=== PATIENT | female | born 1935 | race Caucasian/White ===

== ENCOUNTER → 2018-11-02 | Outpatient (CLI) | payer MEDICARE, SELFPAY ==
[2018-09-26 11:32] VITALS: BMI 29.2
--- NOTE | 2018-11-02 12:28 | CT_ITS ---
STUDY: CT BRAIN WITHOUT CONTRAST REASON FOR EXAM: Female, 83 years old. Slurred speech RADIATION DOSAGE (If Supplied By Facility): CTDIvol = ( 44.99 ) mGy, DLP = ( 745.49 ) mGycm TECHNIQUE: Transaxial CT imaging of the brain was performed without administration of intravenous contrast material. Sagittal and coronal 2-D MPR Individualized dose optimization techniques were used for this CT. COMPARISON: None 06/26/2015. FINDINGS: Paranasal sinuses clear. Prominent leftward bowing of the nasal septum. Mastoid air cells and middle ear cavities clear. Symmetric and grossly normal features of the vestibular and acoustic apparatus of the temporal bones. Craniofacial osseous structures normal. Extra cranial soft tissues including orbital contents appear normal. Mild symmetric expansion of lateral ventricles and extra axial spaces consistent with age-related cerebral atrophy. Patchy and partially confluent chronic low-density changes of the deep white matter most consistent with chronic microvascular ischemic disease. 6.3 mm lacunar focus within the right cerebellar hemisphere consistent with old lacunar infarct. There is no acute intracranial bleed, mass or mass effect nor any specific evidence of acute territorial infarct. CT/Brain/Head without Contrast IMPRESSION: No acute intracranial process. The small chronic appearing lacunar infarct of the right cerebellar hemisphere was not present on the prior study of 2014. The degree of chronic white matter disease of the cerebral hemispheres, and the degree of atrophy are quite similar. Electronically Signed: Earnest Cuba MD at 12:55 EDT Tel , Service support ,
--- NOTE | 2018-11-02 12:46 | ECHOCS_ITS ---
Reason For Study: CVA/TIA Procedure This was a 2D Doppler, Color Flow transthoracic echocardiogram. Exam performed in department. Left Ventricle Moderate concentric left ventricular hypertrophy. The estimated ejection fraction is 45 %. Paced septal motion. There are regional wall motion abnormalities as specified. Anterior [employer] : Akinetic. Mid-anteroseptal : Severely Hypokinetic. Right Ventricle Normal size and thickness. ICD or pacer leads identified within the right ventricle. Normal systolic function. Atria The left atrium is moderately enlarged. Normal right atrium. Mitral Valve Mild diffuse mitral valve thickening. Moderate mitral annular calcification. Trivial mitral valve insufficiency. Tricuspid Valve Normal tricuspid valve. Trivial tricuspid valve insufficiency. Right ventricular systolic pressure estimated to be 27 mmHg. Pulmonic Valve Normal pulmonic valve. Trivial pulmonic valve insufficiency. Great Vessels Normal aortic root. Normal arch. Normal inferior vena cava. Inferior vena cava collapse with sniff. Pericardium/Pleural No pericardial effusion. Medication 22 gauge I.V. with prn adaptor inserted into right arm. Diluted definity 3ml given slow IV push to enhance endocardial definition. Performed a rapid injection of agitated mix of 9 cc saline and 1cc air to assess for atrial septal defect. MMode/2D Measurements & Calculations LVIDd: 4.4 cm IVSd: 1.5 cm Ao root diam: 3.5 cm LVIDs: 3.4 cm LVPWd: 1.7 cm RVDd: 2.7 cm FS: 22.3 % LAV(MOD-bp): 73.4 ml LVAd ap4: 34.5 cm2 SV(MOD-sp4): 49.1 ml LAV(MOD-bp) Indexed: 42.2 ml/m2 EDV(MOD-sp4): 118.9 ml LAV(MOD-sp2): 64.1 ml EDV(sp4-el): 124.4 ml LAV(MOD-sp4): 78.5 ml LVAs ap4: 26.7 cm2 ESV(MOD-sp4): 69.8 ml ESV(sp4-el): 74.6 ml EF(MOD-sp4): 41.3 % EF(sp4-el): 40.0 % SV(sp4-el): 49.7 ml LA A4 area: 23.5 cm2 RA A4 area: 15.6 cm2 Time Measurements MV dec time: 0.24 sec Doppler Measurements & Calculations MV E max joshua: 72.3 cm/sec Lat Peak E' Joshua: 8.4 cm/sec Med Peak E' Joshua: 5.0 cm/sec MV A max joshua: 100.0 cm/sec E/E' lat: 8.6 E/E' med: 14.4 MV E/A: 0.72 MV V2 max: 128.1 cm/sec MV P1/2t max joshua: 98.2 cm/sec Ao V2 max: 134.9 cm/sec MV max P.6 mmHg MV P1/2t: 61.2 msec Ao max P.3 mmHg MV V2 mean: 69.3 cm/sec Ao V2 mean: 79.0 cm/sec MV mean P.3 mmHg MV dec slope: 470.1 cm/sec2 Ao mean P.1 mmHg MV V2 VTI: 32.0 cm MVA(P1/2t): 3.6 cm2 Ao V2 VTI: 25.0 cm LV V1 max: 114.7 cm/sec PA V2 max: 112.7 cm/sec PI end-d joshua: 117.5 cm/sec LV V1 max P.3 mmHg LV V1 mean P.3 mmHg LV V1 mean: 67.1 cm/sec LV V1 VTI: 24.7 cm TR max joshua: 244.3 cm/sec TR max P.0 mmHg Interpretation Summary Moderate concentric left ventricular hypertrophy. The estimated ejection fraction is 45 %. There are regional wall motion abnormalities as specified. The left atrium is moderately enlarged. Trivial mitral valve insufficiency. Trivial tricuspid valve insufficiency. Right ventricular systolic pressure estimated to be 27 mmHg. Compared to echo report dated 10/14/2015, no appreciable changes noted. The study was technically difficult. Contrast injection was performed. Ordering Physician: Toya Mark Referring Physician: Toya Mark Performed By: Andres Wilson RCS
--- NOTE | 2018-11-02 12:46 | CDU_ITS ---
Reason For Study: slurred speech Rt. Velocities/BP Lt. Velocities/BP Prox CCA 97.2/11.3 cm/sec. Prox CCA 83.8/7.1 cm/sec. Mid CCA 106.3/16.8 cm/sec. Mid CCA 65.0/13.4 cm/sec. Dist CCA 84.4/13.2 cm/sec. Dist CCA 42.9/14.6 cm/sec. Prox ICA 54.3/7.6 cm/sec. Prox ICA 49.3/9.8 cm/sec. Mid ICA 58.0/16.2 cm/sec. Mid ICA 72.3/13.4 cm/sec. Dist ICA 71.6/10.3 cm/sec. Dist ICA 89.7/21.7 cm/sec. Rt. ICA/CCA = 71.6/106.3=0.7. Lt. ICA/CCA = 89.7/65.0=1.38. Prox ECA 75.3/9.5 cm/sec. Prox ECA 82.1/13.4 cm/sec. Rt. Vert. 31.4/5.9 cm/sec. Lt. Vert. 39.5/10.9 cm/sec. Right Extracranial There is homogeneous, smooth atherosclerotic plaque noted in the right common carotid artery. There is homogeneous, smooth atherosclerotic plaque noted in the right internal carotid artery. There is intimal thickening but no significant atherosclerotic plaque noted in the right external carotid artery. Antegrade flow is noted in the right vertebral artery. Left Extracranial There is homogeneous, smooth atherosclerotic plaque noted in the left common carotid artery. There is homogeneous, smooth atherosclerotic plaque noted in the left internal carotid artery. There is heterogeneous, irregular atherosclerotic plaque noted in the left external carotid artery. Antegrade flow is noted in the left vertebral artery. Interpretation Summary Mild (<50%) stenosis right extracranial internal carotid. Mild (<50%) stenosis left extracranial internal carotid. Flow within the vertebral arteries is antegrade bilaterally. Ordering Physician: Toya Mark Referring Physician: Toya Mark Performed By: Lana Ball, MANJEET, RVT
== END | disposition home or self-care (01) ==
PROVIDERS: Family Provider Internal Medicine; PCP Internal Medicine; Referring Provider Internal Medicine; Visit Provider Internal Medicine
DX: R47.81 Slurred speech (principal); R94.31 Abnormal electrocardiogram [ECG] [EKG]
CPT/HCPCS: 70450; 93306; 93880; Q9957; A4216; C8929

== ENCOUNTER → 2020-04-02 14:38 | Outpatient (CLI) | payer MEDICARE, SELFPAY ==
[2020-02-19 15:44] VITALS: BMI 30.7
--- NOTE | 2020-04-02 14:50 | RAD_ITS ---
STUDY: X-RAY CHEST REASON FOR EXAM: Female, 85 years old. PRE OPP PPM GENERATOR CHANGE TECHNIQUE: PA and lateral views of the chest. COMPARISON: Comparison is made with prior examination of 06/26/2013. FINDINGS: Hyperinflation. Stable mild increased markings at the lung bases suggestive of mild bibasilar scarring. There is no demonstrated pleural abnormality. Sternal cerclage wires and vascular clips are present from a prior sternotomy and coronary artery bypass graft procedure (CABG). A left-sided dual-chamber pacemaker is seen. Normal mediastinum and eve. Normal visualized pulmonary arteries. There is atherosclerotic tortuosity of the aortic arch and descending thoracic aorta. There are diffuse degenerative changes of the visualized thoracic spine. Normal visualized ribs, clavicles, and shoulders. There is no demonstrated abnormality of the visualized soft tissue structures of the upper abdomen. RAD/Chest PA and Lateral IMPRESSION: Hyperinflation. Stable mild increased markings at the lung bases suggestive of mild scarring. Electronically Signed: Rito Puente, at 15:08 EDT , Service support ,
[2020-04-02 15:27] LABS: Bacteria 0 SEEN /hpf (None Seen); Mucous, Urine 0 SEEN /hpf (<or=2+)
[2020-04-02 15:48] LABS: Hematocrit 38.6 % (37-47); Hemoglobin 12.3 g/dL (12.0-15.0); Mean Corp Hgb Conc 31.9 g/dL (32-36); Mean Corpuscular Hgb 29.8 pg (27.0-32.0); Mean Corpuscular Volume 93.5 fL (81-99); Mean Platelet Vol. 11.2 fl (6.2-12.0); Platelet Count 157 K/mm3 (150-450); RBC Distribution Width SD 44.6 fl (35.1-43.9); Red Blood Count 4.13 M/mm3 (4.2-5.4)
[2020-04-02 15:55] LABS: Color, Urine Yellow (Yellow); Glucose, Dipstick 100 mg/dl (Normal); Ketone-Dipstick Negative (Negative); Leukocyte Esterase-Dipstick 25 /ul (Negative); Nitrite-Dipstick Negative (Negative); Occult Blood-Urine 25 /ul (Negative); Protein-Dipstick 15 mg/dl (Negative); Urine Bilirubin Dipstick Negative (Negative); Urine Clarity Clear (Clear); Urine Urobilinogen 1 mg/dl (Normal); Urine pH 6.5 (5.0 - 8.0)
[2020-04-02 16:02] LABS: International Normalized Ratio 1.2
[2020-04-02 16:26] LABS: Hyaline Cast 0-5 SEEN /lpf (0-5)
[2020-04-02 16:28] LABS: Red Blood Cells-Urine 0-5 SEEN /hpf (0-5); Squamous Epithelial Cells - UA 0-5 SEEN /hpf (5-10); White Blood Cells 5-10 SEEN /hpf (0-5)
[2020-04-02 16:41] LABS: Anion Gap 7 (5-15); BUN 17 mg/dL (7-18); BUN/Creat Ratio 17.9 RATIO (10-20); Calcium,Total 9.4 mg/dL (8.5-10.1); Chloride 109 mmol/L (98-107); Creatinine, Serum 0.95 mg/dL (0.55-1.02); EST Glomerular Filtration Rate 59 mL/min (>60); Est Glom Filt Rate - Afr Amer 72 mL/min (>60); Glucose 134 mg/dL (74-106); Potassium 3.7 mmol/L (3.5-5.1); Sodium Level 141 mmol/L (136-145)
== END ==
LOC: RAD 14:42
PROVIDERS: PCP Internal Medicine; Referring Provider Internal Medicine Cardiovascular Disease; Visit Provider Internal Medicine Cardiovascular Disease
DX: I25.5 Ischemic cardiomyopathy (principal); I42.8 Other cardiomyopathies; I48.0 Paroxysmal atrial fibrillation; I49.5 Sick sinus syndrome; Z95.0 Presence of cardiac pacemaker; I25.10 Atherosclerotic heart disease of native coronary artery without angina pectoris; I44.7 Left bundle-branch block, unspecified
CPT/HCPCS: 36415; 71046; 80048; 81001; 85027; 85610

== ENCOUNTER 2020-04-05 15:55 | Emergency (ER) | payer OTHER, SELFPAY ==
[2020-04-05 15:55] VITALS: BMI 29.9
[2020-04-05 15:56] VITALS: BP 156/77; PULSE 60; RESP 16; TEMP 36.2; O2SAT 98; BMI 29.9
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
== END 2020-04-05 18:09 | disposition home or self-care (01) ==
LOC: ED 17:18
PROVIDERS: Emergency Provider Student in an Organized Health Care Education/Training Program; PCP Internal Medicine
DX: S29.012A Strain of muscle and tendon of back wall of thorax, initial encounter (principal); S16.1XXA Strain of muscle, fascia and tendon at neck level, initial encounter; S09.90XA Unspecified injury of head, initial encounter; I25.10 Atherosclerotic heart disease of native coronary artery without angina pectoris; Z95.5 Presence of coronary angioplasty implant and graft; Z95.1 Presence of aortocoronary bypass graft; Z95.0 Presence of cardiac pacemaker; Z79.02 Long term (current) use of antithrombotics/antiplatelets; V89.2XXA Person injured in unspecified motor-vehicle accident, traffic, initial encounter
CPT/HCPCS: 70450; 72125; 72128; 99282

== ENCOUNTER 2020-04-09 10:15 | Day surgery (SDC) | payer MEDICARE, SELFPAY ==
[2020-02-19 15:44] VITALS: BMI 30.7
[2020-04-08 11:19] VITALS: BMI 29.9
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
--- NOTE | 2020-04-09 13:28 | CL.IE_ITS ---
Patient: VANESA SMITH Study Date: 04/09/2020 Performing: Nam Olson MD : 1935 Age: 85 Gender: female PROCEDURES PERFORMED [id number] REMOVAL+REPLACEMENT PACER-DUAL LEAD INDICATIONS Atrioventricular (AV) block End-of-life replacement indicator PROCEDURE DETAILS The patient was brought to the Catheterization Lab in the postabsorptive nonsedated state. Infor med consent was obtained prior to the procedure. Local anesthetic was given subcutaneously to the le ft upper chest area with Lidocaine 2%. Incision was made to the left upper chest. PPM generator was r emoved. Device pocket was irrigated with antibiotic. PPM generator was attached to the lead(s). PPM g enerator was then interrogated by the clinical data programmer. The PPM generator was sutured in place with 2-0 Sonja k. Subcutaneous closure was completed with 3-0 Vicryl. Skin closure was completed with 4-[address] angela-strips applied to Lt chest area. Pressure dressing applied to left chest. Instrument, sponge, and needle counts were noted to be normal. The patient tolerated the procedure well. Estimated Blood Loss: < 10 mls IMPLANTED / EX-PLANTED DEVICES IMPLANTED DEVICE(S): PPM Generator - Search Engine Marketing Manager: [employer], Model # [id number] , Serial # [id number] DEVICE PARAMETERS DEVICE PARAMETERS: Mode - dddr lower rate - 60 upper rate - 120 rate response on CONCLUSIONS / RECOMMENDATIONS Device Conclusions: Successful implantation of a dual chamber pacemaker battery change and replacemen t Device Recommendations: Follow up with Primary Care Physician PROCEDURE MEDICATIONS Versed 1 mg IV Fentanyl 25 mcg IV Fentanyl 25 mcg IV Versed 1 mg IV Oxygen: 2 L/min via nasal cannula Clindamycin 900 mg IV 04/09/2020 12:33:47 Signed By Nam Olson MD On 04/09/2020 13:28:22 Nam Olson MD
== END 2020-04-09 14:45 | disposition home or self-care (01) ==
LOC: CLSP 10:15
PROVIDERS: PCP Internal Medicine; Referring Provider Internal Medicine Cardiovascular Disease; Visit Provider Internal Medicine Cardiovascular Disease
DX: Z95.810 Presence of automatic (implantable) cardiac defibrillator (principal); I25.10 Atherosclerotic heart disease of native coronary artery without angina pectoris; I25.5 Ischemic cardiomyopathy; I49.5 Sick sinus syndrome; I48.0 Paroxysmal atrial fibrillation; E78.5 Hyperlipidemia, unspecified; I44.7 Left bundle-branch block, unspecified; I10 Essential (primary) hypertension; E66.9 Obesity, unspecified; Z68.29 Body mass index [BMI] 29.0-29.9, adult; Z95.1 Presence of aortocoronary bypass graft; Z95.5 Presence of coronary angioplasty implant and graft; Z79.899 Other long term (current) drug therapy
CPT/HCPCS: 33228; 99152; 99153; J7040; J7050

== ENCOUNTER → 2020-09-17 16:03 | Outpatient (CLI) | payer MEDICARE, SELFPAY ==
[2020-09-17 15:15] VITALS: BMI 31.2
[2020-09-17 17:30] LABS: Anion Gap 8 (5-15); BUN 15 mg/dL (7-18); BUN/Creat Ratio 12.7 RATIO (10-20); Calcium,Total 9.6 mg/dL (8.5-10.1); Chloride 107 mmol/L (98-107); Creatinine, Serum 1.18 mg/dL (0.55-1.02); EST Glomerular Filtration Rate 46 mL/min (>60); Est Glom Filt Rate - Afr Amer 56 mL/min (>60); Glucose 152 mg/dL (74-106); Potassium 3.7 mmol/L (3.5-5.1); Sodium Level 140 mmol/L (136-145)
== END ==
PROVIDERS: PCP Internal Medicine; Referring Provider Internal Medicine Cardiovascular Disease; Visit Provider Internal Medicine Cardiovascular Disease
DX: I10 Essential (primary) hypertension (principal); Z95.1 Presence of aortocoronary bypass graft
CPT/HCPCS: 36415; 80048

== ENCOUNTER → 2021-04-29 14:21 | Outpatient (CLI) | payer MEDICARE, SELFPAY ==
[2021-04-29 13:32] LABS: Absolute Lymphocyte Count 0.64 X10^3/uL (0.83-4.51); Basophil# 0.02 X10^3/uL; Basophil% 0.6 % (0-1); Eosinophil# 0.04 X10^3/uL; Eosinophils% 1.3 % (0-5); Hematocrit 34.1 % (37-47); Hemoglobin 11.1 g/dL (12.0-15.0); Lymphocyte # 0.64 X10^3/ul (0.83-4.51); Lymphocyte % 20.4 % (19-41); Mean Corp Hgb Conc 32.6 g/dL (32-36); Mean Corpuscular Hgb 30.7 pg (27.0-32.0); Mean Corpuscular Volume 94.2 fL (81-99); Mean Platelet Vol. 11.4 fl (6.2-12.0); Monocyte# 0.43 X10^3/uL; Monocyte% 13.7 % (0-10); NRBC Flagged by Analyzer 0 % (0-5); Neutrophil # 1.99 X10^3/uL (2.7-7.7); Neutrophil % 63.7 % (47-70); POSITIVE COUNT YES; Platelet Count 93 K/mm3 (150-450); Red Blood Count 3.62 M/mm3 (4.2-5.4); White Blood Count 3.1 K/mm3 (4.4-11.0)
[2021-04-29 13:44] LABS: Erythrocyte Sedimentation Rate 6 mm/hr (0-30)
[2021-04-29 14:14] LABS: ALB/GLOB Ratio 0.9 RATIO (0.9-2.4); AST(SGOT) 37 U/L (15-37); Alanine Aminotransfer ALT/SGPT 20 U/L (13-56); Albumin, Serum 2.9 g/dL (3.2-5.0); Alkaline Phosphatase 132 U/L (45-117); Anion Gap 10 (5-15); BUN 23 mg/dL (7-18); BUN/Creat Ratio 17.2 RATIO (10-20); Calcium,Total 8.9 mg/dL (8.5-10.1); Chloride 107 mmol/L (98-107); Creatinine, Serum 1.34 mg/dL (0.55-1.02); EST Glomerular Filtration Rate 40 mL/min (>60); Est Glom Filt Rate - Afr Amer 48 mL/min (>60); Globulin 3.4 g/dL (2.2-4.2); Glucose 128 mg/dL (74-106); Potassium 3.3 mmol/L (3.5-5.1); Protein, Total 6.3 g/dL (6.4-8.2); Sodium Level 142 mmol/L (136-145)
--- NOTE | 2021-04-29 14:24 | CT_ITS ---
STUDY: CT ABDOMEN AND PELVIS WITH CONTRAST REASON FOR EXAM: Female, 86 years old. ABDOMINAL PAIN AND BLOATING. PRIOR APPENDECTOMY AND PARTIAL COLECTOMY FOR DIVERTICULITIS RADIATION DOSAGE (If Supplied By Facility): CTDIvol = ( 20.24 ) mGy, DLP = ( 1022.60 ) mGycm TECHNIQUE: Transaxial images were obtained from the dome of the diaphragm to the symphysis pubis without oral contrast. Oral and amp; IV Gastrografin and amp; 100mL Isovue-300 was administered. Sagittal and coronal images were reconstructed. Individualized dose optimization techniques were used for this CT. COMPARISON: 04/07/2017 FINDINGS: Mild interstitial thickening in both lower lobes. Heart is enlarged. Large hiatal hernia containing both stomach and abdominal fat Liver demonstrates fatty infiltration and multilobulated appearance consistent with cirrhosis. No hepatic mass or bile duct dilatation.. Tiny calcified gallstones and mild thickening of the wall. Spleen is enlarged and homogeneous attenuation. Mild gastroesophageal varices consistent with portal hypertension. Normal pancreas. Normal bilateral adrenal glands. Normal right kidney. Normal left kidney. . Normal small intestine. Postop change status post sigmoid resection. Appendix not visualized consistent with appendectomy. Atherosclerotic changes of the aorta without evidence for aneurysm.. Normal inferior vena cava. Normal retroperitoneum. Massive ascitic fluid noted within the abdomen and pelvis with mesenteric edema. Incompletely distended thick-walled prolapsed bladder. Moderate-sized umbilical hernia containing ascitic fluid. Lumbar spine demonstrates degenerative change CT/Abdomen/Pelvis WITH Contrast IMPRESSION: Hepatosplenomegaly and findings consistent with hepatic cirrhosis with massive abdominal pelvic ascites and changes consistent with portal hypertension. Cholelithiasis without definitive evidence for acute cholecystitis however this may be further assessed with HIDA scan if clinically warranted.. No evidence for small bowel obstruction. Status post appendectomy and resection of sigmoid colon Electronically Signed: Behzad Vee MD at 17:15 EDT , Service support ,
== END ==
LOC: CT 14:22
PROVIDERS: PCP Internal Medicine; Referring Provider Surgery; Visit Provider Surgery
DX: K62.5 Hemorrhage of anus and rectum (principal); K80.20 Calculus of gallbladder without cholecystitis without obstruction; R10.9 Unspecified abdominal pain; Z90.49 Acquired absence of other specified parts of digestive tract
CPT/HCPCS: 36415; 74177; 80053; 85025; 85652; 86140; Q9967

== ENCOUNTER 2021-05-01 06:05 | Day surgery (SDC) | payer MEDICARE, SELFPAY ==
[2021-05-01] VITALS (7 sets, daily range): BP systolic 107–175; BP diastolic 43–71; PULSE 80–98; RESP 16–18; TEMP 36–36.3; O2SAT 94–98; BMI 30.4
[2021-05-01] MEDS: Lactated Ringers 1,000 ML 100 ML IV (06:25)
[2021-05-01 06:45] LABS: Bedside Glucose 133 mg/dL (70-110)
--- NOTE | 2021-05-01 07:00 | COLBX_PTH ---
PATIENT: VANESA SMITH LOC: EN U#:[id number] AGE/SX: 86/F ROOM: RE05/01/[address]: Dr. Alfie Park MD : 1935 BED: DIS: 05/01/2021 SPEC #: [id number] RECD: 05/01/21 15:11 STATUS: JOSE ALEJANDRO RE #: [id number] ANA: 05/01/21 07:[address]: Alfie Park DEPT: SURGICAL PATHOLOGY RECD BY: Randi Diaz ENTERED: 05/02/21 07:45 SP TYPE: COLON BX OTHR DR: Dr. Toya Mark DO Tissues: Sigmoid colon biopsy Procedures: Surgery Specimen Level IV HEADER OPERATION: Colonoscopy (MAC) PRE-OP DIAGNOSIS: Rectal bleeding TISSUE SUBMITTED: Distal sigmoid anastomotic nodule MICROSCOPIC DIAGNOSIS Distal sigmoid anastomotic nodule, biopsy: Fragment of benign mucosa. AM:shanda 05/05/2021 MICROSCOPIC DESCRIPTION Slides are reviewed. GROSS DESCRIPTION Received in fixative is one container labeled with the patient's name and designated distal sigmoid anastomotic nodule. The specimen consists of one irregular fragment of light aldana soft tissue that measures 0.3 x 0.2 x 0.1 cm. The specimen is totally submitted in one cassette. / SJ:rg 05/02/21 TC:5 CPT: 01025
[2021-05-01] MEDS: Epinephrine (1 mg/ml) 1 MG/ML VIAL (07:30)
[2021-05-01] MEDS: 0.9% Normal Saline (Pres. free 10 ML Vial (07:30)
--- NOTE | 2021-05-01 07:45 | OP.CCLET_ITS ---
05/01/2021 John Flor, [address] [place] [address] Re : Colonoscopy procedure for Radha Fonseca Dear Dr. Flor This procedure was performed on April. My impressions and recommendations are as follows: Impressions : - Hemorrhoids found on perianal exam. - Patent end-to-side colo-colonic anastomosis, characterized by erythema. - One 5 mm polyp in the distal sigmoid colon, removed with a cold biopsy forceps. Resected and retrieved. Injected. Clips were placed. Bleeding vigorously noted after simple forcep biospy finally controlled with epi injection and clips x 3--forceful venous bleeding - Diverticulosis in the sigmoid colon. - The examination was otherwise normal. Recommendations : - Discharge patient to home. - Resume previous diet. - Continue present medications. - Telephone my office for pathology results in 1 week. - No repeat colonoscopy due to current age (66 years or older). My findings are described in the full procedure note, which is enclosed. If I can be of further assistance, please feel free to contact me at Doctor phone number(s): Work: . Sincerely, Alfie Park MD 05/01/2021 7:44:59 AM This report has been signed electronically.
--- NOTE | 2021-05-01 07:45 | OP.COLON_ITS ---
Patient Name: Radha Fonseca Procedure Date: 05/01/2021 6:59 AM Date of : 1935 Age: 86 Procedure: Colonoscopy Indications: Rectal bleeding Providers: Alfie Park MD Medicines: See the Anesthesia note for documentation of the administered medications Patient Profile: Last Colonoscopy: more than 10 years ago. Complications: No immediate complications. Estimated blood loss: Minimal. Procedure: Pre-Anesthesia Assessment: - Prior to the procedure, a History and Physical was performed, and patient medications and allergies were reviewed. The patient's tolerance of previous anesthesia was also reviewed. The risks and benefits of the procedure and the sedation options and risks were discussed with the patient. All questions were answered, and informed consent was obtained. Prior Anticoagulants: The patient has taken Plavix (clopidogrel), last dose was 5 days prior to procedure. ASA Grade Assessment: III - A patient with severe systemic disease. After reviewing the risks and benefits, the patient was deemed in satisfactory condition to undergo the procedure. After I obtained informed consent, the scope was passed under direct vision. Throughout the procedure, the patient's blood pressure, pulse, and oxygen saturations were monitored continuously. The Colonoscope was introduced through the anus and advanced to the cecum, identified by appendiceal orifice and ileocecal valve. The colonoscopy was performed with difficulty due to excessive bleeding. The patient tolerated the procedure well. The quality of the bowel preparation was good. The ileocecal valve and the appendiceal orifice were photographed. Scope In: 7:07:32 AM Scope Withdrawal Time 0 hours 25 minutes 0 seconds Scope Out: 7:36:10 AM Total Procedure Duration Time 0 hours 28 minutes 38 seconds Findings: Hemorrhoids were found on perianal exam. There was evidence of a prior end-to-side colo-colonic anastomosis in the distal sigmoid colon. This was patent and was characterized by erythema. A 5 mm polyp was found in the distal sigmoid colon. The polyp was sessile. The polyp was removed with a cold biopsy forceps. Resection and retrieval were complete. Area was successfully injected with 8 mL of a 1:10,000 solution of epinephrine for hemostasis of bleeding caused by the procedure. To prevent bleeding after the biopsy, three hemostatic clips were successfully placed. There was no bleeding at the end of the procedure. Multiple diverticula were found in the sigmoid colon. The exam was otherwise without abnormality. Impression: - Hemorrhoids found on perianal exam. - Patent end-to-side colo-colonic anastomosis, characterized by erythema. - One 5 mm polyp in the distal sigmoid colon, removed with a cold biopsy forceps. Resected and retrieved. Injected. Clips were placed. Bleeding vigorously noted after simple forcep biospy finally controlled with epi injection and clips x 3--forceful venous bleeding - Diverticulosis in the sigmoid colon. - The examination was otherwise normal. Recommendation: - Discharge patient to home. - Resume previous diet. - Continue present medications. - Telephone my office for pathology results in 1 week. - No repeat colonoscopy due to current age (66 years or older). Procedure Code(s): --- Professional --- 53921, Colonoscopy, flexible; with biopsy, single or multiple Diagnosis Code(s): --- Professional --- K64.9, Unspecified hemorrhoids Z98.0, Intestinal bypass and anastomosis status D12.5, Benign neoplasm of sigmoid colon K62.5, Hemorrhage of anus and rectum K57.30, Diverticulosis of large intestine without perforation or abscess without bleeding CPT copyright 2017 [employer]. All rights reserved. The codes documented in this report are preliminary and upon hot pipe gauger review may be revised to meet current compliance requirements. Alfie Park MD 05/01/2021 7:44:59 AM This report has been signed electronically. Number of Addenda: 0 Note Initiated On: 05/01/2021 6:59 AM
[2021-05-01 08:34] LABS: International Normalized Ratio 1.5
--- NOTE | 2021-05-01 09:08 | SUR.PHASEII ---
Pt states Dr. Olson is physician who has prescribed Plavix. Pt instructed to call office today for instructions on when to resume. Pt verbalizing understanding
--- NOTE | 2021-05-01 09:29 | SUR.PHASEII ---
reminded pt to call dr cox office to find out when she should restart her blood thinner
[2021-05-02 05:07] LABS: HEPATITIS B SURFACE AG Negative (Negative); Hepatitis A IgM Antibody Negative (Negative); Hepatitis B Core AB IgM Negative (Negative)
[2021-05-02 12:40] LABS: Hep C Antibodies <0.1 s/co ratio (0.0-0.9)
== END 2021-05-01 09:28 | disposition home or self-care (01) ==
LOC: EN 06:36 → AC 06:38
PROVIDERS: PCP Internal Medicine; Referring Provider Internal Medicine; Visit Provider Surgery
PROC: 0DJD8ZZ Inspection of Lower Intestinal Tract, Via Natural or Artificial Opening Endoscopic (ICD-10-PCS; CPT 45378; principal; 2021-05-01 06:55)
DX: K64.9 Unspecified hemorrhoids (principal); D12.5 Benign neoplasm of sigmoid colon; K62.5 Hemorrhage of anus and rectum; K57.30 Diverticulosis of large intestine without perforation or abscess without bleeding; I25.10 Atherosclerotic heart disease of native coronary artery without angina pectoris; I42.8 Other cardiomyopathies; I48.0 Paroxysmal atrial fibrillation; I49.5 Sick sinus syndrome; I85.00 Esophageal varices without bleeding; I44.7 Left bundle-branch block, unspecified; I25.2 Old myocardial infarction; I10 Essential (primary) hypertension; E78.5 Hyperlipidemia, unspecified; M19.90 Unspecified osteoarthritis, unspecified site; E11.9 Type 2 diabetes mellitus without complications; K21.9 Gastro-esophageal reflux disease without esophagitis; K74.60 Unspecified cirrhosis of liver; G25.81 Restless legs syndrome; E66.9 Obesity, unspecified; Z95.1 Presence of aortocoronary bypass graft; Z95.0 Presence of cardiac pacemaker; Z98.0 Intestinal bypass and anastomosis status; Z79.82 Long term (current) use of aspirin; Z79.02 Long term (current) use of antithrombotics/antiplatelets; Z79.84 Long term (current) use of oral hypoglycemic drugs; Z79.899 Other long term (current) drug therapy; Z20.822 Contact with and (suspected) exposure to COVID-19; Z86.73 Personal history of transient ischemic attack (TIA), and cerebral infarction without residual deficits
CPT/HCPCS: 45380; 80074; 82962; 85610; 87426; 88305; J7120; J2405; J3490

== ENCOUNTER → 2021-05-02 09:30 | Outpatient (CLI) | payer MEDICARE, SELFPAY ==
[2021-05-02 10:31] LABS: Ferritin 254 ng/mL (8-252)
[2021-05-03 21:08] LABS: Anti-Mitochondrial AB <20.0 Units (0.0-20.0)
[2021-05-05 14:08] LABS: Albumin 2.9 g/dL (2.9-4.4); Alpha-1-Globulins 0.4 g/dL (0.0-0.4); Alpha-2-Globulins 0.7 g/dL (0.4-1.0); Immunoglobulin A 333 mg/dL (64-422); Immunoglobulin G 730 mg/dL (586-1602); Immunoglobulin M 124 mg/dL (26-217); PROEL- TOTAL PROTEIN 5.8 g/dL (6.0-8.5)
[2021-05-06 12:55] LABS: Anti-Smooth Muscle ABS 4 Units (0-19)
[2021-05-06 12:56] LABS: AFP, Tumor Marker 1.4 ng/mL (0.0-8.3)
== END ==
PROVIDERS: PCP Internal Medicine; Referring Provider Internal Medicine Gastroenterology; Visit Provider Internal Medicine Gastroenterology
DX: K74.60 Unspecified cirrhosis of liver (principal); R18.8 Other ascites; I48.0 Paroxysmal atrial fibrillation
CPT/HCPCS: 36415; 82105; 82140; 82728; 82784; 83516; 84165; 86334

== ENCOUNTER → 2021-05-07 11:46 | Outpatient (CLI) | payer MEDICARE, SELFPAY ==
--- NOTE | 2021-05-07 | FLU_PTH ---
PATIENT: VANESA SMITH LOC: [facility]#:[id number] AGE/SX: 89/F ROOM: RE05/07/[address]: Dr. Alfie Park MD : [id number] BED: DIS: SPEC #: [id number] RECD: 05/07/21 12:57 STATUS: JOSE ALEJANDRO DARIAN #: [id number] ANA: 05/07/21 00:[address]: Alfie Park DEPT: CYTOLOGY RECD BY: Randi Diaz ENTERED: 05/08/21 07:53 SP TYPE: Fluid OTHR DR: Dr. Toya Mark, Tissues: PARACENTESIS FLUID Procedures: Special Stain Group II Surgery Specimen Level IV Cytospin Fluid HEADER OPERATION: Ultrasound-guided left paracentesis PRE-OP DIAGNOSIS: Ascites TISSUE SUBMITTED: Paracentesis fluid for cytology DIAGNOSIS CYTOLOGY Paracentesis fluid for cytology (cytospin and cell block): Negative for malignant cells. AM:shanda 05/09/2021 CYTOLOGY STUDY Slides are reviewed. CYTOLOGY GROSS Received is 175 ml of cloudy yellow fluid labeled with the patient's name and and designated per the requisition as paracentesis. Submitted for cytology preparation including cell block. / shanda 05/08/2021 TC:5 CPT: 25942, 56368
--- NOTE | 2021-05-07 11:50 | US_ITS ---
PROCEDURE: Ultrasound guided paracentesis. DATE OF EXAMINATION: 05/07/2021. INDICATION: Female, 86 years old. Ascites. PHYSICIAN: Rito Puente M.D. TECHNIQUE: The risks, benefits, and alternatives to the procedure were explained to the patient. The specific risks of bleeding, infection, and damage to bowel were detailed and accepted. Witnessed informed consent was obtained. The abdomen was ultrasonographically surveyed. An appropriate pocket of fluid was identified at the left lower quadrant. The skin were cleaned and prepped in the usual sterile fashion. Using ultrasound guidance, the peritoneal cavity was accessed with a 5-Faroese paracentesis needle/catheter system. The trocar was removed. A total of 3950 ml of jackie-colored fluid were removed from the peritoneal cavity. 200 mL fluid sample was sent to the laboratory for testing. The catheter was removed and a sterile dressing was applied. The procedure was well tolerated. US/Paracentesis with US IMPRESSION: Ultrasound guided paracentesis. Electronically Signed: Rito Puente MD at 14:02 EDT , Service support ,
[2021-05-07 12:13] VITALS: BP 171/73; BP 177/72; BP 183/79; PULSE 72; PULSE 73; PULSE 74; RESP 16; RESP 18; TEMP 36.9; O2SAT 96
[2021-05-07] MEDS: Lidocaine 2% (20 ml mdv) 20 ML Vial (12:15)
[2021-05-07 13:28] LABS: Cytology, Body Fluid / CSF SEE PATHOLOGY REPORT
[2021-05-07 14:01] LABS: Body Fluid Mononuclear WBC # 0.185 10^3/uL; Body Fluid Mononuclear WBC % 95.4 %; Body Fluid Polynuclear WBC # 0.009 10^3/uL; Body Fluid Polynuclear WBC % 4.6 %; Body Fluid Total Cells Counted 0.218 10^3/ul; White Blood Count/Body Fluid 0.194 10^3/uL
[2021-05-07 14:27] LABS: Glucose, Body Fluid 136 mg/dL (40-70); LDH,Body Fluid 48 Units/l (Not Establ.)
[2021-05-07 15:10] LABS: Auto B Fluid Analyzer BKGD Ct COUNTS W/IN LIMITS (W/IN LIMITS)
[2021-05-07 15:11] LABS: Appearance/Body Fluid SL CLDY; Color/Body Fluid YELLOW; Source- Body Fluid OTHER
[2021-05-07 15:18] LABS: Body Fluid QC Type(s) BF1Q; Lymphocytes 48 %; Monocytes 8 %; Neutrophil (Segs) 4 %; Other Cell Type/BF 40 %
[2021-05-07 15:19] LABS: Red Cell Count/Body Fluid 12 /mm3
--- NOTE | 2021-05-08 15:42 | NURSING ---
After follow up phone call was disconnected TORIBIO Wray unable to reach pt via cell phone 3x or house phone (left message to call back). TORIBIO Wray contacted son who was going immediately to her house to check on her. Son was advised to take pt to ED if she was having any weakness or syncope for GI bleed.
[2021-05-09 09:28] LABS: Pathologist Comment/Body Fluid Reviewed
[2021-05-09 15:37] LABS: Amylase Body Fluid 14 U/L (.)
== END | disposition home or self-care (01) ==
PROVIDERS: PCP Internal Medicine; Referring Provider Surgery; Visit Provider Surgery
DX: K74.60 Unspecified cirrhosis of liver (principal); R18.8 Other ascites
CPT/HCPCS: 49083; 82150; 82945; 83615; 84157; 88108; 88305; 88313; 89050

== ENCOUNTER → 2021-05-16 09:25 | Outpatient (CLI) | payer MEDICARE, SELFPAY ==
--- NOTE | 2021-05-16 13:41 | NURSING ---
At the beginning of PAT phone interview, pt SOB and coughing; states she is walking from room to room in her home. States Grandson is with her. Pt instructed that she will need a COVID test prior to EGD. Pt agreeable to continue phone interview. PAT info collected. When attempting to schedule COVID test, pt states the sooner the better. Pt informed that 1625 test time is available today. States she is unable to get in contact with son who would bring her. [facility] transportation offered as an option. Pt disagreeable to that. Pt states she is not sure she wants to have EGD done. Pt instructed to contact Dr Flor's office to cancel or reschedule. Pt states she doesn't know whether to proceed and get COVID test, or cancel. Pt encouraged to talk with her son and phone PAT to inform PAT of her decision.
== END ==
PROVIDERS: PCP Internal Medicine; Referring Provider Internal Medicine Gastroenterology; Visit Provider Internal Medicine Gastroenterology
DX: Z20.822 Contact with and (suspected) exposure to COVID-19 (principal)
CPT/HCPCS: 87426; C9803

== ENCOUNTER 2021-05-21 16:43 | Inpatient (IN) | payer MEDICARE, SELFPAY ==
[2021-05-21] VITALS (14 sets, daily range): BP systolic 148–176; BP diastolic 63–84; PULSE 77–102; RESP 20–29; TEMP 36.4–37.1; O2SAT 92–99; BMI 29.5; BMI 28.4
--- NOTE | 2021-05-21 17:31 | EKG12_ITS ---
Test Reason : SOB Blood Pressure : / mmHG Vent. Rate : 071 BPM Atrial Rate : 027 BPM P-R Int : 244 ms QRS Dur : 172 ms QT Int : 494 ms P-R-T Axes : -53 -55 101 degrees QTc Int : 536 ms AV dual-paced rhythm with prolonged AV conduction Abnormal ECG Confirmed by SERGO STEINBERG, TARA ([id number]), editor house organ JONNIE LÓPEZ ([id number]) on 05/22/2021 2:29:17 P M Referred By: WINSOME Confirmed By:FELIPA TROTTER MD
--- NOTE | 2021-05-21 17:31 | RAD_ITS ---
STUDY: X-RAY CHEST REASON FOR EXAM: Female, 86 years old. Sob TECHNIQUE: Single frontal view of the chest. COMPARISON: 04/02/2020. FINDINGS: Left cardiac device and median sternotomy wires. Near total opacification of the right hemithorax likely represents a large effusion. Superimposed pneumonia should be excluded clinically. Evaluation of the cardiac mediastinal silhouette. Normal visualized thoracic spine. Normal visualized ribs, clavicles, and shoulders. There is no demonstrated abnormality of the visualized soft tissue structures of the upper abdomen. RAD/Chest 1 View (Portable) IMPRESSION: Near total opacification of the right hemithorax likely represents a large effusion. Superimposed pneumonia should be excluded clinically. Electronically Signed: Warner Caruso MD at 18:49 EST Tel , Service support ,
--- NOTE | 2021-05-21 17:32 | EX.ED.DYSGE1 ---
HPI History of Present Illness Chief Complaint: Shortness of Breath Informant: patient and family Onset/Context/Timing Onset: Weeks Context: Gradual Onset Current Severity: Moderate Maximum Severity: Moderate Narrative Narrative: Patient presents with increasing shortness of breath for the past 2 weeks. She report has had 2 negative Covid tests in the last 2 and half weeks. She reports wheezing and increased lower extremity swelling. She has a nebulizer at home that she uses as scheduled. She denies fever. Cough is occasionally productive of clear to light yellow-colored sputum. [facility] Medical History Ambulates with cane Anxiety Arthritis Ascites Atherosclerotic heart disease of [place] coronary artery without angina pectoris Back pain Cancer Cardiology follow-up encounter Cirrhosis of liver Diabetes Dietary restriction Esophageal varices Essential hypertension Gastric reflux GERD (gastroesophageal reflux disease) History of atrial fibrillation History of diverticulitis History of echocardiogram History of edema History of GI bleed History of heart attack History of stress test History of thyroid nodule Hx of sigmoidoscopy Hyperlipidemia Hypertension Injury of head and neck Left bundle branch block Leg cramps Non-ischemic cardiomyopathy Non-smoker NSTEMI (non-ST elevated myocardial infarction) (11/27/11) Obesity Paroxysmal atrial fibrillation Rectal bleeding Restless legs Shortness of breath on exertion Tachy-maegan syndrome TIA (transient ischemic attack) TIA (transient ischemic attack) Type 2 diabetes mellitus without complication Vertigo Wears dentures Wears glasses Home Medications Lactobacillus rhamnosus GG 10 billion cell-inulin 200 mg capsule 1 cap PO DAILY cap 09/26/18 [History Last Taken Unknown] cholecalciferol (vitamin D3) 50 mcg (2,000 unit) tablet 2,000 unit PO DAILY 09/26/18 [History Last Taken Unknown] furosemide 40 mg tablet 40 mg PO DAILY 09/26/18 [History Last Taken Unknown] metformin 500 mg tablet,extended release 24 hr 500 mg PO DAILY tab 09/26/18 [History Last Taken 05/11/21] nitroglycerin 0.4 mg sublingual tablet 0.4 mg SUBLINGUAL Q5-15M PRN 09/26/18 [History Last Taken Unknown] magnesium oxide 400 mg (241.3 mg magnesium) tablet 400 mg PO DAILY 09/17/20 [History Last Taken Unknown] pantoprazole 40 mg tablet,delayed release 40 mg PO DAILY PRN PRN tab 09/17/20 [History Last Taken 05/01/21] losartan 100 mg tablet 100 mg PO DAILY #90 tab 09/18/20 [Rx Last Taken 05/01/21] potassium chloride 20 mEq tablet,extended release(part/cryst) 20 meq PO BID #4 tab 04/29/21 [Rx Last Taken Unknown] aspirin 81 mg tablet,delayed release 81 mg PO DAILY #30 tab 05/05/21 [Rx Last Taken Unknown] Allergy/AdvReac Type Severity Reaction Status Date / Time amoxicillin Allergy Severe Unknown Verified 05/21/21 16:50 levofloxacin [From Levaquin] Allergy Severe Unknown Verified 05/21/21 16:50 atorvastatin [From Lipitor] AdvReac Severe myalgias Verified 05/21/21 16:50 rosuvastatin [From Crestor] AdvReac Severe myalgias Verified 05/21/21 16:50 carvedilol [From Coreg] AdvReac upset Verified 05/21/21 16:50 stomach Family History Mother CAD (coronary artery disease) Father CAD (coronary artery disease) Sister Myocardial infarction Surgical History H/O coronary artery bypass surgery (03/11/12) History of coronary artery stent placement (11/28/11) History of left heart catheterization (~03/08/12) 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) History of sigmoidoscopy (~03/15/08) Hx of colonoscopy (04/2021) Hx of left cataract extraction Hx of right cataract extraction Social History Smoking Status: Never smoker second hand exposure: No alcohol intake: never substance use type: does not use caffeine: Yes Type: coffee Number of servings: 1 ROS ROS ED Constitutional Constitutional ED: Denies chills or fever(s) Eyes Eyes: Denies change in vision ENT ENT ED: Denies sore throat Cardiovascular Cardiovascular: Denies chest pain Respiratory/Chest Respiratory/Chest: Reports cough, dyspnea and sputum Gastrointestinal Gastrointestinal: Denies abdominal pain, diarrhea, nausea or vomiting Genitourinary Genitourinary ED: Denies dysuria Musculoskeletal Musculoskeletal: Reports myalgias; Denies back pain Integumentary Denies rash Neurologic Neurologic: Denies headache(s) or weakness Allergic/Immunologic Allergic/Immunologic ED: Denies urticaria EXAM Physical Exam Const Vital Signs: 05/21/21 16:47 05/21/21 16:53 05/21/21 17:00 Temperature 98.8 F 98.8 F Temperature Source Temporal Temporal Pulse Rate 77 77 Respiratory Rate 24 H 24 H Respiratory Effort Short of Breath Labored Blood Pressure 176/74 H 176/74 H Blood Pressure Mean 108 108 Pulse Ox 99 99 Oxygen Delivery Method Nasal Cannula Nasal Cannula Nasal Cannula Oxygen Flow Rate (L/min) 2 2 2 05/21/21 17:50 05/21/21 17:53 05/21/21 18:05 Temperature Temperature Source Pulse Rate 78 81 Respiratory Rate 29 H 22 H Respiratory Effort Blood Pressure Blood Pressure Mean Pulse Ox 96 97 Oxygen Delivery Method Nasal Cannula Nasal Cannula Oxygen Flow Rate (L/min) 2 2 05/21/21 19:10 Temperature Temperature Source Pulse Rate 85 Respiratory Rate 24 H Respiratory Effort Blood Pressure 148/63 H Blood Pressure Mean 91 Pulse Ox 93 Oxygen Delivery Method Nasal Cannula Oxygen Flow Rate (L/min) 2 Positive well nourished and well developed General Appearance ED: well developed HEENT Reports normocephalic and head/scalp atraumatic Eyes PERRL and EOMs intact bilaterally Neck supple Chest Wall inspection of chest normal and palpation of chest normal Resp normal respiratory effort Auscultation: wheezes expiratory wheezes and throughout Cardio regular rate and regular rhythm GI normal to inspection, nondistended, normoactive bowel sounds and non-tender Palpation: soft Extremity Extremity Narrative: 3+ bilateral lower extremity edema. General Extremety ED: Yes edema General Extremity: edema Neuro oriented x3 Sensorium / Orientation: alert Psych mental status grossly normal Skin no rashes or lesions noted MDM MDM MDM Narrative Medical decision making narrative: Patient given DuoNeb treatment along with albuterol. She is given IV Solu-Medrol. Lab work and chest x-ray ordered. Covid PCR test ordered. Lab Data Attestation: I reviewed the patient's lab results. Labs: Laboratory Results - last 24 hr 05/21/21 05/21/21 05/21/21 17:51 18:20 18:20 WBC 5.6 RBC 4.14 L Hgb 12.6 Hct 39.2 MCV 94.7 MCH 30.4 MCHC 32.1 RDW Std Deviation 52.3 H RDW Coeff of Laurita 14.9 H Plt Count 93 L MPV 10.9 Immature Gran % (Auto) 0.400 Neut % (Auto) 63.0 Lymph % (Auto) 17.4 L [place] % (Auto) 15.7 H Eos % (Auto) 3.0 Baso % (Auto) 0.5 Absolute Neuts (auto) 3.5 Absolute Lymphs (auto) 0.97 Nucleated RBC % 0 Sodium 139 Potassium 3.7 Chloride 104 Carbon Dioxide 28.0 Anion Gap 7 BUN 18 Creatinine 1.33 H Estim Creat Clear Calc 24.46 Est GFR (MDRD) Af Amer 49 L Est GFR (MDRD) Non-Af 40 L BUN/Creatinine Ratio 13.5 Glucose 137 H Calcium 9.4 Troponin I High Sens 31 COVID-19 (BERT) Negative Radiography Chest X-Ray - ED: 1 View, Read by ED Physician and Right Effusion Diagnostic Testing: Clinical Impression(s) from Imaging Studies Chest X-Ray 05/21/21 17:31 IMPRESSION: Near total opacification of the right hemithorax likely represents a large effusion. Superimposed pneumonia should be excluded clinically. Electronically Signed: Warner Caruso MD at 18:49 EST Tel , Service support , EKG Initial EKG: Attestation: I personally reviewed and interpreted this EKG as follows: Comments: AV paced at 71. Baseline artifact, but no obvious ischemia. Treatment and Re-Evaluation Comments:: Test results reviewed. Lab work unremarkable including negative Covid PCR test. Troponin is 31. Chest x-ray reveals near white out on the right secondary to large pleural effusion. On repeat exam patient continues to have wheezing. Test results were discussed with her and family at bedside. Patient will be admitted and given IV Lasix tonight. She will likely undergo thoracentesis tomorrow. Discharge Plan Triage Chief Complaint: Shortness of Breath ED Provider: Zahira Adame Dx/Rx/DC Orders Clinical Impression: COPD (chronic obstructive pulmonary disease), CHF (congestive heart failure), Pleural effusion Prescriptions: No Action cholecalciferol (vitamin D3) 2,000 unit tablet 2,000 unit PO DAILY RF: 0 nitroglycerin [Nitrostat] 0.4 mg tablet, sublingual 0.4 mg SUBLINGUAL Q5-15M PRN (Reason: Cardiac/Chest Pain) RF: 0 metformin 500 mg tablet extended release 24 hr 500 mg PO DAILY RF: 0 [facility] 10 billion cell -200 mg capsule 1 cap PO DAILY RF: 0 pantoprazole 40 mg tablet,delayed release (DR/EC) 40 mg PO DAILY PRN PRN (Reason: GERD) RF: 0 magnesium oxide 400 mg (241.3 mg magnesium) tablet 400 mg PO DAILY RF: 0 losartan 100 mg tablet 100 mg PO DAILY Qty: 90 RF: 3 aspirin [Adult Aspirin Regimen] 81 mg tablet,delayed release (DR/EC) 81 mg PO DAILY Qty: 30 RF: 12 Hold Instructions: paracentesis, and EGD potassium chloride 20 mEq tablet,ER particles/crystals 20 meq PO BID Qty: 4 RF: 0 furosemide 40 mg tablet 40 mg PO DAILY RF: 0 Primary Care Provider: Toya Mark Referrals: Toya Mark DO [Primary Care Provider] - Disposition Disposition: Acute Care Hospital [facility]
[2021-05-21] MEDS: Ipratropium/Albuterol Sulfate 3 ML AMPUL.NEB INHALATION ×2 (17:46→23:04)
[2021-05-21] MEDS: Albuterol 2.5 MG/3 ML VIAL.NEB. INHALATION ×3 (17:52)
[2021-05-21] MEDS: MethylPREDNISolone 125 MG/2 ML Vial IV (18:25)
[2021-05-21 18:35] LABS: Absolute Lymphocyte Count 0.97 X10^3/uL (0.83-4.51); Absolute Neutrophil Count 3.5 X10^3/uL (2.0-7.7); Basophil# 0.03 X10^3/uL; Basophil% 0.5 % (0-1); Eosinophil# 0.17 X10^3/uL; Hematocrit 39.2 % (37-47); Hemoglobin 12.6 g/dL (12.0-15.0); Lymphocyte # 0.97 X10^3/ul (0.83-4.51); Lymphocyte % 17.4 % (19-41); Mean Corp Hgb Conc 32.1 g/dL (32-36); Mean Corpuscular Hgb 30.4 pg (27.0-32.0); Mean Corpuscular Volume 94.7 fL (81-99); Mean Platelet Vol. 10.9 fl (6.2-12.0); Monocyte# 0.88 X10^3/uL; Monocyte% 15.7 % (0-10); NRBC Flagged by Analyzer 0 % (0-5); Neutrophil # 3.52 X10^3/uL (2.7-7.7); POSITIVE COUNT YES; Platelet Count 93 K/mm3 (150-450); RBC Distribution Width CV 14.9 % (11.6-14.6); RBC Distribution Width SD 52.3 fl (35.1-43.9); Red Blood Count 4.14 M/mm3 (4.2-5.4); White Blood Count 5.6 K/mm3 (4.4-11.0)
[2021-05-21 18:53] LABS: Anion Gap 7 (5-15); BUN 18 mg/dL (7-18); BUN/Creat Ratio 13.5 RATIO (10-20); Calcium,Total 9.4 mg/dL (8.5-10.1); Chloride 104 mmol/L (98-107); Creatinine, Serum 1.33 mg/dL (0.55-1.02); EST Glomerular Filtration Rate 40 mL/min (>60); Est Glom Filt Rate - Afr Amer 49 mL/min (>60); Estimated Creatinine Clearance 24.46 ml/min; Glucose 137 mg/dL (74-106); Potassium 3.7 mmol/L (3.5-5.1); Sodium Level 139 mmol/L (136-145); Troponin-I HS 31 pg/mL (3.0-54.0)
[2021-05-21 18:58] LABS: Probe Check PASS; Specimen Processing Control PASS
--- NOTE | 2021-05-21 19:59 | PCM.HP.STD ---
HPI - General General Date of Admission: 05/21/21 Date of Service: 05/21/21 Chief Complaint: Dyspnea, cough. HPI Narrative The patient is an 86 y/o F w/ PMHx: Tachy-Jozef syndrome, CAD s/p CABG and PCI, Anxiety and Depression, HTN, HLD, GERD w/ Hx varices/GI bleed Hx, Liver cirrhosis, Nonischemic cardiomyopathy, PAF, Diabetes mellitus type II, Asthma/COPD who presents to the [facility] ED on 05/21/21 with progressively worsening dyspnea over the last 2 weeks with increasing BL LE edema, weight gain and wheezing without fever and chills with occasional productive cough of clear to light yellow sputum prompting ED evaluation. In the ED patient fatigued appearing with increased work of breathing and accessory muscle usage. Work-up T 98.8, heart rate 77, BP initially 176/74 with most recent repeat 140/63, 96% on room air, CBC with WBC 5.6, Hgb 12.6, platelet 93 without marked shifts, BMP with BUN/Cr 18/1.33, glucose 137, trop 31, COVID PCR negative, CXR with near total opacification of the right hemithorax likely represents a large effusion although superimposed pneumonia cannot be excluded. [facility] Medical History Ambulates with cane Anxiety Arthritis Ascites Atherosclerotic heart disease of [place] coronary artery without angina pectoris Back pain Cancer Cardiology follow-up encounter Cirrhosis of liver Diabetes Dietary restriction Esophageal varices Essential hypertension Gastric reflux GERD (gastroesophageal reflux disease) History of atrial fibrillation History of diverticulitis History of echocardiogram History of edema History of GI bleed History of heart attack History of stress test History of thyroid nodule Hx of sigmoidoscopy Hyperlipidemia Hypertension Injury of head and neck Left bundle branch block Leg cramps Non-ischemic cardiomyopathy Non-smoker NSTEMI (non-ST elevated myocardial infarction) (11/27/11) Obesity Paroxysmal atrial fibrillation Rectal bleeding Restless legs Shortness of breath on exertion Tachy-jozef syndrome TIA (transient ischemic attack) TIA (transient ischemic attack) Type 2 diabetes mellitus without complication Vertigo Wears dentures Wears glasses Home Medications cholecalciferol (vitamin D3) 50 mcg (2,000 unit) tablet 2,000 unit PO DAILY 09/26/18 [History Last Taken 05/21/21] furosemide 40 mg tablet 40 mg PO DAILY 09/26/18 [History Last Taken 05/21/21] metformin 500 mg tablet,extended release 24 hr 500 mg PO DAILY tab 09/26/18 [History Last Taken 05/11/21] nitroglycerin 0.4 mg sublingual tablet 0.4 mg SUBLINGUAL Q5-15M PRN 09/26/18 [History Last Taken Unknown] magnesium oxide 400 mg (241.3 mg magnesium) tablet 400 mg PO DAILY 09/17/20 [History Last Taken 05/21/21] pantoprazole 40 mg tablet,delayed release 40 mg PO DAILY PRN PRN tab 09/17/20 [History Last Taken 05/19/21] aspirin [Adult Aspirin Regimen] 81 mg PO DAILY 05/21/21 [History Last Taken Unknown] losartan 100 mg PO DAILY 05/21/21 [History Last Taken 05/21/21] potassium chloride 10 meq PO DAILY 05/21/21 [History Last Taken 05/19/21] Allergy/AdvReac Type Severity Reaction Status Date / Time amoxicillin Allergy Severe Unknown Verified 05/21/21 16:50 levofloxacin [From Levaquin] Allergy Severe Unknown Verified 05/21/21 16:50 atorvastatin [From Lipitor] AdvReac Severe myalgias Verified 05/21/21 16:50 rosuvastatin [From Crestor] AdvReac Severe myalgias Verified 05/21/21 16:50 carvedilol [From Coreg] AdvReac upset Verified 05/21/21 16:50 stomach Family History Mother CAD (coronary artery disease) Father CAD (coronary artery disease) Sister Myocardial infarction Surgical History H/O coronary artery bypass surgery (03/11/12) History of coronary artery stent placement (11/28/11) History of left heart catheterization (~03/08/12) 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) History of sigmoidoscopy (~03/15/08) Hx of colonoscopy (04/2021) Hx of left cataract extraction Hx of right cataract extraction Social History Smoking Status: Never smoker second hand exposure: No alcohol intake: never substance use type: does not use caffeine: Yes Type: coffee Number of servings: 1 ROS ROS Narrative Admission Review of Systems: CONSTITUTIONAL: No weight loss, fever, chills, + weakness or fatigue. HEENT: Eyes: No visual loss, blurred vision, double vision or yellow sclerae. Ears, Nose, Throat: No hearing loss, sneezing, congestion, runny nose or sore throat. SKIN: No rash or itching, lesions, wounds. CARDIOVASCULAR: + Edema, orthopnea, No chest pain, chest pressure or chest discomfort, palpitations, syncopal events. RESPIRATORY: + shortness of breath, cough with occasional sputum, wheezing, No hemoptysis. GASTROINTESTINAL: + anorexia, No nausea, vomiting or diarrhea, abdominal pain, melena, BRBPR. GENITOURINARY: No dysuria, frequency, urgency or retention. NEUROLOGICAL: No headache, dizziness, syncope, paralysis, ataxia, numbness or tingling in the extremities, focal weakness, change in bowel or bladder control, seizure. MUSCULOSKELETAL: + muscle, back pain, joint pain or stiffness. HEMATOLOGIC:+ anemia, bleeding or bruising. LYMPHATICS: No enlarged nodes. No history of splenectomy. PSYCHIATRIC: No history of depression or anxiety. ENDOCRINOLOGIC: No reports of sweating, cold or heat intolerance. No polyuria or polydipsia. ALLERGIES: + history of asthma, hives, eczema or rhinitis. Vital Signs Vital Signs Vital Signs: 05/21/21 16:47 05/21/21 16:53 05/21/21 17:00 Temperature 98.8 F 98.8 F Temperature Source Temporal Temporal Pulse Rate 77 77 Respiratory Rate 24 H 24 H Respiratory Effort Short of Breath Labored Blood Pressure 176/74 H 176/74 H Blood Pressure Mean 108 108 Pulse Ox 99 99 Oxygen Delivery Method Nasal Cannula Nasal Cannula Nasal Cannula Oxygen Flow Rate (L/min) 2 2 2 05/21/21 17:50 05/21/21 17:53 05/21/21 18:05 Temperature Temperature Source Pulse Rate 78 81 Respiratory Rate 29 H 22 H Respiratory Effort Blood Pressure Blood Pressure Mean Pulse Ox 96 97 Oxygen Delivery Method Nasal Cannula Nasal Cannula Oxygen Flow Rate (L/min) 2 2 05/21/21 19:10 Temperature Temperature Source Pulse Rate 85 Respiratory Rate 24 H Respiratory Effort Blood Pressure 148/63 H Blood Pressure Mean 91 Pulse Ox 93 Oxygen Delivery Method Nasal Cannula Oxygen Flow Rate (L/min) 2 Weight Weight: 164 lb Body Mass Index (BMI) 29.5 Physical Exam Narrative Physical Examination: General: Awake, alert, oriented x 3 and cooperative, seated upright in the ED bed, fatigued and ill-appearing, increased work of breathing accessory muscle usage evident. Skin: Normal color, normal turgor, no icterus, no cyanosis except occasional staged ecchymoses. HEENT: AT/NC, EOMI, PERRLA, dry MM, no carotid bruits, + JVD noted. Lungs: Diminished, mildly coarse, rales bases, right significantly reduced compared to left, increased work of breathing accessory muscle usage evident, evidence of respiratory compromise, diffuse primarily left-sided and expiratory wheezing. Heart: Regular rate and rhythm; no gallop, rub audible. Abdomen: Soft, NTTP, ND, normal BS, no HSM. Extremities: No cyanosis, no clubbing, bilateral lower extremity pedal to proximal moise not markedly pitting edema. Neurological: Patient awake, alert, oriented as noted, cognitive function intact; pupils equally reactive to light and accommodation, cranial nerves II-XII grossly normal, moving all 4 extremities, no focal deficits, strength severely global decrease secondary to acute presentation. Psychiatric: Affect appears fatigued, increased work of breathing, accessory muscle usage consistent with respiratory compromise, no acute evidence of depressive or anxiety feelings. Results Lab / Micro Data Result Diagrams: 05/21/21 18:20 05/21/21 18:20 Labs: Laboratory Results - last 24 hr 05/21/21 17:51: COVID-19 (BERT) Negative 05/21/21 18:20: WBC 5.6, RBC 4.14 L, Hgb 12.6, Hct 39.2, MCV 94.7, MCH 30.4, MCHC 32.1, RDW Std Deviation 52.3 H, RDW Coeff of Laurita 14.9 H, Plt Count 93 L, MPV 10.9, Immature Gran % (Auto) 0.400, Neut % (Auto) 63.0, Lymph % (Auto) 17.4 L, Grant % (Auto) 15.7 H, Eos % (Auto) 3.0, Baso % (Auto) 0.5, Absolute Neuts (auto) 3.5, Absolute Lymphs (auto) 0.97, Nucleated RBC % 0 05/21/21 18:20: Sodium 139, Potassium 3.7, Chloride 104, Carbon Dioxide 28.0, Anion Gap 7, BUN 18, Creatinine 1.33 H, Estim Creat Clear Calc 24.46, Est GFR (MDRD) Af Amer 49 L, Est GFR (MDRD) Non-Af 40 L, BUN/Creatinine Ratio 13.5, Glucose 137 H, Calcium 9.4, Troponin I High Sens 31 Radiology Impression Chest X-Ray 05/21/21 17:31 IMPRESSION: Near total opacification of the right hemithorax likely represents a large effusion. Superimposed pneumonia should be excluded clinically. Electronically Signed: Warner Caruso MD at 18:49 EST Tel , Service support , Assessment & Plan Assessment/Plan (1) Acute respiratory failure with hypoxia: (2) CHF (congestive heart failure): QUALIFIERS: Heart failure type: unspecified Heart failure chronicity: acute Qualified Code(s): I50.9 - Heart failure, unspecified (3) COPD (chronic obstructive pulmonary disease): QUALIFIERS: COPD type: COPD with acute exacerbation Qualified Code(s): J44.1 - Chronic obstructive pulmonary disease with (acute) exacerbation PLAN: The patient is an 86 y/o F w/ PMHx: Tachy-Jozef syndrome, CAD s/p CABG and PCI, Anxiety and Depression, HTN, HLD, GERD w/ Hx varices/GI bleed Hx, Liver cirrhosis, Nonischemic cardiomyopathy, PAF, Diabetes mellitus type II, Asthma/COPD who presents to the [facility] ED on 05/21/21 with progressively worsening dyspnea over the last 2 weeks with increasing BL LE edema, weight gain and wheezing without fever and chills with occasional productive cough of clear to light yellow sputum prompting ED evaluation. 1. Acute Hypoxic Respiratory Failure, Multifactorial, secondary to Suspected Acute Decompensated CHF, Unclear type w/ Nonischemic Cardiomyopathy complicated by R sided Large Effusion and #2: Patient administered IV lasix in the ED, will admit to PCU, maintain on cardiac telemetry, obtain cardiac enzyme series, obtain serial EKGs, will request BNP as not obtained in the ED, continue IV lasix diuresis, monitor I/Os, maintain on intake restriction, continue medical therapy, obtain TSH and magnesium level. Most recent ECHO noted 11/02/2018 with moderate concentric LVH, EF 45%, regional wall motion abnormalities, moderately enlarged LA, trivial MVI, trivial TVI, RVSP 27 mm Hgb but given timeline will request repeat. Will request AM thoracentesis. Procalcitonin requested. 2. Acute on chronic COPD/Asthma exacerbation with Hypoxia: Will maintain on oxygen with wean as tolerated to room air, continue ATC duonebs, PRN albuterol, IV methylprednisolone, HOB, IS parameters, sputum culture, respiratory panel, procalcitonin, antigens requested to be cautious. 3. PAF: Not on rate or rhythm agent per review of records, s/p pacemaker, not anticoagulated likely secondary to underlying history of GI bleeds with varices with liver cirrhosis. 4. Hx Tachy-Jozef syndrome: s/p pacemaker placement. 5. CAD: s/p CABG and PCI, continue asa, losartan, not on BB or statin as noted. 6. Diabetes mellitus type II: Hold oral home regimen, ADA diet, accu checks w/ ISS. 7. Hypertension: Continue home regimen including IV Lasix as noted above,losartan, not on BB therapy, PRN hydralazine. 8. Hyperlipidemia: Not on regimen, likely secondary to liver disease history. 9. Chronic thrombocytopenia: Admission Plts 93, paseline appears similar with 90-130 primarily, repeat CBC in AM. 10. Anxiety and Depression: Not on regimen, encourage outpatient follow-up. 11. GERD w/ Hx GI bleed, varices: Continue home PPI. 12. DVT Prophylaxis: SCDs, hold chemoprophylaxis for AM thoracentesis. 13. CODE status: Discussed CODE status at length including difference between FULL code, DNR-CCA and DNR-CC status. Following discussions about the differences in these status, requested DNR-CCA, no intubation status. Advanced Care Planning Face to Face Time: 16 minutes. Charges/Coding Visit Charges Inpatient E&M: 84154 Init Hosp L3 Procedures Hospitalists Procedures: 55301 Advncd Care Plan 30 Min
[2021-05-21] MEDS: Furosemide 40 MG/4 ML Vial IV (20:17)
--- NOTE | 2021-05-21 21:02 | ECHOD_ITS ---
Reason For Study: CHF Procedure This was a 2D Doppler, Color Flow transthoracic echocardiogram. The study was technically difficult. Patient is sitting upright and is very SOB during exam,. Exam performed portable in patient room. Left Ventricle Normal LV size. Left ventricular systolic function is normal. The estimated ejection fraction is 60 %. Apical wall motion abnormality may reflect pacemaker activation. Right Ventricle Normal RV size. ICD or pacer leads identified within the right ventricle. Normal systolic function. Mitral Valve There is mild to moderate mitral annular calcification. Mild (1+) mitral valve insufficiency. Tricuspid Valve Normal tricuspid valve. Mild (1+) tricuspid valve insufficiency. Pulmonary artery systolic pressure is 45 mmHg. Aortic Valve Trisinus/trileaflet aortic valve. Mild focal aortic valve calcification. Pericardium/Pleural No pericardial effusion. MMode/2D Measurements & Calculations LVIDd: 4.4 cm IVSd: 1.2 cm Ao root diam: 3.5 cm LVIDs: 2.9 cm LVPWd: 0.91 cm RVDd: 3.9 cm FS: 33.5 % LAV(MOD-bp): 26.2 ml LA dimension(2D): 3.6 cm LA A4 area: 10.5 cm2 LAV(MOD-bp) Indexed: 15.2 ml/m2 LAV(MOD-sp2): 26.0 ml LAV(MOD-sp4): 24.2 ml RA A4 area: 10.8 cm2 Doppler Measurements & Calculations MV E max joshua: 110.3 cm/sec Lat Peak E' Joshua: 7.7 cm/sec Med Peak E' Joshua: 9.1 cm/sec MV A max joshua: 133.8 cm/sec E/E' lat: 14.2 E/E' med: 12.1 MV E/A: 0.82 Ao V2 max: 155.9 cm/sec LV V1 max: 123.1 cm/sec PA V2 max: 154.0 cm/sec Ao max P.7 mmHg LV V1 max P.1 mmHg PI end-d joshua: 143.8 cm/sec TR max joshua: 319.5 cm/sec TR max P.8 mmHg ECHO/Echo Complete Interpretation Summary Normal LV size. Left ventricular systolic function is normal. The estimated ejection fraction is 60 %. There is mild to moderate mitral annular calcification. Mild focal aortic valve calcification. Apical wall motion abnormality may reflect pacemaker activation. Ordering Physician: Becky Roy Referring Physician: YONY ESCAMILLA Performed By: Julissa De Jesus, KAYLEECS, RVT
--- NOTE | 2021-05-21 21:09 | PCS.PANDOC ---
PANDEMIC DOCUMENTATION INITIATED: Date: 02/17/2021 Time: 190
[2021-05-21 21:37] LABS: Procalcitonin 0.09 ng/mL (0.00-0.09)
[2021-05-21 22:11] LABS: Bedside Glucose 168 mg/dL (70-110)
[2021-05-21] MEDS: 0.9% Saline Lock 10 ML Syringe IV (22:11)
[2021-05-21] MEDS: Insulin Lispro 100 UNIT/ML INSULN.PEN SC (22:11)
[2021-05-21 22:24] LABS: Troponin-I HS 36 pg/mL (3.0-54.0)
[2021-05-21] MEDS: guaiFENesin 10 ML UDC (200MG/10ML) 20 ML PO (23:05)
[2021-05-22] VITALS (18 sets, daily range): BP systolic 116–161; BP diastolic 64–85; PULSE 68–107; RESP 18–24; TEMP 36.6–37; O2SAT 94–98
[2021-05-22 00:37] LABS: Troponin-I HS 41 pg/mL (3.0-54.0)
[2021-05-22] MEDS: 0.9% Saline Lock 10 ML Syringe IV ×2 (05:23→13:46)
[2021-05-22] MEDS: Insulin Lispro 100 UNIT/ML INSULN.PEN SC ×4 (06:38→21:05)
[2021-05-22 06:50] LABS: Bedside Glucose 195 mg/dL (70-110)
[2021-05-22] MEDS: Ipratropium/Albuterol Sulfate 3 ML AMPUL.NEB INHALATION ×3 (07:01→20:36)
[2021-05-22 07:06] LABS: Absolute Lymphocyte Count 0.44 X10^3/uL (0.83-4.51); Absolute Neutrophil Count 3.8 X10^3/uL (2.0-7.7); Hematocrit 34.3 % (37-47); Hemoglobin 11.1 g/dL (12.0-15.0); Lymphocyte # 0.44 X10^3/ul (0.83-4.51); Lymphocyte % 9.8 % (19-41); Mean Corp Hgb Conc 32.4 g/dL (32-36); Mean Corpuscular Hgb 30.4 pg (27.0-32.0); Mean Platelet Vol. 11.4 fl (6.2-12.0); Monocyte# 0.19 X10^3/uL; Monocyte% 4.3 % (0-10); NRBC Flagged by Analyzer 0 % (0-5); Neutrophil # 3.81 X10^3/uL (2.7-7.7); Neutrophil % 85.2 % (47-70); POSITIVE COUNT YES; POSITIVE DIFFERENTIAL YES; Platelet Count 75 K/mm3 (150-450); RBC Distribution Width CV 14.8 % (11.6-14.6); RBC Distribution Width SD 51.8 fl (35.1-43.9); Red Blood Count 3.65 M/mm3 (4.2-5.4); White Blood Count 4.5 K/mm3 (4.4-11.0)
[2021-05-22 07:10] LABS: Differential Indicated SCAN CRITERIA MET
[2021-05-22] MEDS: Acetaminophen 325 MG Tablet 650 MG PO ×2 (07:36→21:04)
[2021-05-22 08:09] LABS: ALB/GLOB Ratio 0.8 RATIO (0.9-2.4); AST(SGOT) 38 U/L (15-37); Alanine Aminotransfer ALT/SGPT 25 U/L (13-56); Albumin, Serum 2.8 g/dL (3.2-5.0); Alkaline Phosphatase 123 U/L (45-117); Anion Gap 11 (5-15); BUN 23 mg/dL (7-18); BUN/Creat Ratio 16.8 RATIO (10-20); Calcium,Total 9.1 mg/dL (8.5-10.1); Chloride 105 mmol/L (98-107); Creatinine, Serum 1.37 mg/dL (0.55-1.02); EST Glomerular Filtration Rate 39 mL/min (>60); Est Glom Filt Rate - Afr Amer 47 mL/min (>60); Estimated Creatinine Clearance 23.74 ml/min; Globulin 3.5 g/dL (2.2-4.2); Glucose 182 mg/dL (74-106); Potassium 3.8 mmol/L (3.5-5.1); Protein, Total 6.3 g/dL (6.4-8.2); Sodium Level 141 mmol/L (136-145); Thyroid Stim Hormone (TSH) 2.08 uIU/mL (0.358-3.74)
[2021-05-22 08:16] LABS: Platelet Estimate MOD DEC (ADEQ)
[2021-05-22 08:24] LABS: BNP,B-Type NATRIURETIC PEPTIDE 162.4 pg/mL (0-100)
[2021-05-22 08:35] LABS: International Normalized Ratio 1.5; Prothrombin Time (Protime)PT. 17.1 SECONDS (11.7-14.9)
[2021-05-22 08:36] LABS: Partial Thromboplast Time 39.1 Seconds (24.1-36.2)
--- NOTE | 2021-05-22 09:20 | RAD_ITS ---
STUDY: X-RAY CHEST REASON FOR EXAM: Female, 86 years old. Post thoracentesis TECHNIQUE: AP inspiration and expiration views. COMPARISON: Comparison is made with prior examination dated 05/21/2021. FINDINGS: The patient is status post right thoracentesis. There is no evidence of pneumothorax. Residual right pleural-parenchymal changes persist. RAD/Chest Insp/Exp 2 View IMPRESSION: Status post right thoracentesis. There is no evidence of pneumothorax. Persistent pleural-parenchymal changes at the right lung base. Electronically Signed: Rito Puente MD at 15:17 EST , Service support ,
[2021-05-22] MEDS: Potassium Chloride Oral Tablet 10 MEQ PO (10:23)
[2021-05-22] MEDS: Losartan Potassium 100 MG Tablet PO (10:23)
[2021-05-22] MEDS: Furosemide 40 MG/4 ML Vial IV ×2 (10:23→16:58)
[2021-05-22] MEDS: Magnesium Chloride 64 MG Delay Rel.Tablet 128 MG PO (10:23)
[2021-05-22] MEDS: Cholecalciferol (VIT D3) 25 MCG TABLET (1,000 UNITS) 50 MCG PO (10:23)
[2021-05-22 11:05] LABS: Bedside Glucose 152 mg/dL (70-110)
[2021-05-22 11:07] LABS: ALB/GLOB Ratio 0.8 RATIO (0.9-2.4); Globulin 3.1 g/dL (2.2-4.2); LDH 237 U/L (84-246); Magnesium 1.4 mg/dL (1.6-2.6); Protein, Total 5.7 g/dL (6.4-8.2)
--- NOTE | 2021-05-22 11:45 | CASEMGMT ---
RN RAMIREZ TOURIST HOME KEEPER CM to room to meet with patient for initial transition planning/care coordination assessment. RN RAMIREZ introduced self and role at [facility]. Pt voices understanding and consents to assessment at this time. Pt sitting up in chair in room in no distress at this time. Pt is A/O at this time and answers all questions appropriately. Care providers, pharmacy, and demographics verified/updated at this time. PCP: Dr Mark Specialists: Dr Damon Park, Dr Villegas Preferred Pharmacy: [facility] Retail Insurance: MMO [facility] Prescription Benefit: Yes Living Will/HPOA: Has both LW and HPOA, who is her son, Pk. LNOK: Son, Pk. Grandson, Rene Living Arrangements: Lives w/GS, Rene (28-yr-old), in 2-story home w/basement. FFSU. 3 steps to enter. Pt state she is able to navigate them real good w/SBA only. Rene does not work and is w/pt most of the time. If he does need to leave the home, his mother (Pt's ex dtr-in-law) will stay w/pt. Rene will check in on her/knock on the door periodically while in the shower for safety and he does the home mgmt tasks. Pt manages her own meds and son, Abhishek, helps w/appts. Transportation: Family DME: has the following DME: shower chair, BSC (has, but does not use), cane, lift chair, nebulizer, BP machine, glucometer--states the batteries just and she has not replaced them yet. Pt states she will ask her family to get them for her before she returns home. Pt uses a whistle to alert her GS for help if she needs anything. No home O2. Provided w/list of local DME companies and pt states has no preference on DME company should he need O2 at home. Agreeable to [employer]. Pt states no need for further DME at this time. HHC/SNF: Hx of going to [facility]. No hx of HHC. Pt states she prefers to return home @ discharge, if able, but states would consider a SNF if she is too weak to return home and if recommended by therapy. If pt able to return home, she would like [facility] for SN and therapy. She states she does not need an aide. Pt was provided with list of HHC providers including quality and resource use data and consistent with the patient's preferred geographic region, medical needs, and insurance network. The pt's preferred provider is [facility]. Pt voices no further concerns/needs at this time. Advised pt to ask for CM if any further questions/concerns/needs arise. Voices understanding. PLAN: TBD. Pt prefers to return home w/HHC (SN, PT/OT) and [facility]. Follow for any Home O2 needs if is terrance to return home. Pt also states may want a walker or rollator, but she is not sure yet. PT/OT evals pending. Dillon ANDREW RN CM
--- NOTE | 2021-05-22 14:53 | CHAPLAIN ---
Type of Pastoral Visit _x__ Initial Visit ___ Follow-up Visit ___ On-call Visit ___ General Patient Visit ___ Spiritual Assessment ___ Family Conference ___ Bereavement ___ Rapid Response ___ Code Blue ___ Other (describe below) Pastoral Care Referral From _x__ Patient ___ Family ___ Nurse ___ Physician ___ Manager Cath Lab ___ Offset Duplicating Machine Operator ___ Other (describe below) Sacrament/Intervention _x__ Active listening ___ Anointing ___ Episcopal ___ Bereavement ___ Communion ___ Christina exploration ___ ___ Life review _x__ Prayer ___ Reconciliation ___ Sacrament of Sick ___ Supportive presence ___ Wedding ___ Other (describe below) Pastoral Comments
--- NOTE | 2021-05-22 14:55 | FLU_PTH ---
PATIENT: VANESA SMITH LOC: [facility]#:[id number] AGE/SX: 86/F ROOM: [facility] RE05/21/[address]: Dr. Shilo Musa DO : 1935 BED: 1 DIS: 05/23/2021 SPEC #: [id number] RECD: 05/22/21 15:04 STATUS: JOSE ALEJANDRO REQ #: [id number] ANA: 05/22/21 14:[address]: Becky Roy DEPT: CYTOLOGY RECD BY: Randi Diaz ENTERED: 05/23/21 10:44 SP TYPE: Fluid OTHR DR: MD Dr. Toya Serrano DO Dr. Mark Tereletsky, DO Tissues: Pleural fluid, NOS Procedures: Special Stain Group II Surgery Specimen Level IV Cytospin Fluid Comments: @ Ordering doctor for SSII edited from to DR.AWHITE Calloway by SAGAR at 05/23/21 1519 @ Ordering doctor for SUIV edited from to DR.AWHITE Calloway by SAGAR at 05/23/21 1519 @ Ordering doctor for CYSPIN edited from to DR.AWHITE Calloway by SAGAR at 05/23/21 [id number] @ Submitting doctor edited from to DR.AWHITE Calloway by SAGAR at 05/23/21 1519 HEADER OPERATION: Right thoracentesis PRE-OP DIAGNOSIS: Pleural effusion TISSUE SUBMITTED: Thoracentesis fluid for cytology DIAGNOSIS CYTOLOGY Thoracentesis fluid for cytology (cytospin and cell block): Negative for malignant cells. See comment. CASSIUS:shanda 05/26/2021 COMMENT Clinical correlation and appropriate follow up are necessary. CYTOLOGY STUDY Slides are reviewed. CYTOLOGY GROSS Received is 90 ml of yellow cloudy fluid labeled with the patient's name and and designated per the requisition as thoracentesis. Submitted for cytology preparation including cell block. / shanda 05/23/2021 TC:5 CPT: 90690, 63605
[2021-05-22] MEDS: Lidocaine 2% (20 ml mdv) 20 ML Vial INFILT (15:00)
[2021-05-22 15:06] LABS: Cytology, Body Fluid / CSF SEE PATHOLOGY REPORT
[2021-05-22 15:29] LABS: Body Fluid Mononuclear WBC # 0.489 10^3/uL; Body Fluid Mononuclear WBC % 97.6 %; Body Fluid Polynuclear WBC # 0.012 10^3/uL; Body Fluid Polynuclear WBC % 2.4 %; Body Fluid Total Cells Counted 0.758 10^3/ul; White Blood Count/Body Fluid 0.501 10^3/uL
[2021-05-22 16:31] LABS: Bedside Glucose 172 mg/dL (70-110)
[2021-05-22 18:23] LABS: Lymphocytes 32 %; Macrophages 40 %; Mesothelial Cells 10 %; Monocytes 1 %; Neutrophil (Segs) 17 %
[2021-05-22 18:26] LABS: Appearance/Body Fluid CLOUDY; Auto B Fluid Analyzer BKGD Ct COUNTS W/IN LIMITS (W/IN LIMITS); Color/Body Fluid YELLOW; Source- Body Fluid THORACENTESIS
[2021-05-22 18:27] LABS: Red Cell Count/Body Fluid 436 /mm3
[2021-05-22 18:28] LABS: Body Fluid QC Type(s) BF1Q
--- NOTE | 2021-05-22 19:20 | PN.HOSP_ITS ---
Subjective Subjective Patient was seen and examined today, I briefly talked with the patient and her son who was in the room at the time my examination. Patient was recently diagnosed with cirrhosis and ascites, she underwent paracentesis earlier in the month. Patient was taken down for a right thoracentesis today and I requested that an abdominal ultrasound be obtained to rule out recurrence of ascites- radiology states that the patient had minimal ascites and she then underwent a right thoracentesis which yielded a little over a liter of fluid. 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 Objective Data Objective Data Vital Signs: Vital Signs Temp Pulse Resp BP Pulse Ox 98.2 F 85 20 H 130/68 H 95 05/22/21 16:30 05/22/21 16:30 05/22/21 16:30 05/22/21 16:30 05/22/21 16:30 Oxygen Flow Rate (L/min) [4] 3 Oxygen Flow Rate (L/min) [3] 3 Oxygen Flow Rate (L/min) [2] 3 Oxygen Flow Rate (L/min) [1 ( 3 Initial Baseline)] Oxygen Flow Rate (L/min) 3 Oxygen Delivery Method [4] Nasal Cannula Oxygen Delivery Method [3] Nasal Cannula Oxygen Delivery Method [2] Room Air Oxygen Delivery Method [1 ( Nasal Cannula Initial Baseline)] Oxygen Delivery Method Nasal Cannula Weight: 70.6 kg Body Mass Index (BMI) 28.4 Intake & Output: Intake and Output for Last 24 Hours 05/20/21 05/21/21 05/22/21 23:59 23:59 23:59 Intake Total 120 / 120 860 / 860 Output Total 1250 / 1250 Balance 120 / 120 -390 / -390 Lab / Micro Data Result Diagrams: 05/22/21 06:00 05/22/21 06:00 Labs: Laboratory Results - last 24 hr 05/21/21 00:10: Troponin I High Sens 41 05/21/21 18:20: B-Natriuretic Peptide 162.4 H 05/21/21 18:20: Magnesium 1.4 L, Lactate Dehydrogenase 237, Total Protein 5.7 L, Globulin 3.1, Albumin/Globulin Ratio 0.8 L 05/21/21 18:20: Procalcitonin 0.09 05/21/21 21:42: Troponin I High Sens 36 05/21/21 22:05: POC Glucose 168 H 05/22/21 06:00: WBC 4.5, RBC 3.65 L, Hgb 11.1 L, Hct 34.3 L, MCV 94.0, MCH 30.4, MCHC 32.4, RDW Std Deviation 51.8 H, RDW Coeff of Laurita 14.8 H, Plt Count 75 L, MPV 11.4, Immature Gran % (Auto) 0.700, Neut % (Auto) 85.2 H, Lymph % (Auto) 9.8 L, Charles % (Auto) 4.3, Eos % (Auto) 0.0, Baso % (Auto) 0.0, Absolute Neuts (auto) 3.8, Absolute Lymphs (auto) 0.44 L, Nucleated RBC % 0, Differential Comment COMMENT, Platelet Estimate MOD 05/22/21 06:00: PT 17.1 H, INR 1.5, APTT 39.1 H 05/22/21 06:00: Sodium 141, Potassium 3.8, Chloride 105, Carbon Dioxide 25.0, Anion Gap 11, BUN 23 H, Creatinine 1.37 H, Estim Creat Clear Calc 23.74, Est GFR (MDRD) Af Amer 47 L, Est GFR (MDRD) Non-Af 39 L, BUN/Creatinine Ratio 16.8, Glucose 182 H, Calcium 9.1, Total Bilirubin 2.20 H, AST 38 H, ALT 25, Alkaline Phosphatase 123 H, Total Protein 6.3 L, Albumin 2.8 L, Globulin 3.5, Album in/Globulin Ratio 0.8 L, TSH 2.08 05/22/21 06:37: POC Glucose 195 H 05/22/21 10:52: POC Glucose 152 H 05/22/21 14:50: Fluid Source THORACENTESIS, Fluid Color YELLOW, Fluid Appearance CLOUDY, Fluid WBC 0.501, Fluid RBC 436, Fluid Tot Cell Count 0.758 H, Fld Polynuclear WBCs # 0.012, Fld Polynuclear WBCs % 2.4, Fluid Mononuclear WBCs 0.489, Fld Mononuclear WBCs % 97.6, Fluid Neutrophils 17, Fluid Lymphocytes 32, Fluid Monocytes 1, Fluid Macrophages 40, Fld Mesothelial Cells 10, Fl Pathologist Comment May follow, Fluid Comment 2 SEE COMMENT 05/22/21 16:20: POC Glucose 172 H Micro: Microbiology 05/21/21 23:05 Mucosa - Nasopharyngeal Respiratory Panel (PCR) - Final Rhinovirus 05/21/21 22:27 Urine, Random Streptococcus pneumoniae Antigen (M - Final 05/21/21 22:27 Urine, Random Legionella Antigen - Final Radiography Diagnostic Testing: Radiology Impression Echocardiogram 05/21/21 21:02 Interpretation Summary Normal LV size. Left ventricular systolic function is normal. The estimated ejection fraction is 60 %. There is mild to moderate mitral annular calcification. Mild focal aortic valve calcification. Apical wall motion abnormality may reflect pacemaker activation. Ordering Physician: Becky Roy Referring Physician: YONY ESCAMILLA Performed By: Julissa De Jesus, RDCS, RVT Thoracentesis Ultrasound 05/22/21 21:02 IMPRESSION: Ultrasound-guided right thoracentesis. Electronically Signed: Rito uPente MD at 15:16 EST , Service support , Physical Exam Const alert, oriented x3 and no apparent distress Constitutional Narrative: Patient appears her stated age General Appearance: cooperative, well kempt and well developed Orientation / Consciousness: awake, oriented to person, oriented to place and oriented to time HEENT normocephalic, head/scalp atraumatic and moist oral mucous membranes Head and Scalp: normocephalic Eyes PERRL, EOMs intact bilaterally and conjunctivae normal Neck nuchal rigidity, supple, no JVD, thyroid normal and no carotid bruits General: trachea midline Resp normal respiratory effort, no retractions and no use of accessory muscles Resp Narrative: There were decreased lung sounds noted over the patient's right lung field Auscultation: Negative for rales, rhonchi or wheezes Cardio regular rate, regular rhythm, S1 normal heart sound, S2 normal heart sound, no murmurs, no rub and no gallops GI normal to inspection, nondistended, normoactive bowel sounds, soft to palpation, non-tender and non-distended Extremity no clubbing, cyanosis or edema Skin no rashes or lesions noted General Skin Exam: no breakdown Neuro oriented x3, CN's II-XII intact bilaterally, no focal motor deficits and no sensory deficits noted Sensorium / Orientation: awake and alert Speech: speech normal Psych thought process normal and affect normal Assessment & Plan Assessment/Plan (1) Acute respiratory failure with hypoxia: PLAN: 1. Acute hypoxic respiratory failure-patient is currently on 3 L via nasal cannula at the time of my examination today, her pulse ox will be monitored. #2 large right pleural effusion-I suspect this may be secondary to her previous severe ascites, examination of the pleural fluid is pending at this time after her thoracentesis. 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 I will stop her potassium, patient is on an ARB, her potassium will need to be monitored. #4 essential hypertension #5 chronic obstructive pulmonary disease #6 nonischemic cardiomyopathy-patient's echocardiogram today showed a normal EF #7 mild pulmonary hypertension #8 atherosclerotic heart disease Charges/Coding Visit Charges Inpatient E&M: 77378 Subs Hosp L2
--- NOTE | 2021-05-22 21:02 | US_ITS ---
PROCEDURE: ULTRASOUND GUIDED THORACENTESIS. DATE: 05/22/2021. INDICATION: Female, 86 years old. Right pleural effusion. PHYSICIAN: Rito Puente M.D. PROCEDURE: The risks, benefits, and alternatives to the procedure were explained to the patient. The specific risks of bleeding, infection, and pneumothorax requiring chest tube insertion were discussed and accepted. Written informed consent was obtained. Ultrasonographic evaluation of the right lower pleural space was carried out. An adequate pocket was identified. The patient was placed in the sitting, upright position. The overlying skin was prepped and draped in sterile fashion. 1% lidocaine was administered subcutaneously for local anesthesia. Under ultrasound guidance, a 5French thoracentesis needle/catheter system was advanced into the right posterior lower pleural fluid collection. Approximately 1050 mL of jackie-colored fluid was drained. The catheter was removed, and a sterile dressing was applied. A specimen was collected and sent to the laboratory for analysis, as requested by the referring clinician. The patient tolerated the procedure well. A chest x-ray was ordered. US/Thoracentesis W US IMPRESSION: Ultrasound-guided right thoracentesis. Electronically Signed: Rito Puente MD at 15:16 EST , Service support ,
[2021-05-22] MEDS: Spironolactone 25 MG Tablet PO (21:04)
[2021-05-22 21:31] LABS: Glucose, Body Fluid 209 mg/dL (40-70); LDH,Body Fluid 77 Units/l (Not Establ.); Protein, Body Fluid 1.5 g/dL (Not Establ.)
[2021-05-22 22:30] LABS: Bedside Glucose 167 mg/dL (70-110)
[2021-05-23] VITALS (11 sets, daily range): BP systolic 117–136; BP diastolic 60–63; PULSE 80–106; RESP 14–18; TEMP 36.4–36.6; O2SAT 83–97
[2021-05-23] MEDS: Insulin Lispro 100 UNIT/ML INSULN.PEN SC ×2 (06:21→12:14)
[2021-05-23 07:01] LABS: Bedside Glucose 172 mg/dL (70-110)
[2021-05-23] MEDS: Ipratropium/Albuterol Sulfate 3 ML AMPUL.NEB INHALATION ×2 (07:03→13:12)
[2021-05-23 07:56] LABS: ALB/GLOB Ratio 0.8 RATIO (0.9-2.4); AST(SGOT) 52 U/L (15-37); Alanine Aminotransfer ALT/SGPT 26 U/L (13-56); Albumin, Serum 2.7 g/dL (3.2-5.0); Alkaline Phosphatase 120 U/L (45-117); Anion Gap 5 (5-15); BUN 34 mg/dL (7-18); BUN/Creat Ratio 22.4 RATIO (10-20); Chloride 107 mmol/L (98-107); Creatinine, Serum 1.52 mg/dL (0.55-1.02); EST Glomerular Filtration Rate 35 mL/min (>60); Est Glom Filt Rate - Afr Amer 42 mL/min (>60); Globulin 3.3 g/dL (2.2-4.2); Glucose 170 mg/dL (74-106); Potassium 4.2 mmol/L (3.5-5.1); Sodium Level 141 mmol/L (136-145)
[2021-05-23] MEDS: Spironolactone 25 MG Tablet PO (10:41)
[2021-05-23] MEDS: Losartan Potassium 100 MG Tablet PO (10:46)
[2021-05-23] MEDS: Magnesium Chloride 64 MG Delay Rel.Tablet 128 MG PO (10:46)
[2021-05-23] MEDS: Cholecalciferol (VIT D3) 25 MCG TABLET (1,000 UNITS) 50 MCG PO (10:47)
[2021-05-23] MEDS: 0.9% Saline Lock 10 ML Syringe IV (10:47)
[2021-05-23 12:05] LABS: Bedside Glucose 183 mg/dL (70-110)
--- NOTE | 2021-05-23 12:40 | PCM.DC ---
Discharge Instructions Diet Discharge Diet: No restrictions Activity Discharge Activity: Return to Normal Activity Weight Bearing Status: Full weight bearing Follow Up Care Test Results: Test results from this visit will be discussed in further detail at your follow-up appointment, if applicable. Discharge Plan Admission Admit Date/Time: 05/21/21 20:44 Primary Reason for Your Visit: right pleural effusion, hypoxia Attending Provider: Shilo Musa Primary Care Provider: Toya Mark Instructions Additional Instructions / Restrictions: Wear oxygen at 2 L/min via nasal cannula on exertion You will need your family practitioner to repeat your chest x-ray next week, you will need a BMP lab test performed next week Discharge Orders/Prescriptions Prescriptions: New spironolactone 25 mg Tablet 25 mg PO BID Qty: 60 RF: 0 Continued cholecalciferol (vitamin D3) 2,000 unit tablet 2,000 unit PO DAILY RF: 0 nitroglycerin [Nitrostat] 0.4 mg tablet, sublingual 0.4 mg SUBLINGUAL Q5-15M PRN (Reason: Cardiac/Chest Pain) RF: 0 metformin 500 mg tablet extended release 24 hr 500 mg PO DAILY RF: 0 pantoprazole 40 mg tablet,delayed release (DR/EC) 40 mg PO DAILY PRN PRN (Reason: GERD) RF: 0 magnesium oxide 400 mg (241.3 mg magnesium) tablet 400 mg PO DAILY RF: 0 furosemide 40 mg tablet 40 mg PO DAILY RF: 0 aspirin [Adult Aspirin Regimen] 81 mg tablet,delayed release (DR/EC) 81 mg PO DAILY RF: 0 Changed losartan 100 mg tablet 50 mg PO DAILY Qty: 0 RF: 0 Discontinued potassium chloride 10 mEq tablet extended release 10 meq PO DAILY RF: 0 Referrals / Follow Up: Toya Mark DO [Primary Care Provider] - See Referral Note (See her within 1 week for follow-up) FriendJohn DO [STAFF PHYSICIAN] - See Referral Note (As scheduled) Disposition Disposition (needs filled in before D/C Order can be placed): Home, Self Care
[2021-05-23] MEDS: Furosemide 40 MG Tablet PO (12:51)
--- NOTE | 2021-05-23 13:34 | CASEMGMT ---
Pt states no concerns with going home at time of discharge but would like HHC set up and had stated preference for [facility] previously. Order placed for SN, PT/OT, aide and message left with Mary Carmen at [facility] in regards to same. Pt states no preference for DME company for oxygen and do to [employer] oxygen equipment shortage, Green sheet left on chart for [employer]. Pt is requesting WW be delivered to room for discharge and this was sent to [facility] as they do have in stock. CM to follow for any further discharge planning/needs. Delvin ROONEY CM
--- NOTE | 2021-05-23 13:59 | CASEMGMT ---
Pt states no concerns with going home at time of discharge but would like [facility] set up and had stated preference for [facility] previously. Order placed for SN, PT/OT, aide and message left with Mary Carmen at [facility] in regards to same. Pt states no preference for [employer] company for oxygen and referral faxed to [facility] for home oxygen, 2L w/ exertion and pt is requesting WW be delivered to room for discharge and this was sent to [facility] also as they do have in stock. Per Mary Carmen at [facility], they are able to accept pt and can do SOC 05/27/21. CM to follow for any further discharge planning/needs. SStanjum ROONEY CM
--- NOTE | 2021-05-23 14:01 | DS.PCM_ITS ---
Providers Date of Admission: 05/21/21 Date of Discharge: 05/23/21 Primary Care Physician: Dr. Toya Mark DO Reason For Visit: COPD/ASTHMA EXAC., CHF EXAC, R SIDED EFUSION Diagnosis Discharge Diagnosis (1) Acute respiratory failure with hypoxia: Status: Acute Code(s): J96.01 - Acute respiratory failure with hypoxia Plan: 1. 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 #4 essential hypertension #5 chronic obstructive pulmonary disease #6 nonischemic cardiomyopathy #7 mild pulmonary hypertension #8 atherosclerotic heart disease #9 chronic kidney disease stage IIIb Medications at Discharge Home Medications cholecalciferol (vitamin D3) 50 mcg (2,000 unit) tablet 2,000 unit PO DAILY 09/26/18 furosemide 40 mg tablet 40 mg PO DAILY 09/26/18 metformin 500 mg tablet,extended release 24 hr 500 mg PO DAILY tab 09/26/18 nitroglycerin 0.4 mg sublingual tablet 0.4 mg SUBLINGUAL Q5-15M PRN 09/26/18 magnesium oxide 400 mg (241.3 mg magnesium) tablet 400 mg PO DAILY 09/17/20 pantoprazole 40 mg tablet,delayed release 40 mg PO DAILY PRN PRN tab 09/17/20 aspirin [Adult Aspirin Regimen] 81 mg PO DAILY 05/21/21 losartan 50 mg PO DAILY #0 tab 05/23/21 spironolactone 25 mg PO BID #60 tab 05/23/21 Hospital Course Operations None Procedures Thoracentesis Summary of Care Provided Minutes Spent on Discharge: 31 Hospital Course: This 86-year-old white female came to the emergency room at [facility] with a chief complaint of shortness of breath x2 weeks. Patient was recently diagnosed with cirrhosis of the liver and had undergone a paracentesis earlier in May 2021. Work-up in the ER included chest x-ray which showed near total opacification of the right hemithorax representing a large effusion, patient had a Covid PCR test that was negative, patient's white blood cell count was normal, creatinine was slightly elevated at 1.33. Patient was admitted to PCU, she was placed on IV Lasix, she underwent a thoracentesis with removal of approximately 1000 cc of fluid. Before the fluid was removed, there was a scan done of her abdomen to rule out recurrent ascites- there was a little fluid noted on the scan and so a paracentesis was not neces derrek. On 05/23/2021, patient was seen and examined: On examination she appeared in good health and spirits, she does not appear to be in any distress. Vital signs as documented. Skin warm and dry and without overt rashes. Neck without JVD, thyroid appears normal, trachea is midline, neck is supple. Lungs clear, normal air movement was noted. Heart exam notable for regular rhythm, normal sounds and absence of murmurs, rubs or gallops. Abdomen unremarkable and without evidence of organomegaly, masses, or abdominal aortic enlargement, bowel sounds are present in all 4 quadrants, no abdominal tenderness was noted. Extremities nonedematous, no cyanosis was noted, no clubbing was noted. Neuro: Cranial nerves II through XII are grossly intact, no focal motor deficits were noted, sensation to light touch and pinprick is intact, motor exam 5/5 throughout. Psych: Patient is alert and oriented x3, she does not appear anxious or depressed, she does not appear agitated. Patient appears stable for discharge on 05/23/2021, her pulse ox at rest on room air was 90%, she required 2 L of oxygen on ambulation to maintain her pulse ox at 92%. She was expected to use her oxygen in the home and outside the home during activities. Weight / BMI Weight Weight: 70.9 kg Body Mass Index (BMI) 28.4 ABG / Lab / Microbiology Data Result Diagrams: 05/22/21 06:00 05/23/21 07:00 Laboratory: Laboratory Results - last 24 hr 05/21/21 14:50: Fluid Glucose 209 H, Fluid Total Protein 1.5, Fluid LDH 77 05/22/21 14:50: Fluid Source THORACENTESIS, Fluid Color YELLOW, Fluid Appearance CLOUDY, Fluid WBC 0.501, Fluid RBC 436, Fluid Tot Cell Count 0.758 H, Fld Polynuclear WBCs # 0.012, Fld Polynuclear WBCs % 2.4, Fluid Mononuclear WBCs 0.489, Fld Mononuclear WBCs % 97.6, Fluid Neutrophils 17, Fluid Lymphocytes 32, Fluid Monocytes 1, Fluid Macrophages 40, Fld Mesothelial Cells 10, Fl Pathologist Comment May follow, Fluid Comment 2 SEE COMMENT 05/22/21 16:20: POC Glucose 172 H 05/22/21 21:00: POC Glucose 167 H 05/23/21 06:18: POC Glucose 172 H 05/23/21 07:00: Sodium 141, Potassium 4.2, Chloride 107, Carbon Dioxide 29.0, Anion Gap 5, BUN 34 H, Creatinine 1.52 H, Estim Creat Clear Calc 21.40, Est GFR (MDRD) Af Amer 42 L, Est GFR (MDRD) Non-Af 35 L, BUN/Creatinine Ratio 22.4 H, Glucose 170 H, Calcium 9.0, Total Bilirubin 1.10 H, AST 52 H, ALT 26, Alkaline Phosphatase 120 H, Total Protein 6.0 L, Albumin 2.7 L, Globulin 3.3, Albumin/Globulin Ratio 0.8 L 05/23/21 11:56: POC Glucose 183 H Microbiology: Microbiology 05/22/21 14:50 Fluid - Thoracentesis Fluid Gram Stain - Final 05/22/21 14:50 Fluid - Thoracentesis Fluid Body Fluid Culture - Preliminary No growth-Final to follow 05/21/21 23:05 Mucosa - Nasopharyngeal Respiratory Panel (PCR) - Final Rhinovirus 05/21/21 22:27 Urine, Random Streptococcus pneumoniae Antigen (M - Final 05/21/21 22:27 Urine, Random Legionella Antigen - Final Radiography Diagnostic Testing: Radiology Impression Chest X-Ray 05/22/21 09:20 IMPRESSION: Status post right thoracentesis. There is no evidence of pneumothorax. Persistent pleural-parenchymal changes at the right lung base. Electronically Signed: Rito Puente MD at 15:17 EST , Service support , Thoracentesis Ultrasound 05/22/21 21:02 IMPRESSION: Ultrasound-guided right thoracentesis. Electronically Signed: Rito Puente MD at 15:16 EST , Service support , D/C Instructions Discharge Diet: No restrictions Weight Bearing Status: Full weight bearing Meaningful Use Info Meaningful Use Diagnoses (Choose all that apply): None applicable Discharge Plan Admission Admit Date/Time: 05/21/21 20:44 Primary Reason for Your Visit: right pleural effusion, hypoxia Attending Provider: Shilo Musa Primary Care Provider: Toya Mark Instructions Additional Instructions / Restrictions: Patient Problems: Altered Health Status related to Hospitalization Patient Goals: *Optimal Level of Health *Keep Appointments *Medication Compliance *Remain SafeWear oxygen at 2 L/min via nasal cannula on exertion You will need your family practitioner to repeat your chest x-ray next week, you will need a BMP lab test performed next week Discharge Orders/Prescriptions Prescriptions: New spironolactone 25 mg Tablet 25 mg PO BID Qty: 60 RF: 0 Continued cholecalciferol (vitamin D3) 2,000 unit tablet 2,000 unit PO DAILY RF: 0 nitroglycerin [Nitrostat] 0.4 mg tablet, sublingual 0.4 mg SUBLINGUAL Q5-15M PRN (Reason: Cardiac/Chest Pain) RF: 0 metformin 500 mg tablet extended release 24 hr 500 mg PO DAILY RF: 0 pantoprazole 40 mg tablet,delayed release (DR/EC) 40 mg PO DAILY PRN PRN (Reason: GERD) RF: 0 magnesium oxide 400 mg (241.3 mg magnesium) tablet 400 mg PO DAILY RF: 0 furosemide 40 mg tablet 40 mg PO DAILY RF: 0 aspirin [Adult Aspirin Regimen] 81 mg tablet,delayed release (DR/EC) 81 mg PO DAILY RF: 0 Changed losartan 100 mg tablet 50 mg PO DAILY Qty: 0 RF: 0 Discontinued potassium chloride 10 mEq tablet extended release 10 meq PO DAILY RF: 0 Referrals / Follow Up: Toya Mark DO [Primary Care Provider] - See Referral Note (See her within 1 week for follow-up) Friend,DO John [STAFF PHYSICIAN] - See Referral Note (As scheduled) Disposition Disposition (needs filled in before D/C Order can be placed): Home, Self Care Charges/Coding Visit Charges Inpatient E&M: 23823 Disch Hosp
[2021-05-23 14:21] LABS: Pathologist Comment/Body Fluid Reviewed
--- NOTE | 2021-05-23 15:49 | PHA.DC.MC ---
Pharmacy Service has performed discharge medication reconciliation and counseling for this patient. 1. SPIRONOLACTONE 25MG PO BID The patient's discharge medication list was reviewed for discrepancies and discrepancies were resolved. Home Medications cholecalciferol (vitamin D3) 50 mcg (2,000 unit) tablet 2,000 unit PO DAILY 09/26/18 furosemide 40 mg tablet 40 mg PO DAILY 09/26/18 metformin 500 mg tablet,extended release 24 hr 500 mg PO DAILY tab 09/26/18 nitroglycerin 0.4 mg sublingual tablet 0.4 mg SUBLINGUAL Q5-15M PRN 09/26/18 magnesium oxide 400 mg (241.3 mg magnesium) tablet 400 mg PO DAILY 09/17/20 pantoprazole 40 mg tablet,delayed release 40 mg PO DAILY PRN PRN tab 09/17/20 aspirin [Adult Aspirin Regimen] 81 mg PO DAILY 05/21/21 losartan 50 mg PO DAILY #0 tab 05/23/21 spironolactone 25 mg PO BID #60 tab 05/23/21 The patient was counseled on the following discharge medications and changes in medications for homegoing were reviewed. The Reason for Use, instructions for use, and potential side effects were reviewed for all new medications. The patient's questions regarding all of their medications were answered. The patient was able to verbally demonstrate an understanding of their discharge medications.
[2021-05-27 16:01] LABS: pH, Body Fluid 11254 7.6 (Not Estab.)
== END 2021-05-23 16:26 | disposition home or self-care (01) | DRG 190 ==
LOC: ED 20:11 → PCU 20:53
PROVIDERS: Admitting Provider Family Medicine; Emergency Provider Emergency Medicine; PCP Internal Medicine; Visit Provider Internal Medicine
DX: J44.1 Chronic obstructive pulmonary disease with (acute) exacerbation (principal); J96.01 Acute respiratory failure with hypoxia; J90 Pleural effusion, not elsewhere classified; I42.8 Other cardiomyopathies; R18.8 Other ascites; I27.20 Pulmonary hypertension, unspecified; I25.10 Atherosclerotic heart disease of native coronary artery without angina pectoris; I12.9 Hypertensive chronic kidney disease with stage 1 through stage 4 chronic kidney disease, or unspecified chronic kidney disease; E11.22 Type 2 diabetes mellitus with diabetic chronic kidney disease; N18.32 Chronic kidney disease, stage 3b; I49.5 Sick sinus syndrome; I48.0 Paroxysmal atrial fibrillation; K74.60 Unspecified cirrhosis of liver; K75.81 Nonalcoholic steatohepatitis (NASH); E78.5 Hyperlipidemia, unspecified; D69.6 Thrombocytopenia, unspecified; F32.A Depression, unspecified; F41.9 Anxiety disorder, unspecified; K21.9 Gastro-esophageal reflux disease without esophagitis; I25.2 Old myocardial infarction; Z66 Do not resuscitate; Z95.0 Presence of cardiac pacemaker; Z95.1 Presence of aortocoronary bypass graft; Z95.5 Presence of coronary angioplasty implant and graft; Z79.82 Long term (current) use of aspirin; Z79.84 Long term (current) use of oral hypoglycemic drugs; Z99.81 Dependence on supplemental oxygen; Z79.899 Other long term (current) drug therapy; Z87.19 Personal history of other diseases of the digestive system
CPT/HCPCS: 32555; 36415; 71045; 71046; 80048; 80053; 82945; 82962; 83615; 83735; 83880; 83986; 84145; 84156; 84157; 84443; 84484; 85025; 85610; 85730; 87070; 87075; 87205; 87449; 87633; 87635; 88108; 88305; 88313; 89050; 93005; 93306; 94640; 97162; 97166; 97802; 99285; U0005; A4216; J1940; U0003

== ENCOUNTER → 2021-05-27 16:50 | Outpatient (CLI) | payer MEDICARE, SELFPAY | PROVIDERS: PCP Internal Medicine | DX: J90 Pleural effusion, not elsewhere classified (principal) ==

== ENCOUNTER → 2021-05-27 16:55 | Outpatient (CLI) | payer MEDICARE, SELFPAY ==
--- NOTE | 2021-05-27 17:30 | RAD_ITS ---
STUDY: X-RAY CHEST REASON FOR EXAM: Female, 86 years old. Follow-up of pleural effusion. TECHNIQUE: Frontal, lateral and bilateral decubitus views were obtained. COMPARISON: 05/22/2021. FINDINGS: Increase in right pleural effusion since the prior study. Compression atelectasis of the right middle and lower lobes which has slightly increased. No left effusion. Cardiomegaly with dual lead cardiac pacer, sternotomy wires and aortic tortuosity, unchanged. Diffuse moderate thoracic spondylosis unchanged. Normal visualized ribs, clavicles, and shoulders. There is no demonstrated abnormality of the visualized soft tissue structures of the upper abdomen. RAD/Chest Min 4 Views IMPRESSION: Stable cardiomegaly with increased right pleural effusion which layers. No complicating features. Electronically Signed: Manjit Durán MD at 11:56 EST , Service support ,
== END ==
LOC: RAD 16:57
PROVIDERS: PCP Internal Medicine; Referring Provider Nurse Practitioner; Visit Provider Nurse Practitioner
DX: J90 Pleural effusion, not elsewhere classified (principal); I51.7 Cardiomegaly
CPT/HCPCS: 71048

== ENCOUNTER 2021-05-31 18:19 | Outpatient (RCR) | payer MEDICARE, SELFPAY ==
[2021-05-31 18:43] LABS: Color, Urine Yellow (Yellow); Glucose, Dipstick Normal (Normal); Ketone-Dipstick Negative (Negative); Leukocyte Esterase-Dipstick 25 /ul (Negative); Nitrite-Dipstick Positive (Negative); Occult Blood-Urine Negative /ul (Negative); Protein-Dipstick Negative (Negative); Urine Bilirubin Dipstick Negative (Negative); Urine Clarity Sl. Cloudy (Clear); Urine Urobilinogen Normal (Normal)
== END 2021-06-03 23:59 ==
LOC: HHLAB 18:19
PROVIDERS: PCP Internal Medicine; Visit Provider Internal Medicine
DX: N39.0 Urinary tract infection, site not specified (principal)
CPT/HCPCS: 81002; 87077; 87086; 87088; 87186

== ENCOUNTER 2021-06-04 15:45 | Inpatient (IN) | payer MEDICARE, SELFPAY ==
[2021-06-04] VITALS (14 sets, daily range): BP systolic 124–146; BP diastolic 57–116; PULSE 73–100; RESP 21–29; TEMP 35.7–36.3; O2SAT 93–98; BMI 29.4; BMI 27.6
--- NOTE | 2021-06-04 16:09 | RAD_ITS ---
STUDY: X-RAY CHEST REASON FOR EXAM: Female, 86 years old. Dyspnea. TECHNIQUE: Single AP portable view of the chest. COMPARISON: 05/27/2021. FINDINGS: Enlarging right pleural effusion with only minimal aeration of the medial right lung apex. The left lung is clear. There is mediastinal shift to left. Again seen is evidence of median sternotomy. Stable cardiac pacemaker. Normal superior mediastinum and right hilum. Normal left visualized pulmonary arteries. There is atherosclerotic calcification of the aortic arch with tortuosity. There are diffuse degenerative changes of the visualized thoracic spine. There is degenerative osteoarthritis of the bilateral shoulders. There is no demonstrated abnormality of the visualized soft tissue structures of the upper abdomen. RAD/Chest 1 View (Portable) IMPRESSION: Enlarging right pleural effusion with mild mediastinal shift to the left. The remainder of the findings appear essentially unchanged. Electronically Signed: Stevenson Douglass DO at 16:46 EST Tel [phone], Service support ,
--- NOTE | 2021-06-04 16:09 | EKG12_ITS ---
Test Reason : SOB Blood Pressure : / mmHG Vent. Rate : 067 BPM Atrial Rate : 014 BPM P-R Int : 248 ms QRS Dur : 180 ms QT Int : 502 ms P-R-T Axes : 000 -49 104 degrees QTc Int : 530 ms AV dual-paced rhythm with prolonged AV conduction Abnormal ECG Confirmed by SERGO STEINBERG, TARA ([id number]), book or script editor JONNIE LÓPEZ ([id number]) on 06/09/2021 9:37:44 AM Referred By: WINSOME/KOLBY Confirmed By:FELIPA TROTTER MD
--- NOTE | 2021-06-04 16:11 | ED.VIS.DYS ---
HPI History of Present Illness Chief Complaint: Shortness of Breath Narrative Narrative: 86-year-old female presenting with shortness of breath. She states she feels like she is wheezing. She has a history of Allan and a pleural effusion blood. As well as ascites. Patient recently admitted to [facility] for treatment of this. She was discharged home on 2 L of oxygen via nasal cannula. Patient had diarrhea and she states he has not. Improved and actually has required more oxygen. She arrives to the ER on CPAP. She has been weaned off of this and is now on oxygen via nasal cannula patient denies any sick exposure since she has been home. She states that her pleural effusion on her last visit was the first episode had this. [facility] Medical History Acute respiratory failure with hypoxia Ambulates with cane Anxiety Arthritis Ascites Atherosclerotic heart disease of [place] coronary artery without angina pectoris Back pain Cancer Cardiology follow-up encounter CHF (congestive heart failure) Cirrhosis of liver COPD (chronic obstructive pulmonary disease) Diabetes Dietary restriction Esophageal varices Essential hypertension Gastric reflux GERD (gastroesophageal reflux disease) History of atrial fibrillation History of diverticulitis History of echocardiogram History of edema History of GI bleed History of heart attack History of stress test History of thyroid nodule Hx of sigmoidoscopy Hyperlipidemia Hypertension Injury of head and neck Left bundle branch block Leg cramps Non-ischemic cardiomyopathy Non-smoker NSTEMI (non-ST elevated myocardial infarction) (11/27/11) Obesity Paroxysmal atrial fibrillation Pleural effusion Rectal bleeding Restless legs Shortness of breath on exertion Tachy-maegan syndrome TIA (transient ischemic attack) TIA (transient ischemic attack) Type 2 diabetes mellitus without complication Vertigo Wears dentures Wears glasses Home Medications cholecalciferol (vitamin D3) 50 mcg (2,000 unit) tablet 2,000 unit PO DAILY 09/26/18 [History Last Taken 05/21/21] furosemide 40 mg tablet 40 mg PO DAILY 09/26/18 [History Last Taken 05/21/21] metformin 500 mg tablet,extended release 24 hr 500 mg PO DAILY tab 09/26/18 [History Last Taken 05/11/21] nitroglycerin 0.4 mg sublingual tablet 0.4 mg SUBLINGUAL Q5-15M PRN 09/26/18 [History Last Taken Unknown] magnesium oxide 400 mg (241.3 mg magnesium) tablet 400 mg PO DAILY 09/17/20 [History Last Taken 05/21/21] pantoprazole 40 mg tablet,delayed release 40 mg PO DAILY PRN PRN tab 09/17/20 [History Last Taken 05/19/21] aspirin [Adult Aspirin Regimen] 81 mg PO DAILY 05/21/21 [History Last Taken Unknown] losartan 50 mg PO DAILY #0 tab 05/23/21 [Rx Last Taken 05/21/21] spironolactone 25 mg PO BID #60 tab 05/23/21 [Rx Last Taken Unknown] Allergy/AdvReac Type Severity Reaction Status Date / Time amoxicillin Allergy Severe Unknown Verified 06/04/21 15:55 levofloxacin [From Levaquin] Allergy Severe Unknown Verified 06/04/21 15:55 atorvastatin [From Lipitor] AdvReac Severe myalgias Verified 06/04/21 15:55 rosuvastatin [From Crestor] AdvReac Severe myalgias Verified 06/04/21 15:55 carvedilol [From Coreg] AdvReac upset Verified 06/04/21 15:55 stomach Family History Mother CAD (coronary artery disease) Father CAD (coronary artery disease) Sister Myocardial infarction Surgical History H/O coronary artery bypass surgery (03/11/12) History of coronary artery stent placement (11/28/11) History of left heart catheterization (~03/08/12) 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) History of sigmoidoscopy (~03/15/08) Hx of colonoscopy (04/2021) Hx of left cataract extraction Hx of right cataract extraction Social History Smoking Status: Never smoker second hand exposure: No alcohol intake: never substance use type: does not use caffeine: Yes Type: coffee Number of servings: 1 ROS ROS ED Constitutional Constitutional ED: Denies chills or fever(s) Eyes Eyes: Denies blurry vision or diplopia ENT ENT ED: Denies rhinorrhea or sore throat Cardiovascular Cardiovascular: Reports chest pain Respiratory/Chest Respiratory/Chest: Reports cough and dyspnea Gastrointestinal Gastrointestinal: Denies abdominal pain, nausea or vomiting Genitourinary Genitourinary ED: Denies dysuria or hematuria Musculoskeletal Musculoskeletal: Denies myalgias Neurologic Neurologic: Denies headache(s) or paresthesias EXAM Physical Exam Const Vital Signs: 06/04/21 15:46 06/04/21 15:56 06/04/21 16:16 Temperature 96.3 F L Temperature Source Temporal Pulse Rate 77 Respiratory Rate 29 H Respiratory Effort Labored Accessory Muscle Use Blood Pressure 141/57 H Blood Pressure Mean 85 Pulse Ox 96 96 Oxygen Delivery Method Nasal Cannula Nasal Cannula Nasal Cannula Oxygen Flow Rate (L/min) 6 6 6 Fraction of Inspired Oxygen (FIO2) 06/04/21 16:30 06/04/21 18:03 06/04/21 19:35 Temperature Temperature Source Pulse Rate 73 73 89 Respiratory Rate 26 H 23 H 23 H Respiratory Effort Blood Pressure 124/58 H 141/98 H Blood Pressure Mean 80 112 Pulse Ox 98 95 Oxygen Delivery Method Nasal Cannula Nasal Cannula Oxygen Flow Rate (L/min) 6 4 Fraction of Inspired Oxygen (FIO2) 06/04/21 19:49 06/04/21 19:51 06/04/21 20:04 Temperature Temperature Source Pulse Rate 100 Respiratory Rate 25 H Respiratory Effort Blood Pressure Blood Pressure Mean Pulse Ox 96 Oxygen Delivery Method Nasal Cannula Nasal Cannula Oxygen Flow Rate (L/min) 6 4 Fraction of Inspired Oxygen (FIO2) 96 06/04/21 21:07 Temperature Temperature Source Pulse Rate 91 Respiratory Rate Respiratory Effort Blood Pressure 137/68 H Blood Pressure Mean 91 Pulse Ox 96 Oxygen Delivery Method Nasal Cannula Oxygen Flow Rate (L/min) 6 Fraction of Inspired Oxygen (FIO2) Positive well nourished Constitutional Narrative: Increased work of breathing General Appearance ED: pallor and other HEENT Reports dry mucous membranes atraumatic Mouth ED: Yes dry mucous membranes Mouth: dry mucous membranes Eyes PERRL and EOMs intact bilaterally Resp Resp Narrative: Tachypneic. Some accessory muscle use noted. Patient able to speak in short sentences. Auscultation: wheezes expiratory wheezes Cardio regular rate and regular rhythm GI non-tender GI Narrative: Reducible umbilical hernia. Ecchymosis noted to the flank on the left. Palpation: soft Neuro oriented x3 and CN's II-XII intact bilaterally Sensorium / Orientation: alert Skin General Skin Exam: pallor MDM MDM MDM Narrative Medical decision making narrative: Patient presenting with shortness of breath. She states she never really actually was better but now she is requiring more O2 than she was discharged home with. Her CBC shows no leukocytosis although her white blood cell count is higher than previous. Hemoglobin is stable at 11.1. PT is prolonged at 15.5. INR is normal. Creatinine is slightly increased to 1.65. Electrolytes are normal. Patient's total bilirubin is elevated at 1.80 which is higher than her last visit but not the highest that it has been. Alkaline phosphatase is also elevated. Lactic acid 1.9. BNP 129. EKG on my interpretation shows a paced rhythm at 67 bpm. Chest x-ray on my interpretation shows a pleural effusion which is larger than her previous effusion with some mediastinal shift to the left. Radiologist agree. Patient was initially given breathing treatments for her wheezing and she did have improvement in her respiratory rate and her oxygenation. On reevaluation she had return of wheezing and was given another breathing treatment. She was given Solu-Medrol through the IV as well. Due to patient's increasing oxygen demands I did discuss with hospitalist for admission. Impression: 1. Right-sided pleural effusion 2. Dyspnea 3. Hypoxic respiratory failure 4. Asthma exacerbation Lab Data Attestation: I reviewed the patient's lab results. Labs: Laboratory Results - last 24 hr 06/04/21 06/04/21 06/04/21 17:45 17:45 17:45 WBC 10.1 RBC 3.70 L Hgb 11.1 L Hct 34.9 L MCV 94.3 MCH 30.0 MCHC 31.8 L RDW Std Deviation 51.2 H RDW Coeff of Laurita 14.8 H Plt Count 129 L MPV 11.2 Immature Gran % (Auto) 0.600 Neut % (Auto) 79.8 H Lymph % (Auto) 8.0 L Petroleum % (Auto) 10.1 H Eos % (Auto) 1.0 Baso % (Auto) 0.5 Absolute Neuts (auto) 8.1 H Absolute Lymphs (auto) 0.81 L Nucleated RBC % 0 PT 15.5 H INR 1.3 APTT 33.6 Sodium 138 Potassium 4.5 Chloride 102 Carbon Dioxide 25.0 Anion Gap 11 BUN 47 H Creatinine 1.65 H Estim Creat Clear Calc 19.72 Est GFR (MDRD) Af Amer 38 L Est GFR (MDRD) Non-Af 31 L BUN/Creatinine Ratio 28.5 H Glucose 109 H Lactic Acid Calcium 9.3 Magnesium Total Bilirubin 1.80 H AST 35 ALT 23 Alkaline Phosphatase 119 H Lactate Dehydrogenase Troponin I High Sens 38 B-Natriuretic Peptide Total Protein 6.4 Albumin 2.9 L Globulin 3.5 Albumin/Globulin Ratio 0.8 L 06/04/21 06/04/21 06/04/21 17:45 17:45 17:45 WBC RBC Hgb Hct MCV MCH MCHC RDW Std Deviation RDW Coeff of Laurita Plt Count MPV Immature Gran % (Auto) Neut % (Auto) Lymph % (Auto) Petroleum % (Auto) Eos % (Auto) Baso % (Auto) Absolute Neuts (auto) Absolute Lymphs (auto) Nucleated RBC % PT INR APTT Sodium Potassium Chloride Carbon Dioxide Anion Gap BUN Creatinine Estim Creat Clear Calc Est GFR (MDRD) Af Amer Est GFR (MDRD) Non-Af BUN/Creatinine Ratio Glucose Lactic Acid 1.9 Calcium Magnesium 2.0 Total Bilirubin AST ALT Alkaline Phosphatase Lactate Dehydrogenase 283 H Troponin I High Sens B-Natriuretic Peptide 129.9 H Total Protein 6.3 L Albumin Globulin 3.3 Albumin/Globulin Ratio 0.9 Radiography Diagnostic Testing: Clinical Impression(s) from Imaging Studies Chest X-Ray 06/04/21 16:09 IMPRESSION: Enlarging right pleural effusion with mild mediastinal shift to the left. The remainder of the findings appear essentially unchanged. Electronically Signed: Stevenson Douglass DO at 16:46 EST Tel [phone], Service support , Discharge Plan Triage Chief Complaint: Shortness of Breath ED Provider: El Griffin Dx/Rx/DC Orders Prescriptions: No Action cholecalciferol (vitamin D3) 2,000 unit tablet 2,000 unit PO DAILY RF: 0 nitroglycerin [Nitrostat] 0.4 mg tablet, sublingual 0.4 mg SUBLINGUAL Q5-15M PRN (Reason: Cardiac/Chest Pain) RF: 0 metformin 500 mg tablet extended release 24 hr 500 mg PO DAILY RF: 0 pantoprazole 40 mg tablet,delayed release (DR/EC) 40 mg PO DAILY PRN PRN (Reason: GERD) RF: 0 magnesium oxide 400 mg (241.3 mg magnesium) tablet 400 mg PO DAILY RF: 0 furosemide 40 mg tablet 40 mg PO DAILY RF: 0 aspirin [Adult Aspirin Regimen] 81 mg tablet,delayed release (DR/EC) 81 mg PO DAILY RF: 0 spironolactone 25 mg Tablet 25 mg PO BID Qty: 60 RF: 0 losartan 100 mg tablet 50 mg PO DAILY Qty: 0 RF: 0 Primary Care Provider: Toya Mark
[2021-06-04] MEDS: Albuterol 2.5 MG/3 ML VIAL.NEB. INHALATION ×3 (16:30→23:59)
[2021-06-04] MEDS: Ipratropium/Albuterol Sulfate 3 ML AMPUL.NEB INHALATION (16:30)
--- NOTE | 2021-06-04 17:41 | ED.RN ---
MULTIPLE ATTEMPTS BY MULTIPLE NURSE FOR IV. UNSUCCESSFUL. LAB AT BEDSIDE FOR LAB DRAW. DR. LAGOS AWARE.
[2021-06-04] MEDS: MethylPREDNISolone 125 MG/2 ML Vial IV (18:01)
[2021-06-04 18:21] LABS: Absolute Lymphocyte Count 0.81 X10^3/uL (0.83-4.51); Absolute Neutrophil Count 8.1 X10^3/uL (2.0-7.7); Basophil# 0.05 X10^3/uL; Basophil% 0.5 % (0-1); Hematocrit 34.9 % (37-47); Hemoglobin 11.1 g/dL (12.0-15.0); Lymphocyte # 0.81 X10^3/ul (0.83-4.51); Mean Corp Hgb Conc 31.8 g/dL (32-36); Mean Corpuscular Volume 94.3 fL (81-99); Mean Platelet Vol. 11.2 fl (6.2-12.0); Monocyte# 1.02 X10^3/uL; Monocyte% 10.1 % (0-10); NRBC Flagged by Analyzer 0 % (0-5); Neutrophil # 8.07 X10^3/uL (2.7-7.7); Neutrophil % 79.8 % (47-70); Platelet Count 129 K/mm3 (150-450); RBC Distribution Width CV 14.8 % (11.6-14.6); RBC Distribution Width SD 51.2 fl (35.1-43.9); White Blood Count 10.1 K/mm3 (4.4-11.0)
[2021-06-04 18:40] LABS: International Normalized Ratio 1.3; Prothrombin Time (Protime)PT. 15.5 SECONDS (11.7-14.9)
[2021-06-04 18:41] LABS: Partial Thromboplast Time 33.6 Seconds (24.1-36.2)
[2021-06-04 18:51] LABS: ALB/GLOB Ratio 0.8 RATIO (0.9-2.4); AST(SGOT) 35 U/L (15-37); Alanine Aminotransfer ALT/SGPT 23 U/L (13-56); Albumin, Serum 2.9 g/dL (3.2-5.0); Alkaline Phosphatase 119 U/L (45-117); Anion Gap 11 (5-15); BUN 47 mg/dL (7-18); BUN/Creat Ratio 28.5 RATIO (10-20); Calcium,Total 9.3 mg/dL (8.5-10.1); Chloride 102 mmol/L (98-107); Creatinine, Serum 1.65 mg/dL (0.55-1.02); EST Glomerular Filtration Rate 31 mL/min (>60); Est Glom Filt Rate - Afr Amer 38 mL/min (>60); Estimated Creatinine Clearance 19.72 ml/min; Globulin 3.5 g/dL (2.2-4.2); Glucose 109 mg/dL (74-106); Potassium 4.5 mmol/L (3.5-5.1); Protein, Total 6.4 g/dL (6.4-8.2); Sodium Level 138 mmol/L (136-145); Troponin-I HS 38 pg/mL (3.0-54.0)
[2021-06-04 18:52] LABS: BNP,B-Type NATRIURETIC PEPTIDE 129.9 pg/mL (0-100)
[2021-06-04 19:02] LABS: Lactic Acid 1.9 mmol/L (0.4-1.9)
[2021-06-04] MEDS: Acetaminophen 325 MG Tablet 650 MG PO (19:33)
--- NOTE | 2021-06-04 20:54 | PCM.HP.STD ---
HPI - General General Date of Admission: 06/04/21 HPI Narrative VANESA SMITH, is a 86 F who presents with history of decompensated Allan cirrhosis with ascites, hepatic hydrothorax, coagulopathy and thrombocytopenia came to ER with worsening shortness of breath, generalized body aches for about 1 week. Patient on baseline 2 L of oxygen after last discharge but currently increased to 6 L. Patient had right thoracocentesis about about 10 days ago. Denies specific chest pain or pressure. Feels generalized weak. Labs reviewed. INR 1.3. BUN/creatinine elevated. Estimated creatinine clearance 19 mL/min. TB 1.8. Chest x-ray individually reviewed shows right hemithorax whiteout. Twelve-lead EKG shows AV dual paced rhythm at 67 beats per 1. QTc 530 ms. Patient is further admitted. [facility] Medical History (Updated 06/04/21 @ 22:[address] Ricco Rai MD) Acute respiratory failure with hypoxia Ambulates with cane Anxiety Arthritis Ascites Atherosclerotic heart disease of [place] coronary artery without angina pectoris Back pain Cancer Cardiology follow-up encounter CHF (congestive heart failure) Cirrhosis of liver COPD (chronic obstructive pulmonary disease) Diabetes Dietary restriction Esophageal varices Essential hypertension Gastric reflux GERD (gastroesophageal reflux disease) History of atrial fibrillation History of diverticulitis History of echocardiogram History of edema History of GI bleed History of heart attack History of stress test History of thyroid nodule Hx of sigmoidoscopy Hyperlipidemia Hypertension Injury of head and neck Left bundle branch block Leg cramps Non-ischemic cardiomyopathy Non-smoker NSTEMI (non-ST elevated myocardial infarction) (11/27/11) Obesity Paroxysmal atrial fibrillation Pleural effusion Rectal bleeding Restless legs Shortness of breath on exertion Tachy-maegan syndrome TIA (transient ischemic attack) TIA (transient ischemic attack) Type 2 diabetes mellitus without complication Vertigo Wears dentures Wears glasses Home Medications cholecalciferol (vitamin D3) 50 mcg (2,000 unit) tablet 2,000 unit PO DAILY 09/26/18 [History Last Taken 05/21/21] furosemide 40 mg tablet 40 mg PO DAILY 09/26/18 [History Last Taken 05/21/21] metformin 500 mg tablet,extended release 24 hr 500 mg PO DAILY tab 09/26/18 [History Last Taken 05/11/21] nitroglycerin 0.4 mg sublingual tablet 0.4 mg SUBLINGUAL Q5-15M PRN 09/26/18 [History Last Taken Unknown] magnesium oxide 400 mg (241.3 mg magnesium) tablet 400 mg PO DAILY 09/17/20 [History Last Taken 05/21/21] pantoprazole 40 mg tablet,delayed release 40 mg PO DAILY PRN PRN tab 09/17/20 [History Last Taken 05/19/21] aspirin [Adult Aspirin Regimen] 81 mg PO DAILY 05/21/21 [History Last Taken Unknown] losartan 50 mg PO DAILY #0 tab 05/23/21 [Rx Last Taken 05/21/21] spironolactone 25 mg PO BID #60 tab 05/23/21 [Rx Last Taken Unknown] Allergy/AdvReac Type Severity Reaction Status Date / Time amoxicillin Allergy Severe Unknown Verified 06/04/21 15:55 levofloxacin [From Levaquin] Allergy Severe Unknown Verified 06/04/21 15:55 atorvastatin [From Lipitor] AdvReac Severe myalgias Verified 06/04/21 15:55 rosuvastatin [From Crestor] AdvReac Severe myalgias Verified 06/04/21 15:55 carvedilol [From Coreg] AdvReac upset Verified 06/04/21 15:55 stomach Family History Mother CAD (coronary artery disease) Father CAD (coronary artery disease) Sister Myocardial infarction Surgical History H/O coronary artery bypass surgery (03/11/12) History of coronary artery stent placement (11/28/11) History of left heart catheterization (~03/08/12) 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) History of sigmoidoscopy (~03/15/08) Hx of colonoscopy (04/2021) Hx of left cataract extraction Hx of right cataract extraction Social History Smoking Status: Never smoker second hand exposure: No alcohol intake: never substance use type: does not use caffeine: Yes Type: coffee Number of servings: 1 ROS ROS Narrative Constitutional: Reports fatigue and weakness. Dyspnea at rest HEENT: Reports systems reviewed and no addt'l complaints, except as documented Respiratory/Chest: Shortness of breath. Rest admission HPI Gastrointestinal: Denies coffee ground emesis, hematemesis or vomiting Genitourinary: Denies burning urination or new urinary tract symptoms Musculoskeletal: Reports joint pain and limited range of motion Neurologic: Denies seizure-like activity skin: No ulcer. No rash Endocrinology: Reports systems reviewed and no addt'l complaints, except as documented Hematologic/Lymphatic: Reports systems reviewed and no addt'l complaints, except as documented Rest 12 ROS are negative except as mentioned in HPI Vital Signs Vital Signs Vital Signs: 06/04/21 15:46 06/04/21 15:56 06/04/21 16:16 Temperature 96.3 F L Temperature Source Temporal Pulse Rate 77 Respiratory Rate 29 H Respiratory Effort Labored Accessory Muscle Use Blood Pressure 141/57 H Blood Pressure Mean 85 Pulse Ox 96 96 Oxygen Delivery Method Nasal Cannula Nasal Cannula Nasal Cannula Oxygen Flow Rate (L/min) 6 6 6 Fraction of Inspired Oxygen (FIO2) 06/04/21 16:30 06/04/21 18:03 06/04/21 19:35 Temperature Temperature Source Pulse Rate 73 73 89 Respiratory Rate 26 H 23 H 23 H Respiratory Effort Blood Pressure 124/58 H 141/98 H Blood Pressure Mean 80 112 Pulse Ox 98 95 Oxygen Delivery Method Nasal Cannula Nasal Cannula Oxygen Flow Rate (L/min) 6 4 Fraction of Inspired Oxygen (FIO2) 06/04/21 19:49 06/04/21 19:51 06/04/21 20:04 Temperature Temperature Source Pulse Rate 100 Respiratory Rate 25 H Respiratory Effort Blood Pressure Blood Pressure Mean Pulse Ox 96 Oxygen Delivery Method Nasal Cannula Nasal Cannula Oxygen Flow Rate (L/min) 6 4 Fraction of Inspired Oxygen (FIO2) 96 Weight Weight: 160 lb 11.472 oz Body Mass Index (BMI) 29.4 Physical Exam Narrative General: Alert, Oriented x3, Cooperative HEENT: Atraumatic, PERRLA, EOMI, Normocephalic Oral: No Gingival or Mucosal Lesions/ Ulcerations Neck: Supple, No JVD, Negative Carotid Bruits Lungs: Air entry severely diminished on right hemithorax. Dyspnea at rest no crepitation/rhonchi Cardiovascular: Left subclavicular pacemaker, Normal S1, Normal S2, No murmurs Abdomen: Bowel Sounds Present, Soft, Non Tender, Non-Distended : No renal angle tenderness. No suprapubic tenderness. Extremities: No edema, Capillary Refill Less than 3 Seconds Skin: Mild chronic ecchymosis and a scab in lower extremity. Musculoskeletal: No Tenderness to Palpation of Joints or Extremities Neurological: Cranial nerves II-XII grossly intact, DTR 2+/4 and Symmetrical Psych/Mental Status: Flat affect. Results Lab / Micro Data Result Diagrams: 06/04/21 17:45 06/04/21 17:45 Labs: Laboratory Results - last 24 hr 06/04/21 17:45: WBC 10.1, RBC 3.70 L, Hgb 11.1 L, Hct 34.9 L, MCV 94.3, MCH 30.0, MCHC 31.8 L, RDW Std Deviation 51.2 H, RDW Coeff of Laurita 14.8 H, Plt Count 129 L, MPV 11.2, Immature Gran % (Auto) 0.600, Neut % (Auto) 79.8 H, Lymph % (Auto) 8.0 L, [place] % (Auto) 10.1 H, Eos % (Auto) 1.0, Baso % (Auto) 0.5, Absolute Neuts (auto) 8.1 H, Absolute Lymphs (auto) 0.81 L, Nucleated RBC % 0 06/04/21 17:45: PT 15.5 H, INR 1.3, APTT 33.6 06/04/21 17:45: Sodium 138, Potassium 4.5, Chloride 102, Carbon Dioxide 25.0, Anion Gap 11, BUN 47 H, Creatinine 1.65 H, Estim Creat Clear Calc 19.72, Est GFR (MDRD) Af Amer 38 L, Est GFR (MDRD) Non-Af 31 L, BUN/Creatinine Ratio 28.5 H, Glucose 109 H, Calcium 9.3, Total Bilirubin 1.80 H, AST 35, ALT 23, Alkaline Phosphatase 119 H, Troponin I High Sens 38, Total Protein 6.4, Albumin 2.9 L, Globulin 3.5, Albumin/Globulin Ratio 0.8 L 06/04/21 17:45: Lactic Acid 1.9 06/04/21 17:45: B-Natriuretic Peptide 129.9 H Radiology Impression Chest X-Ray 06/04/21 16:09 IMPRESSION: Enlarging right pleural effusion with mild mediastinal shift to the left. The remainder of the findings appear essentially unchanged. Electronically Signed: Stevenson Douglass DO at 16:46 EST Tel [phone], Service support , Assessment & Plan Assessment/Plan (1) Acute on chronic respiratory failure with hypoxia: PLAN: 1. 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 Started on Lasix 40 g IV twice daily. Continue spironolactone. Ultrasound-guided thoracocentesis ordered for tomorrow a.m. Labs ordered for fluid for tomorrow a.m. 2. Decompensated Allan cirrhosis with ascites, hepatic hydrothorax, thrombocytopenia and jaundice: Patient is not candidate for liver transplant. Symptomatic management for ascites, nutritional therapy. 3. essential hypertension: Blood pressure systolic is 130. On Lasix therefore hold patient's home medications. 4. Chronic obstructive pulmonary disease: Currently not in exacerbation. 5. Nonischemic cardiomyopathy-patient's last echo in #1721 showed EF 60%. Patient has pacemaker 6. Mild pulmonary hypertension: RVSP 45 NG. Mild TR. 7. Atherosclerotic heart disease: Currently denies chest pain. DVT prophylaxis: Bilateral SCDs. Patient not candidate for problem prophylaxis due to thrombocytopenia and liver failure. Living will/advanced directive/end of life care: Patient does not have living will or advanced directive. His son is power of assistant prosecuting attorney of health. After discussion of benefits/risks procedures involved with full code, DNR CC arrest and DNR CC, the patient opted for full code but gave option of DNR CC arrest as decompensated cirrhosis has poor prognosis. Patient does want artificial life support including intubation, tube feed, ventilator and/chest compression, central venous catheter, vasopressor and DC shock if needed Total time spent in [id number] encounter in discussion of advanced directive 16 minutes. Charges/Coding Visit Charges Inpatient E&M: 07854 Init Hosp L3 Procedures Hospitalists Procedures: 28605 Advncd Care Plan 30 Min
[2021-06-04 21:19] LABS: ALB/GLOB Ratio 0.9 RATIO (0.9-2.4); Globulin 3.3 g/dL (2.2-4.2); LDH 283 U/L (84-246); Protein, Total 6.3 g/dL (6.4-8.2)
--- NOTE | 2021-06-04 23:05 | PCS.PANDOC ---
PANDEMIC DOCUMENTATION INITIATED: Date: 02/17/2021 Time: 190
[2021-06-05] VITALS (14 sets, daily range): BP systolic 110–146; BP diastolic 54–72; PULSE 67–98; RESP 16–24; TEMP 36.1–36.8; O2SAT 91–99
[2021-06-05] MEDS: Furosemide 40 MG/4 ML Vial IV ×3 (00:34→17:06)
[2021-06-05] MEDS: Spironolactone 25 MG Tablet PO ×3 (00:37→22:39)
[2021-06-05] MEDS: Sodium Chloride 0.65% 1 SPRAY SPRAY.BTL 2 SPRAY NASAL (01:08)
[2021-06-05] MEDS: Acetaminophen 325 MG Tablet 650 MG PO ×3 (02:32→22:42)
[2021-06-05 05:19] LABS: Absolute Lymphocyte Count 0.29 X10^3/uL (0.83-4.51); Absolute Neutrophil Count 5.2 X10^3/uL (2.0-7.7); Basophil# 0.01 X10^3/uL; Basophil% 0.2 % (0-1); Hematocrit 32.2 % (37-47); Hemoglobin 10.3 g/dL (12.0-15.0); Lymphocyte # 0.29 X10^3/ul (0.83-4.51); Lymphocyte % 5.1 % (19-41); Mean Corpuscular Hgb 30.8 pg (27.0-32.0); Mean Corpuscular Volume 96.4 fL (81-99); Mean Platelet Vol. 11.1 fl (6.2-12.0); Monocyte# 0.13 X10^3/uL; Monocyte% 2.3 % (0-10); NRBC Flagged by Analyzer 0 % (0-5); Neutrophil # 5.21 X10^3/uL (2.7-7.7); Neutrophil % 91.7 % (47-70); POSITIVE DIFFERENTIAL YES; Platelet Count 100 K/mm3 (150-450); RBC Distribution Width CV 14.9 % (11.6-14.6); RBC Distribution Width SD 52.3 fl (35.1-43.9); Red Blood Count 3.34 M/mm3 (4.2-5.4); White Blood Count 5.7 K/mm3 (4.4-11.0)
[2021-06-05 05:20] LABS: Differential Indicated SCAN CRITERIA MET
[2021-06-05 05:39] LABS: AST(SGOT) 28 U/L (15-37); Alanine Aminotransfer ALT/SGPT 20 U/L (13-56); Albumin, Serum 2.6 g/dL (3.2-5.0); Alkaline Phosphatase 106 U/L (45-117); Anion Gap 15 (5-15); BUN 60 mg/dL (7-18); BUN/Creat Ratio 34.3 RATIO (10-20); Bilirubin, Direct 0.74 mg/dL (0.00-0.30); Calcium,Total 8.6 mg/dL (8.5-10.1); Chloride 103 mmol/L (98-107); Creatinine, Serum 1.75 mg/dL (0.55-1.02); EST Glomerular Filtration Rate 29 mL/min (>60); Est Glom Filt Rate - Afr Amer 36 mL/min (>60); Estimated Creatinine Clearance 18.59 ml/min; Globulin 3.2 g/dL (2.2-4.2); Glucose 193 mg/dL (74-106); LDH 259 U/L (84-246); Phosphorus 4.6 mg/dL (2.5-4.9); Potassium 4.7 mmol/L (3.5-5.1); Protein, Total 5.8 g/dL (6.4-8.2); Sodium Level 138 mmol/L (136-145)
--- NOTE | 2021-06-05 10:53 | PCM.PN.HOSP ---
Documented by User: Nasima Lyn NP-C 06/05/21 11:02 Subjective Subjective Patient seen and examined. Patient sitting in chair no distress noted. Patient states that she is not have any pain however her belly is sore from coughing. Patient going for thoracentesis this afternoon. Objective Data Objective Data Vital Signs: Vital Signs Temp Pulse Resp BP Pulse Ox 98.2 F 86 20 H 119/61 95 06/05/21 08:10 06/05/21 08:10 06/05/21 08:10 06/05/21 08:10 06/05/21 08:10 Oxygen Flow Rate (L/min) 4 Oxygen Delivery Method Nasal Cannula Weight: 151 lb 14.376 oz Body Mass Index (BMI) 27.6 Intake & Output: Intake and Output for Last 24 Hours 06/03/21 06/04/21 06/05/21 23:59 23:59 23:59 Intake Total 60 / 60 Output Total 100 / 100 Balance -40 / -40 Lab / Micro Data Result Diagrams: 06/05/21 05:10 06/05/21 05:10 Labs: Laboratory Results - last 24 hr 06/04/21 17:45: WBC 10.1, RBC 3.70 L, Hgb 11.1 L, Hct 34.9 L, MCV 94.3, MCH 30.0, MCHC 31.8 L, RDW Std Deviation 51.2 H, RDW Coeff of Laurita 14.8 H, Plt Count 129 L, MPV 11.2, Immature Gran % (Auto) 0.600, Neut % (Auto) 79.8 H, Lymph % (Auto) 8.0 L, [place] % (Auto) 10.1 H, Eos % (Auto) 1.0, Baso % (Auto) 0.5, Absolute Neuts (auto) 8.1 H, Absolute Lymphs (auto) 0.81 L, Nucleated RBC % 0 06/04/21 17:45: PT 15.5 H, INR 1.3, APTT 33.6 06/04/21 17:45: Sodium 138, Potassium 4.5, Chloride 102, Carbon Dioxide 25.0, Anion Gap 11, BUN 47 H, Creatinine 1.65 H, Estim Creat Clear Calc 19.72, Est GFR (MDRD) Af Amer 38 L, Est GFR (MDRD) Non-Af 31 L, BUN/Creatinine Ratio 28.5 H, Glucose 109 H, Calcium 9.3, Total Bilirubin 1.80 H, AST 35, ALT 23, Alkaline Phosphatase 119 H, Troponin I High Sens 38, Total Protein 6.4, Albumin 2.9 L, Globulin 3.5, Albumin/Globulin Ratio 0.8 L 06/04/21 17:45: Lactic Acid 1.9 06/04/21 17:45: B-Natriuretic Peptide 129.9 H 06/04/21 17:45: Magnesium 2.0, Lactate Dehydrogenase 283 H, Total Protein 6.3 L, Globulin 3.3, Albumin/Globulin Ratio 0.9 06/05/21 05:10: WBC 5.7, RBC 3.34 L, Hgb 10.3 L, Hct 32.2 L, MCV 96.4, MCH 30.8, MCHC 32.0, RDW Std Deviation 52.3 H, RDW Coeff of Laurita 14.9 H, Plt Count 100 L, MPV 11.1, Immature Gran % (Auto) 0.700, Neut % (Auto) 91.7 H, Lymph % (Auto) 5.1 L, [place] % (Auto) 2.3, Eos % (Auto) 0.0, Baso % (Auto) 0.2, Absolute Neuts (auto) 5.2, Absolute Lymphs (auto) 0.29 L, Nucleated RBC % 0 06/05/21 05:10: Sodium 138, Potassium 4.7, Chloride 103, Carbon Dioxide 20.0 L, Anion Gap 15, BUN 60 H, Creatinine 1.75 H, Estim Creat Clear Calc 18.59, Est GFR (MDRD) Af Amer 36 L, Est GFR (MDRD) Non-Af 29 L, BUN/Creatinine Ratio 34.3 H, Glucose 193 H, Calcium 8.6, Phosphorus 4.6, Total Bilirubin 1.50 H, Direct Bilirubin 0.74 H, AST 28, ALT 20, Alkaline Phosphatase 106, Lactate Dehydrogenase 259 H, Total Protein 5.8 L, Albumin 2.6 L, Globulin 3.2 Radiography Diagnostic Testing: Radiology Impression Chest X-Ray 06/04/21 16:09 IMPRESSION: Enlarging right pleural effusion with mild mediastinal shift to the left. The remainder of the findings appear essentially unchanged. Electronically Signed: Stevenson Douglass DO at 16:46 EST Tel [phone], Service support , Physical Exam Const alert, oriented x3 and no apparent distress HEENT head/scalp atraumatic Head and Scalp: normocephalic Eyes conjunctivae normal and no scleral icterus Neck full ROM and supple Resp normal respiratory effort and clear to auscultation bilaterally Effort and Inspection: able to speak in complete sentences and symmetric chest movement Cardio regular rate, regular rhythm, S1 normal heart sound and S2 normal heart sound GI normal to inspection, nondistended, normoactive bowel sounds, soft to palpation and non-tender Extremity normal to inspection, full ROM and no clubbing, cyanosis or edema Peripheral Pulses: Yes pulses 2+ throughout Skin no rashes or lesions noted, no wounds and skin turgor normal Neuro oriented x3, moves all extremities, no focal motor deficits and no sensory deficits noted Sensorium / Orientation: awake and alert Speech: speech normal Psych affect normal Assessment & Plan Assessment/Plan (1) Cirrhosis of liver: QUALIFIERS: Ascites presence: with ascites Hepatic cirrhosis type: unspecified hepatic cirrhosis Qualified Code(s): K74.60 - Unspecified cirrhosis of liver; R18.8 - Other ascites (2) Ascites: QUALIFIERS: Ascites type: other type Qualified Code(s): R18.8 - Other ascites (3) Acute on chronic respiratory failure with hypoxia: PLAN: Patient is an 86 female who presented with increased shortness of breath. Patient presented with decompensated cirrhosis, right hemithorax patient had a right thoracentesis approximately 10 days ago and will undergo another on 06-05-21. 1. Acute on chronic hypoxic respiratory failure secondary to right hemithorax -Thoracentesis scheduled for today -Lasix 40 mg IV twice daily -Continue spironolactone -Patient currently on 4 L nasal cannula oxygen, baseline 2 L 2. Decompensated cirrhosis with ascites -Not a candidate for liver transplant, continue symptomatic management 3. Hypertension -Home medication regimen on hold, continue Lasix -Vital signs per protocol, currently stable 4. 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 Alaniz. Documented by User: Dr. Lucio Alaniz MD 06/05/21 11:22 Objective Data Lab / Micro Data Result Diagrams: 06/05/21 05:10 06/05/21 05:10 Assessment & Plan Addt'l Comments This patient was seen in conjunction with RICH Nash . I have independently interviewed and examined the patient and reviewed pertinent historical, laboratory, and other data. Please refer to RICH Nash note for details of this patient's presentation, findings, and recommendations. I have reviewed RICH Nash note and concur with documented findings. In brief, patient is a with multiple comorbidities admitted with progressive shortness of breath Physical Examination: GENERAL: Frail looking HEENT: Atraumatic; EYES; Anicteric, Normal Conjunctiva NECK; supple, normal thyroid, RESPIRATORY: Diminished to auscultation CARDIOVASCULAR: Regular S1 S2, GI: soft, normoactive bowel sounds, : No Renal angle tenderness; EXTREMITIES: No edema, no clubbing, MUSCULOSKELETAL: no muscle waisting NEURO: Awake; no lateralizing signs. SKIN: No Rash PSYCH; Flat affect Assessment: 1. 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 Nonalcoholic fatty liver disease with cirrhosis 3. Ascites 4. Coagulopathy 5. Thrombocytopenia 6. History of esophageal varices 7. Essential hypertension 8. COPD 9. Paroxysmal A. fib 10. Congestive heart failure with preserved ejection fraction 11. Pulmonary hypertension with RVSP of 45 12. Restless leg syndrome 13. Physical deconditioning 14. Coronary artery disease with history of non-STEMI on 11/27/2011 as well as CABG 15 status post pacemaker placement for conduction system disorder 16. Left bundle branch block Recommendations: 1. I have discussed the results of my overview and impressions with the patient 2. Options for management were reviewed Charges/Coding Visit Charges Inpatient E&M: 03874 Subs Hosp L3
[2021-06-05] MEDS: Magnesium Chloride 64 MG Delay Rel.Tablet 128 MG PO (10:54)
[2021-06-05] MEDS: Pantoprazole Sodium 40 MG Tablet PO (10:54)
[2021-06-05] MEDS: Senna/Docusate Sodium 1 Tablet 2 TABLET PO (10:54)
[2021-06-05] MEDS: Cholecalciferol (VIT D3) 25 MCG TABLET (1,000 UNITS) 50 MCG PO (10:54)
[2021-06-05] MEDS: 0.9% Saline Lock 10 ML Syringe IV (11:01)
--- NOTE | 2021-06-05 13:40 | FLU_PTH ---
PATIENT: VANESA SMITH LOC: [facility] U#:[id number] AGE/SX: 86/F ROOM: [facility] RE06/04/[address]: Dr. Lucio Alaniz MD : [id number] BED: 1 DIS: 06/07/2021 SPEC #: [id number] RECD: 06/05/21 13:58 STATUS: JOSE ALEJANDRO FARMER #: [id number] ANA: 06/05/21 13:[address]: Lucio Alaniz DEPT: CYTOLOGY RECD BY: Randi Diaz ENTERED: 06/06/21 08:22 SP TYPE: Fluid OTHR DR: DO Dr. Ricco Conway MD Tissues: Pleural fluid, NOS Procedures: Special Stain Group II Surgery Specimen Level IV Cytospin Fluid HEADER OPERATION: Thoracentesis PRE-OP DIAGNOSIS: Right pleural effusion TISSUE SUBMITTED: Thoracentesis fluid for cytology DIAGNOSIS CYTOLOGY Thoracentesis fluid for cytology (cytospin and cell block): Negative for malignant cells. See comment. CASSIUS:shanda 06/09/2021 COMMENT Clinical correlation and appropriate follow up are necessary. CYTOLOGY STUDY Slides are reviewed. CYTOLOGY GROSS Received is 90 ml of yellow cloudy fluid labeled with the patient's name and and designated per the requisition as thoracentesis. Submitted for cytology preparation including cell block. / shanda 06/06/2021 TC:5 CPT: 50651, 64571
--- NOTE | 2021-06-05 13:50 | RAD_ITS ---
STUDY: X-RAY CHEST REASON FOR EXAM: Female, 86 years old. Post thoracentesis TECHNIQUE: AP inspiration and expiration views COMPARISON: Comparison is made with prior examination dated 06/04/2021. FINDINGS: The patient is status post right thoracentesis. There is no evidence of pneumothorax. Residual pleural-parenchymal changes persist. RAD/Chest Insp/Exp 2 View IMPRESSION: Status post right thoracentesis. There is no evidence of pneumothorax. Persistent pleural-parenchymal changes. Electronically Signed: Rito Puente MD at 14:14 EST , Service support ,
[2021-06-05] MEDS: Lidocaine 2% (20 ml mdv) 20 ML Vial INFILT (13:57)
[2021-06-05 14:05] LABS: Cytology, Body Fluid / CSF SEE PATHOLOGY REPORT
[2021-06-05 14:21] LABS: Body Fluid Mononuclear WBC % 96.1 %; Body Fluid Polynuclear WBC # 0.012 10^3/uL; Body Fluid Polynuclear WBC % 3.9 %; Body Fluid Total Cells Counted 0.449 10^3/ul; White Blood Count/Body Fluid 0.312 10^3/uL
[2021-06-05 14:32] LABS: Appearance/Body Fluid SL CLDY; Auto B Fluid Analyzer BKGD Ct COUNTS W/IN LIMITS (W/IN LIMITS); Color/Body Fluid YELLOW; Source- Body Fluid THORACENTESIS
[2021-06-05 14:43] LABS: Glucose, Body Fluid 190 mg/dL (40-70); LDH,Body Fluid 61 Units/l (Not Establ.); Protein, Body Fluid 1.1 g/dL (Not Establ.)
[2021-06-05 15:12] LABS: Lymphocytes 56 %; Mesothelial Cells 11 %; Monocytes 18 %; Neutrophil (Segs) 7 %; Other Cell Type/BF 8 %
[2021-06-05 15:13] LABS: Body Fluid QC Type(s) BF1Q; Red Cell Count/Body Fluid 74 /mm3
--- NOTE | 2021-06-05 15:29 | CASEMGMT ---
Readmission chart review: 05/21-05/23/21 COPD/Asthma/CHF exac 06/04/21-current Decomp cirrhosis w/ right sided pleural effusion During 1st admission, pt had thoracentesis with 1050ml removed from right lung and was sent home with 2L nc w/ exertion and [facility] SN, PT/OT, aide. See CM assessment from 05/22/21. Pt returned to [facility] ED on 06/04/21 via EMS on bipap for increased SOB for last several days. Pt has hx of LI cirrhosis w/ ascites and hepatic hydrothorax. Pt had another thoracentesis today with 1600ml off the right lung again. Pt is currently on 3L nc at rest. CM to follow for any further discharge planning/needs. Delvin ROONEY CM
--- NOTE | 2021-06-05 23:01 | US_ITS ---
PROCEDURE: ULTRASOUND GUIDED THORACENTESIS. DATE: 06/05/2021. INDICATION: Female, 86 years old. Right pleural effusion. PHYSICIAN: Rito Puente M.D. PROCEDURE: The risks, benefits, and alternatives to the procedure were explained to the patient. The specific risks of bleeding, infection, and pneumothorax requiring chest tube insertion were discussed and accepted. Written informed consent was obtained. Ultrasonographic evaluation of the right lower pleural space was carried out. An adequate pocket was identified. The patient was placed in the sitting, upright position. The overlying skin was prepped and draped in sterile fashion. 1% lidocaine was administered subcutaneously for local anesthesia. Under ultrasound guidance, a 5 Dominican thoracentesis needle/catheter system was advanced into the right posterior lower pleural fluid collection. Approximately 1600 mL of dark jackie-colored fluid was drained. The catheter was removed, and a sterile dressing was applied. A specimen was collected and sent to the laboratory for analysis, as requested by the referring clinician. The patient tolerated the procedure well. A chest x-ray was ordered. US/Thoracentesis W US IMPRESSION: Ultrasound-guided right thoracentesis. Electronically Signed: Rito Puente MD at 14:15 EST , Service support ,
[2021-06-05] MEDS: Albuterol 2.5 MG/3 ML VIAL.NEB. INHALATION (23:54)
[2021-06-06] VITALS (17 sets, daily range): BP systolic 110–132; BP diastolic 41–76; PULSE 70–100; RESP 18–32; TEMP 36.3–36.8; O2SAT 93–97
--- NOTE | 2021-06-06 05:15 | NURSING ---
Pt states she is feeling a little SOB. No increased WOB noted. No use of accessory muscles or nasal flaring noted. Lung sounds clear over left lung parada. Right lung parada with fine crackles and faint expiratory wheeze noted over all lung parada. Decreased air exchange also noted over right lung parada. HR 80 RR 18 SpO2 97% on 2LNC. RT notified and will administer breathing treatment.
[2021-06-06] MEDS: Albuterol 2.5 MG/3 ML VIAL.NEB. INHALATION ×2 (05:37→19:21)
[2021-06-06 06:52] LABS: Absolute Lymphocyte Count 0.91 X10^3/uL (0.83-4.51); Absolute Neutrophil Count 13.4 X10^3/uL (2.0-7.7); Basophil# 0.03 X10^3/uL; Basophil% 0.2 % (0-1); Hematocrit 36.9 % (37-47); Hemoglobin 11.8 g/dL (12.0-15.0); Lymphocyte # 0.91 X10^3/ul (0.83-4.51); Lymphocyte % 5.9 % (19-41); Mean Corpuscular Hgb 30.6 pg (27.0-32.0); Mean Corpuscular Volume 95.8 fL (81-99); Mean Platelet Vol. 10.7 fl (6.2-12.0); Monocyte# 1.02 X10^3/uL; Monocyte% 6.6 % (0-10); NRBC Flagged by Analyzer 0 % (0-5); Neutrophil # 13.43 X10^3/uL (2.7-7.7); Neutrophil % 86.5 % (47-70); Platelet Count 161 K/mm3 (150-450); RBC Distribution Width CV 15.1 % (11.6-14.6); RBC Distribution Width SD 52.1 fl (35.1-43.9); Red Blood Count 3.85 M/mm3 (4.2-5.4); White Blood Count 15.5 K/mm3 (4.4-11.0)
[2021-06-06 07:25] LABS: AST(SGOT) 42 U/L (15-37); Alanine Aminotransfer ALT/SGPT 22 U/L (13-56); Albumin, Serum 2.7 g/dL (3.2-5.0); Alkaline Phosphatase 114 U/L (45-117); Anion Gap 8 (5-15); BUN 69 mg/dL (7-18); BUN/Creat Ratio 36.1 RATIO (10-20); Bilirubin, Direct 0.33 mg/dL (0.00-0.30); Calcium,Total 9.3 mg/dL (8.5-10.1); Chloride 104 mmol/L (98-107); Creatinine, Serum 1.91 mg/dL (0.55-1.02); EST Glomerular Filtration Rate 27 mL/min (>60); Est Glom Filt Rate - Afr Amer 32 mL/min (>60); Estimated Creatinine Clearance 17.03 ml/min; Globulin 3.5 g/dL (2.2-4.2); Glucose 147 mg/dL (74-106); Potassium 4.7 mmol/L (3.5-5.1); Protein, Total 6.2 g/dL (6.4-8.2); Sodium Level 138 mmol/L (136-145)
--- NOTE | 2021-06-06 08:19 | RAD_ITS ---
STUDY: X-RAY CHEST REASON FOR EXAM: Female, 86 years old. SOB TECHNIQUE: AP COMPARISON: 06/05/2021 FINDINGS: EKG leads project over the chest. Two lead cardiac conduction device is seen via the left subclavian vein with lead tips projecting over the right atrium and right ventricle, respectively. Sternal wires and mediastinal surgical clips compatible with prior CABG. Enlarging right pleural effusion with further compression of the right lung. No tracheal deviation. There is mild cardiac enlargement. Normal mediastinum and eve. Normal visualized pulmonary arteries. There is atherosclerotic calcification of the aortic arch with tortuosity. There is demineralization of the osseous structures. Normal visualized ribs, clavicles, and shoulders. There is no demonstrated abnormality of the visualized soft tissue structures of the upper abdomen. RAD/Chest 1 View (Portable) IMPRESSION: 1. Enlarging right pleural effusion with underlying parenchymal atelectasis. Electronically Signed: Keith Castañeda MD (Bro[place]) at 17:14 EST , Service support ,
--- NOTE | 2021-06-06 09:36 | CASEMGMT ---
Palliative referral to be faxed per Efren KATZ. Order placed and referral emailed to [facility] at this time. Delvin ROONEY CM
[2021-06-06] MEDS: Acetaminophen 325 MG Tablet 650 MG PO (09:38)
[2021-06-06] MEDS: Cholecalciferol (VIT D3) 25 MCG TABLET (1,000 UNITS) 50 MCG PO (09:39)
[2021-06-06] MEDS: Senna/Docusate Sodium 1 Tablet 2 TABLET PO (09:39)
[2021-06-06] MEDS: 0.9% Saline Lock 10 ML Syringe IV ×2 (09:40→12:58)
[2021-06-06] MEDS: Magnesium Chloride 64 MG Delay Rel.Tablet 128 MG PO (09:40)
[2021-06-06] MEDS: Pantoprazole Sodium 40 MG Tablet PO (09:40)
[2021-06-06] MEDS: Aspirin E.C. 81 MG Tablet PO (09:40)
[2021-06-06] MEDS: Furosemide 40 MG/4 ML Vial IV ×2 (09:40→17:30)
[2021-06-06] MEDS: Spironolactone 25 MG Tablet PO ×2 (09:40→20:47)
--- NOTE | 2021-06-06 11:10 | PCM.CONS.P ---
Assessment & Plan Assessment/Plan (1) Shortness of breath: (2) Acute on chronic respiratory failure with hypoxia: (3) Cirrhosis of liver: QUALIFIERS: Hepatic cirrhosis type: unspecified hepatic cirrhosis Ascites presence: with ascites Qualified Code(s): K74.60 - Unspecified cirrhosis of liver; R18.8 - Other ascites (4) Ascites: QUALIFIERS: Ascites type: other type Qualified Code(s): R18.8 - Other ascites (5) Non-ischemic cardiomyopathy: (6) Atherosclerotic heart disease of [place] coronary artery without angina pectoris: QUALIFIERS: [place] vs. transplanted heart: [place] heart Qualified Code(s): I25.10 - Atherosclerotic heart disease of [place] coronary artery without angina pectoris (7) Ventral incisional hernia without obstruction or gangrene: (8) Asthma: QUALIFIERS: Asthma severity: unspecified severity Asthma persistence: unspecified Asthma complication type: unspecified Qualified Code(s): J45.909 - Unspecified asthma, uncomplicated PLAN: 86-year-old female with advanced liver cirrhosis and Allan, acute on chronic hypoxemic respiratory failure requiring increasingly frequent thoracentesis and paracentesis. Seen today for palliative consultation. 1. Shortness of breath/acute on chronic hypoxemic respiratory failure: She is quite tachypneic, O2 sats 93% on 3 L. She is orthopneic, improved when I repositioned her. Reviewed her chest x-ray, which appears to have mostly white out on the right. She just had a thoracentesis 06/05. It appears her fluid has reaccumulated. She does have a very poor prognosis, we discussed palliative services versus hospice services. Patient and her son/BRYAN Whittington have opted for home with hospice 06/07. Liaison is coming in to meet with the patient and her son to get her enrolled in services. I did explain that the goal is to control her symptoms, not curative. See HPI 2. Cirrhosis of the liver/ascites/nonischemic cardiomyopathy/CAD status post CABG/ventral incisional hernia/asthma/history of esophageal varices: Complicates overall care and prognosis. Thank you for the opportunity to participate in this patient's care, please do not hesitate to contact [facility] with any further questions or concerns. Palliative direct line is [phone]. The patient will be admitted to hospice. Greater than 50% of F2F visit dedicated to education and counseling of palliative care services, medications, comorbid conditions and potential assistance with management, and plan of care moving forward. Time also includes collaborating with attending physician, MANAGER FRENCH, and staff at [facility]. Start time: 1110 End time: 1235 HPI Consult Data Date of Consult: 06/06/21 HPI Narrative HPI Narrative: RADHA SMITH, is a 86 F with and extensive PMH, who presented to [facility] 06/04/2021 with increased shortness of breath. She was just discharged from [facility] for the same symptoms and had acute on chronic hypoxemic respiratory failure secondary to fluid overload with a history of cirrhosis secondary to ALLAN. At that time, she was diuresed and underwent thoracentesis with approximately 1 L of fluid removed. She also had some ascites but not enough for paracentesis. Patient did have prior paracentesis at the beginning of May where approximately 6 L of fluid was removed. In the ED, patient had chest x-ray which revealed right hemithorax white out. She had also had QT prolongation on her EKG with paced rhythm. Last thoracentesis was May 21. Patient noted not to be a candidate for liver transplant and is being symptom managed for ascites and nutrition. It appears other providers have had discussions on CODE STATUS due to her decompensated cirrhosis with very poor prognosis, however patient has opted for full code. She had another thoracentesis 06/05 with removal of 1.6 L. Her white count was normal upon admission, now 15.5. Renal function is slightly worse than yesterday with a GFR of 27. Patient lives with her grandson, Rene. Her son Abhishek and patient's ex [id number] also help with her care. DME in the home includes a shower chair, bedside commode, cane, lift chair, nebulizer, blood pressure machine, and a glucometer that is not currently functional. She uses a whistle to alert her family if she needs anything. Her son, Pk is her HC POA. Radha is still alert and oriented x3 and able to make her own decisions, with the assistance of her son. Uses [facility] retail pharmacy for medications. She also follows with Dr. Park and Dr. Flor. Patient complains of harsh, moist cough and soreness in her chest and abdomen when she coughs. She has been a standby assist with a cane for ambulation, however now she is barely able to get up out of bed without feeling severely fatigued and short of breath. She has therapy ordered but has declined participation. Patient and family were initially wanting patient to go to an extended care facility, however we had a discussion on her comorbid conditions and current state of health. Explained also that she cannot go to a [facility] nursing facility for therapy if she is not doing therapy in the hospital. She again declines. Patient is having some nausea, no vomiting. Abdominal pain rating 6 out of 10. She is using accessory muscles for breathing and her respiratory rate is 32. Student nurse in to do vitals, patient is saturating 93% on 3 L of oxygen supplementation. She is afebrile and blood pressure stable at 132/60. Her abdomen hurts even without palpation. I had an extensive conversation on CODE STATUS, including explaining the differences between a full code, DNR CCA, and DNR CC. The patient has informed me she does not want any chest compressions. She is not sure if she wants comfort care measures only, so is currently agreeable to DNR CCA. I also thoroughly explained palliative and hospice services with benefits and limitations of each. Given the fact that her symptoms are poorly controlled at this point and she does not want CPR or aggressive treatment, nor does she want therapy or ECF/SNF, I did advise of her very poor prognosis that would qualify her for hospice services. I also gave her other options, such as as needed and/or routine thoracentesis/paracentesis, admission to ECF for some rehab, or discussion with her doctor regarding possible insertion of pleural cath to drain fluid as needed. She expresses interest in hospice over all other options, we will send a liaison out to talk with the patient and her son. They will contact him and arrange this. Hopefully we can get her home with hospice tomorrow and get her more comfortable. PENDING SALE TO [facility] Medical History (Updated 06/06/21 @ 12:47 by Jil Nieto NP-C) Acute respiratory failure with hypoxia Ambulates with cane Anxiety Arthritis Ascites Atherosclerotic heart disease of [place] coronary artery without angina pectoris Back pain Cancer Cardiology follow-up encounter CHF (congestive heart failure) Cirrhosis of liver COPD (chronic obstructive pulmonary disease) Diabetes Dietary restriction Esophageal varices Essential hypertension GERD (gastroesophageal reflux disease) History of atrial fibrillation History of diverticulitis History of echocardiogram History of edema History of GI bleed History of heart attack History of stress test History of thyroid nodule Hx of sigmoidoscopy Hyperlipidemia Hypertension Injury of head and neck Left bundle branch block Leg cramps Non-ischemic cardiomyopathy Non-smoker NSTEMI (non-ST elevated myocardial infarction) (11/27/11) Obesity Paroxysmal atrial fibrillation Pleural effusion Rectal bleeding Restless legs Shortness of breath on exertion Tachy-maegan syndrome TIA (transient ischemic attack) Type 2 diabetes mellitus without complication Vertigo Wears dentures Wears glasses Home Medications cholecalciferol (vitamin D3) 50 mcg (2,000 unit) tablet 2,000 unit PO DAILY 09/26/18 [History Last Taken 06/04/21 09:00] furosemide 40 mg tablet 40 mg PO DAILY 09/26/18 [History Last Taken 06/04/21 09:00] metformin 500 mg tablet,extended release 24 hr 500 mg PO DAILY tab 09/26/18 [History Last Taken 06/04/21 09:00] nitroglycerin 0.4 mg sublingual tablet 0.4 mg SUBLINGUAL Q5-15M PRN 09/26/18 [History Last Taken Unknown] magnesium oxide 400 mg (241.3 mg magnesium) tablet 400 mg PO DAILY 09/17/20 [History Last Taken 06/04/21 09:00] pantoprazole 40 mg tablet,delayed release 40 mg PO DAILY PRN PRN tab 09/17/20 [History Last Taken 05/19/21] aspirin [Adult Aspirin Regimen] 81 mg PO DAILY 05/21/21 [History Last Taken Unknown] losartan 50 mg PO DAILY #0 tab 05/23/21 [Rx Last Taken 06/04/21 09:00] spironolactone 25 mg PO BID #60 tab 05/23/21 [Rx Last Taken 06/04/21 09:00] potassium chloride 10 meq PO 06/04/21 [History Last Taken 06/04/21 09:00] Allergy/AdvReac Type Severity Reaction Status Date / Time amoxicillin Allergy Severe Unknown Verified 06/04/21 15:55 levofloxacin [From Levaquin] Allergy Severe Unknown Verified 06/04/21 15:55 atorvastatin [From Lipitor] AdvReac Severe myalgias Verified 06/04/21 15:55 rosuvastatin [From Crestor] AdvReac Severe myalgias Verified 06/04/21 15:55 carvedilol [From Coreg] AdvReac upset Verified 06/04/21 15:55 stomach Family History Mother CAD (coronary artery disease) Father CAD (coronary artery disease) Sister Myocardial infarction Surgical History H/O coronary artery bypass surgery (03/11/12) History of coronary artery stent placement (11/28/11) History of left heart catheterization (~03/08/12) 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) History of sigmoidoscopy (~03/15/08) Hx of colonoscopy (04/2021) Hx of left cataract extraction Hx of right cataract extraction Social History Smoking Status: Never smoker second hand exposure: No alcohol intake: never substance use type: does not use caffeine: Yes Type: coffee Number of servings: 1 ROS ROS Narrative Review of systems otherwise negative from a constitutional, HEENT, respiratory, cardiovascular, GI, genitourinary, musculoskeletal, skin, neurologic, psychiatric and hematologic system unless stated above. Physical Exam Const alert and oriented x3 Constitutional Narrative: Tachypneic, unable to speak in complete sentences. Using 1-2 words at a time General Appearance: in distress Positive for respiratory and ill appearing Nutritional Appearance: obese HEENT normocephalic and head/scalp atraumatic Neck supple General: trachea midline Chest Chest: symmetrical chest wall rise Resp Resp Narrative: Essentially no breath sounds on the right other than very upper lobe, diminished on the left. Some expiratory wheezing Effort and Inspection: tachypneic, pursed lip breathing, actively coughing and uses accessory muscles; Negative for able to speak in complete sentences Cardio S1 normal heart sound and S2 normal heart sound Rate: tachycardic GI GI Narrative: Tender abdomen, more so on the upper quadrants than lower Inspection: abdominal distention Auscultation: hypoactive bowel sounds Palpation: tender and ascites Extremity no clubbing, cyanosis or edema Skin General Skin Exam: ecchymosis and petechiae Lesions: no lesions Rashes: no rashes Neuro CN's II-XII intact bilaterally, moves all extremities and no focal motor deficits Psych mental status grossly normal Psych Narrative: Struggling to breathe, somewhat anxious Activity / Motor Behavior: appropriate eye contact Mood & Affect: flat affect Memory / Cognition: memory grossly intact Insight: fair
--- NOTE | 2021-06-06 11:30 | CASEMGMT ---
Per Nurse Practitioner Nasima patient's son wants patient to go to a SNF and patient is in agreement. Jil from Palliative Care is here to see patient and her son. SW will check with patient and her son after that visit. Ritu AGUIRRE
--- NOTE | 2021-06-06 12:18 | CASEMGMT ---
Cherri MARKETING PRODUCER from [facility] here to see pt and son who is at bedside. After long discussion with pt/son, Jil states that pt is agreeable to hospice and would like to go home with Hospice. Kathy CENTENO aware, voices understanding. Delvin ROONEY CM
--- NOTE | 2021-06-06 12:49 | CASEMGMT ---
Patient has elected to go home on hospice. SW notified therapy not to see patient as she will be going home on hospice. Green sheet on chart. Plan: d/c home on Hospice. Ritu AGUIRRE
--- NOTE | 2021-06-06 12:51 | PCM.PN.HOSP ---
Documented by User: Nasima Lyn NP-C 06/06/21 12:55 Subjective Subjective Patient seen and examined. Patient states that she is continuing to have dull pain across her rib cage. Patient states that she is tired and she is not wanting to work with therapy. Objective Data Objective Data Vital Signs: Vital Signs Temp Pulse Resp BP Pulse Ox 97.6 F L 98 16 132/60 H 93 06/06/21 11:57 06/06/21 11:57 06/06/21 11:57 06/06/21 11:57 06/06/21 11:57 Oxygen Flow Rate (L/min) [5] 3 Oxygen Flow Rate (L/min) [4] 3 Oxygen Flow Rate (L/min) [3] 3 Oxygen Flow Rate (L/min) [2] 3 Oxygen Flow Rate (L/min) [1 ( 3 Initial Baseline)] Oxygen Flow Rate (L/min) 3 Oxygen Delivery Method [5] Nasal Cannula Oxygen Delivery Method [4] Nasal Cannula Oxygen Delivery Method [3] Nasal Cannula Oxygen Delivery Method [2] Nasal Cannula Oxygen Delivery Method [1 ( Nasal Cannula Initial Baseline)] Oxygen Delivery Method Nasal Cannula Weight: 151 lb 14.376 oz Body Mass Index (BMI) 27.6 Intake & Output: Intake and Output for Last 24 Hours 06/04/21 06/05/21 06/06/21 23:59 23:59 23:59 Intake Total 720 / 720 Output Total 1700 / 1700 Balance -980 / -980 Lab / Micro Data Result Diagrams: 06/06/21 06:30 06/06/21 06:30 Labs: Laboratory Results - last 24 hr 06/04/21 13:40: Fluid Glucose 190 H, Fluid Total Protein 1.1, Fluid LDH 61 06/05/21 13:40: Fluid Source THORACENTESIS, Fluid Color YELLOW, Fluid Appearance SL CLDY, Fluid WBC 0.312, Fluid RBC 74, Fluid Tot Cell Count 0.449 H, Fld Polynuclear WBCs # 0.012, Fld Polynuclear WBCs % 3.9, Fluid Mononuclear WBCs 0.300, Fld Mononuclear WBCs % 96.1, Fluid Neutrophils 7, Fluid Lymphocytes 56, Fluid Monocytes 18, Fld Mesothelial Cells 11, Fluid Other Cells 8, Fl Pathologist Comment May follow, Fluid Comment 2 SEE COMMENT 06/06/21 06:30: Sodium 138, Potassium 4.7, Chloride 104, Carbon Dioxide 26.0, Anion Gap 8, BUN 69 H, Creatinine 1.91 H, Estim Creat Clear Calc 17.03, Est GFR (MDRD) Af Amer 32 L, Est GFR (MDRD) Non-Af 27 L, BUN/Creatinine Ratio 36.1 H, Glucose 147 H, Calcium 9.3, Total Bilirubin 1.20 H, Direct Bilirubin 0.33 H, AST 42 H, ALT 22, Alkaline Phosphatase 114, Total Protein 6.2 L, Albumin 2.7 L, Globulin 3.5 06/06/21 06:30: WBC 15.5 H, RBC 3.85 L, Hgb 11.8 L, Hct 36.9 L, MCV 95.8, MCH 30.6, MCHC 32.0, RDW Std Deviation 52.1 H, RDW Coeff of [place] 15.1 H, Plt Count 161, MPV 10.7, Immature Gran % (Auto) 0.800, Neut % (Auto) 86.5 H, Lymph % (Auto) 5.9 L, [place] % (Auto) 6.6, Eos % (Auto) 0.0, Baso % (Auto) 0.2, Absolute Neuts (auto) 13.4 H, Absolute Lymphs (auto) 0.91, Nucleated RBC % 0 Micro: Microbiology 06/05/21 13:40 Fluid - Thoracentesis Fluid Body Fluid Culture - Preliminary No growth-Final to follow Radiography Diagnostic Testing: Radiology Impression Chest X-Ray 06/05/21 13:50 IMPRESSION: Status post right thoracentesis. There is no evidence of pneumothorax. Persistent pleural-parenchymal changes. Electronically Signed: Rito Puente MD at 14:14 EST , Service support , Thoracentesis Ultrasound 06/05/21 23:01 IMPRESSION: Ultrasound-guided right thoracentesis. Electronically Signed: Rito Puente MD at 14:15 EST , Service support , Physical Exam Const alert, oriented x3 and no apparent distress HEENT head/scalp atraumatic Eyes conjunctivae normal and no scleral icterus Neck full ROM and supple Resp normal respiratory effort and clear to auscultation bilaterally Effort and Inspection: able to speak in complete sentences and symmetric chest movement Auscultation: diminished lung sounds Cardio regular rate, regular rhythm, S1 normal heart sound and S2 normal heart sound GI normal to inspection, nondistended, normoactive bowel sounds, soft to palpation and non-tender Extremity normal to inspection, full ROM and no clubbing, cyanosis or edema Skin no rashes or lesions noted, no wounds and skin turgor normal Neuro oriented x3, moves all extremities, no focal motor deficits and no sensory deficits noted Sensorium / Orientation: awake and alert Speech: speech normal Psych affect normal Assessment & Plan Assessment/Plan (1) Cirrhosis of liver: QUALIFIERS: Ascites presence: with ascites Hepatic cirrhosis type: unspecified hepatic cirrhosis Qualified Code(s): K74.60 - Unspecified cirrhosis of liver; R18.8 - Other ascites (2) Ascites: QUALIFIERS: Ascites type: other type Qualified Code(s): R18.8 - Other ascites (3) Acute on chronic respiratory failure with hypoxia: PLAN: Patient is an 86 female who presented with increased shortness of breath. Patient presented with decompensated cirrhosis, right hemithorax patient had a right thoracentesis approximately 10 days ago and will undergo another on 06-05-21. 1. Acute on chronic hypoxic respiratory failure secondary to right hemithorax -Thoracentesis completed yesterday, 1600 mL removed. -Lasix 40 mg IV twice daily -Continue spironolactone -Patient currently on 2 L nasal cannula oxygen which is patient's baseline 2. Decompensated cirrhosis with ascites -Not a candidate for liver transplant, continue symptomatic management -Due to patient not wanting to work with therapy and patient probable ongoing need for thoracentesis in the future discussed with patient's family palliative care consult. Patient was seen by Amalia KATZ with palliative care and patient's family has requested to go home with hospice due to patient's chronic diseases. Patient will be discharged home with hospice tomorrow pending any changes in patient's medical status. 3. Hypertension -Home medication regimen on hold, continue Lasix -Vital signs per protocol, currently stable 4. 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 Alaniz. Documented by User: Dr. Lucio Alaniz MD 06/06/21 13:13 Objective Data Lab / Micro Data Result Diagrams: 06/06/21 06:30 06/06/21 06:30 Assessment & Plan Addt'l Comments This patient was seen in conjunction with RICH Nash . I have independently interviewed and examined the patient and reviewed pertinent historical, laboratory, and other data. Please refer to RICH Nash note for details of this patient's presentation, findings, and recommendations. I have reviewed RICH Nash note and concur with documented findings. In brief, patient is a with multiple comorbidities admitted with progressive shortness of breath 06/06/2021; patient underwent ultrasound-guided thoracocentesis the day prior with 1.6 L of dark jackie-colored fluid drained. Patient remains significantly deconditioned. Discussions held with family. Plan is for patient to be discharged home with hospice on 06/07/2021 Physical Examination: GENERAL: Frail looking HEENT: Atraumatic; EYES; Anicteric, Normal Conjunctiva NECK; supple, normal thyroid, RESPIRATORY: Diminished to auscultation CARDIOVASCULAR: Regular S1 S2, GI: soft, normoactive bowel sounds, : No Renal angle tenderness; EXTREMITIES: No edema, no clubbing, MUSCULOSKELETAL: no muscle waisting NEURO: Awake; no lateralizing signs. SKIN: No Rash PSYCH; Flat affect Assessment: 1. 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 Nonalcoholic fatty liver disease with cirrhosis 3. Ascites 4. Coagulopathy 5. Thrombocytopenia 6. History of esophageal varices 7. Essential hypertension 8. COPD 9. Paroxysmal A. fib 10. Congestive heart failure with preserved ejection fraction 11. Pulmonary hypertension with RVSP of 45 12. Restless leg syndrome 13. Physical deconditioning 14. Coronary artery disease with history of non-STEMI on 11/27/2011 as well as CABG 15. Status post pacemaker placement for conduction system disorder 16. Left bundle branch block ?17 physical deconditioning Recommendations: 1. I have discussed the results of my overview and impressions with the patient 2. Options for management were reviewed Charges/Coding Visit Charges Inpatient E&M: 01477 Subs Hosp L2
[2021-06-06] MEDS: Morphine 2 MG/ML Syringe IV (12:57)
--- NOTE | 2021-06-06 13:44 | NURSING ---
Read and reviewed SN documentation.
--- NOTE | 2021-06-06 14:42 | CASEMGMT ---
TARYN called Hospice and spoke with Hemalatah. They have not scheduled an appt with patient or her son yet. She said she will call him now. TARYN told her the plan is to discharge her home with family tomorrow. Ritu AGUIRRE
--- NOTE | 2021-06-06 14:45 | CASEMGMT ---
SW received a call from Hemalatha with Hospice and they will be meeting with patient and her son tomorrow at 10am. Ritu AGUIRRE
[2021-06-06] MEDS: morphine (oral solution) 10MG/0.5ML Syringe 5 MG SL (20:52)
[2021-06-07] VITALS (8 sets, daily range): BP systolic 96–105; BP diastolic 43–65; PULSE 76–84; RESP 16–20; TEMP 36.4–36.5; O2SAT 2–96
[2021-06-07] MEDS: morphine (oral solution) 10MG/0.5ML Syringe 5 MG SL ×3 (06:05→11:39)
[2021-06-07] MEDS: LORazepam 0.5 MG Tablet PO (06:38)
[2021-06-07 07:19] LABS: Absolute Lymphocyte Count 0.49 X10^3/uL (0.83-4.51); Absolute Neutrophil Count 4.5 X10^3/uL (2.0-7.7); Hemoglobin 10.7 g/dL (12.0-15.0); Lymphocyte # 0.49 X10^3/ul (0.83-4.51); Lymphocyte % 8.7 % (19-41); Mean Corp Hgb Conc 31.5 g/dL (32-36); Mean Corpuscular Hgb 30.4 pg (27.0-32.0); Mean Corpuscular Volume 96.6 fL (81-99); Mean Platelet Vol. 11.2 fl (6.2-12.0); Monocyte# 0.62 X10^3/uL; NRBC Flagged by Analyzer 0 % (0-5); Neutrophil # 4.48 X10^3/uL (2.7-7.7); Neutrophil % 79.8 % (47-70); POSITIVE COUNT YES; POSITIVE DIFFERENTIAL YES; Platelet Count 76 K/mm3 (150-450); RBC Distribution Width CV 15.3 % (11.6-14.6); RBC Distribution Width SD 53.3 fl (35.1-43.9); Red Blood Count 3.52 M/mm3 (4.2-5.4); White Blood Count 5.6 K/mm3 (4.4-11.0)
[2021-06-07 07:39] LABS: Differential Indicated SCAN CRITERIA MET
[2021-06-07 07:44] LABS: AST(SGOT) 26 U/L (15-37); Alanine Aminotransfer ALT/SGPT 20 U/L (13-56); Albumin, Serum 2.4 g/dL (3.2-5.0); Alkaline Phosphatase 98 U/L (45-117); Anion Gap 7 (5-15); BUN 70 mg/dL (7-18); BUN/Creat Ratio 39.8 RATIO (10-20); Bilirubin, Direct 0.65 mg/dL (0.00-0.30); Calcium,Total 8.6 mg/dL (8.5-10.1); Chloride 104 mmol/L (98-107); Creatinine, Serum 1.76 mg/dL (0.55-1.02); EST Glomerular Filtration Rate 29 mL/min (>60); Est Glom Filt Rate - Afr Amer 35 mL/min (>60); Estimated Creatinine Clearance 18.48 ml/min; Globulin 3.1 g/dL (2.2-4.2); Glucose 152 mg/dL (74-106); Potassium 4.6 mmol/L (3.5-5.1); Protein, Total 5.5 g/dL (6.4-8.2); Sodium Level 140 mmol/L (136-145)
[2021-06-07 09:23] LABS: Differential Comment SCANNED; Platelet Estimate MOD DEC (ADEQ)
[2021-06-07] MEDS: Cholecalciferol (VIT D3) 25 MCG TABLET (1,000 UNITS) 50 MCG PO (10:37)
[2021-06-07] MEDS: Spironolactone 25 MG Tablet PO (10:37)
[2021-06-07] MEDS: Pantoprazole Sodium 40 MG Tablet PO (10:37)
[2021-06-07] MEDS: Magnesium Chloride 64 MG Delay Rel.Tablet 128 MG PO (10:37)
[2021-06-07] MEDS: Senna/Docusate Sodium 1 Tablet 2 TABLET PO (10:37)
[2021-06-07] MEDS: Aspirin E.C. 81 MG Tablet PO (10:37)
[2021-06-07] MEDS: Furosemide 40 MG Tablet PO (10:55)
--- NOTE | 2021-06-07 11:02 | PCM.DC ---
Discharge Instructions Diet Discharge Diet: No restrictions Activity Discharge Activity: No Restrictions Follow Up Care Test Results: Test results from this visit will be discussed in further detail at your follow-up appointment, if applicable. Discharge Plan Admission Admit Date/Time: 06/04/21 20:46 Primary Reason for Your Visit: End Stage Cirrhosis Attending Provider: Lucio Alaniz Primary Care Provider: Toya Mark Discharge Orders/Prescriptions Prescriptions: New furosemide 40 mg Tablet 40 mg PO BIDLX Qty: 0 RF: 0 lorazepam 0.5 mg Tablet 0.5 mg PO Q4H PRN PRN (Reason: Anxiety) Qty: 0 RF: 0 morphine concentrate 10 mg/0.5 mL Syringe 5 mg sublingual Q2H PRN PRN (Reason: Pain Score 6-10) Qty: 0 RF: 0 Continued spironolactone 25 mg Tablet 25 mg PO BID Qty: 60 RF: 0 Discontinued cholecalciferol (vitamin D3) 2,000 unit tablet 2,000 unit PO DAILY RF: 0 nitroglycerin [Nitrostat] 0.4 mg tablet, sublingual 0.4 mg SUBLINGUAL Q5-15M PRN (Reason: Cardiac/Chest Pain) RF: 0 metformin 500 mg tablet extended release 24 hr 500 mg PO DAILY RF: 0 pantoprazole 40 mg tablet,delayed release (DR/EC) 40 mg PO DAILY PRN PRN (Reason: GERD) RF: 0 magnesium oxide 400 mg (241.3 mg magnesium) tablet 400 mg PO DAILY RF: 0 furosemide 40 mg tablet 40 mg PO DAILY RF: 0 aspirin [Adult Aspirin Regimen] 81 mg tablet,delayed release (DR/EC) 81 mg PO DAILY RF: 0 losartan 100 mg tablet 50 mg PO DAILY Qty: 0 RF: 0 potassium chloride 10 mEq tablet extended release 10 meq PO RF: 0 Referrals / Follow Up: Toya Mark DO [Primary Care Provider] - Disposition Disposition (needs filled in before D/C Order can be placed): Hospice in Medical Facility
--- NOTE | 2021-06-07 11:14 | PCM.DC.SUM ---
Documented by User: RICH Nash 06/07/21 11:22 Providers Date of Admission: 06/04/21 Primary Care Physician: Dr. Toya Mark DO Reason For Visit: DECOMPENSATED CIRRHOSIS WITH RIGHT Diagnosis Discharge Diagnosis (1) Cirrhosis of liver: Status: Acute Code(s): K74.60 - Unspecified cirrhosis of liver Qualifiers: Ascites presence: with ascites Hepatic cirrhosis type: unspecified hepatic cirrhosis Qualified Code(s): K74.60 - Unspecified cirrhosis of liver; R18.8 - Other ascites (2) Ascites: Status: Acute Code(s): R18.8 - Other ascites Qualifiers: Ascites type: other type Qualified Code(s): R18.8 - Other ascites (3) Acute on chronic respiratory failure with hypoxia: Status: Chronic Code(s): J96.21 - Acute and chronic respiratory failure with hypoxia Medications at Discharge Home Medications spironolactone 25 mg PO BID #60 tab 05/23/21 furosemide 40 mg PO BIDLX #0 tab 06/07/21 lorazepam 0.5 mg PO Q4H PRN PRN #0 tab 06/07/21 morphine concentrate 5 mg SUBLINGUAL Q2H PRN PRN #0 ea 06/07/21 Hospital Course Operations None Procedures Thoracentesis Summary of Care Provided Minutes Spent on Discharge: 35 Hospital Course: Patient is a 86-year-old female who initially presented for increased shortness of breath. Patient has a history of decompensated cirrhosis with ascites as well as hypertension, cardiomyopathy, COPD, atherosclerotic heart disease. Patient underwent a chest x-ray which showed a large hepatic hydrothorax. On 06/05/2021 patient underwent a thoracentesis and had 1600 mL of fluid removed. Of note patient had had a thoracentesis done approximately 10 days prior where 1 L of fluid was removed. During patient's admission patient continued to be Tachypneic despite fluid removal. Patient also continuing to experience a significant amount of discomfort. Patient was seen by palliative care and and accepted to hospice for pain management. Family verbalized concerns on day of discharge regarding amount of care patient will need at home due to weakness and ongoing shortness of breath. temperature regulator present for conversation and due to patient's pain management needs as well as increasing tachypnea it was decided that patient would be appropriate for hospice IPU to which patient's son was agreeable. Discussed CODE STATUS with son at length and explained difference between DNR CCA and DNR CC. Patient son amenable to changing patient from DNR CC a no intubation to a DNR CC. DNR CC was completed by . Patient's case was discussed with Malina Oliver NP at hospice. Physical Exam Const no apparent distress General Appearance: lethargic Orientation / Consciousness: oriented to person and oriented to place HEENT normocephalic and head/scalp atraumatic Eyes conjunctivae normal and no scleral icterus Neck full ROM and supple General: trachea midline Resp normal respiratory effort Effort and Inspection: symmetric chest movement Auscultation: diminished lung sounds Cardio regular rate, regular rhythm, S1 normal heart sound and S2 normal heart sound GI soft to palpation and non-tender Palpation: ascites Extremity normal to inspection, full ROM, normal capillary refill and no clubbing, cyanosis or edema Skin no rashes or lesions noted, no wounds and skin turgor normal Neuro oriented x3, moves all extremities, no focal motor deficits and no sensory deficits noted Sensorium / Orientation: awake and alert Speech: speech normal Motor Exam: general weakness Psych cooperative Weight / BMI Weight Weight: 151 lb 14.376 oz Body Mass Index (BMI) 27.6 ABG / Lab / Microbiology Data Result Diagrams: 06/07/21 05:57 06/07/21 05:57 Laboratory: Laboratory Results - last 24 hr 06/07/21 05:57: Sodium 140, Potassium 4.6, Chloride 104, Carbon Dioxide 29.0, Anion Gap 7, BUN 70 H, Creatinine 1.76 H, Estim Creat Clear Calc 18.48, Est GFR (MDRD) Af Amer 35 L, Est GFR (MDRD) Non-Af 29 L, BUN/Creatinine Ratio 39.8 H, Glucose 152 H, Calcium 8.6, Total Bilirubin 1.50 H, Direct Bilirubin 0.65 H, AST 26, ALT 20, Alkaline Phosphatase 98, Total Protein 5.5 L, Albumin 2.4 L, Globulin 3.1 06/07/21 05:57: WBC 5.6, RBC 3.52 L, Hgb 10.7 L, Hct 34.0 L, MCV 96.6, MCH 30.4, MCHC 31.5 L, RDW Std Deviation 53.3 H, RDW Coeff of Laurita 15.3 H, Plt Count 76 L, MPV 11.2, Immature Gran % (Auto) 0.500, Neut % (Auto) 79.8 H, Lymph % (Auto) 8.7 L, [place] % (Auto) 11.0 H, Eos % (Auto) 0.0, Baso % (Auto) 0.0, Absolute Neuts (auto) 4.5, Absolute Lymphs (auto) 0.49 L, Nucleated RBC % 0, Differential Comment SCANNED, Platelet Estimate MOD DEC Microbiology: Microbiology 06/05/21 05:46 Blood Culture (Wb) - Left Hand Blood Culture - Preliminary No growth in 48 hours. 06/04/21 05:10 Blood Culture (Wb) - Left Hand Blood Culture - Preliminary No growth in 48 hours. 06/05/21 13:40 Fluid - Thoracentesis Fluid Gram Stain - Final 06/05/21 13:40 Fluid - Thoracentesis Fluid Body Fluid Culture - Preliminary No growth-Final to follow Radiography Diagnostic Testing: Radiology Impression Chest X-Ray 06/06/21 08:19 IMPRESSION: 1. Enlarging right pleural effusion with underlying parenchymal atelectasis. Electronically Signed: Keith Castañeda MD ([place]) at 17:14 EST , Service support , D/C Instructions Discharge Diet: No restrictions Meaningful Use Info Meaningful Use Diagnoses (Choose all that apply): None applicable Discharge Plan Admission Admit Date/Time: 06/04/21 20:46 Primary Reason for Your Visit: End Stage Cirrhosis Attending Provider: Lucio Alaniz Primary Care Provider: Toya Mark Discharge Orders/Prescriptions Prescriptions: New furosemide 40 mg Tablet 40 mg PO BIDLX Qty: 0 RF: 0 lorazepam 0.5 mg Tablet 0.5 mg PO Q4H PRN PRN (Reason: Anxiety) Qty: 0 RF: 0 morphine concentrate 10 mg/0.5 mL Syringe 5 mg sublingual Q2H PRN PRN (Reason: Pain Score 6-10) Qty: 0 RF: 0 Continued spironolactone 25 mg Tablet 25 mg PO BID Qty: 60 RF: 0 Discontinued cholecalciferol (vitamin D3) 2,000 unit tablet 2,000 unit PO DAILY RF: 0 nitroglycerin [Nitrostat] 0.4 mg tablet, sublingual 0.4 mg SUBLINGUAL Q5-15M PRN (Reason: Cardiac/Chest Pain) RF: 0 metformin 500 mg tablet extended release 24 hr 500 mg PO DAILY RF: 0 pantoprazole 40 mg tablet,delayed release (DR/EC) 40 mg PO DAILY PRN PRN (Reason: GERD) RF: 0 magnesium oxide 400 mg (241.3 mg magnesium) tablet 400 mg PO DAILY RF: 0 furosemide 40 mg tablet 40 mg PO DAILY RF: 0 aspirin [Adult Aspirin Regimen] 81 mg tablet,delayed release (DR/EC) 81 mg PO DAILY RF: 0 losartan 100 mg tablet 50 mg PO DAILY Qty: 0 RF: 0 potassium chloride 10 mEq tablet extended release 10 meq PO RF: 0 Referrals / Follow Up: Toya Mark DO [Primary Care Provider] - Disposition Disposition (needs filled in before D/C Order can be placed): Hospice in Medical Facility Documented by User: Dr. Lucio Alaniz MD 06/07/21 11:54 Providers Date of Admission: 06/04/21 Reason For Visit: DECOMPENSATED CIRRHOSIS WITH RIGHT Medications at Discharge Home Medications spironolactone 25 mg PO BID #60 tab 05/23/21 furosemide 40 mg PO BIDLX #0 tab 06/07/21 lorazepam 0.5 mg PO Q4H PRN PRN #0 tab 06/07/21 morphine concentrate 5 mg SUBLINGUAL Q2H PRN PRN #0 ea 06/07/21 Hospital Course Operations None Summary of Care Provided Hospital Course: This patient was seen in conjunction with RICH Nash . I have independently interviewed and examined the patient and reviewed pertinent historical, laboratory, and other data. Please refer to RICH Nash note for details of this patient's presentation, findings, and recommendations. I have reviewed RICH Nash note and concur with documented findings. In brief, patient is a with multiple comorbidities admitted with progressive shortness of breath. Patient underwent ultrasound-guided thoracocentesis the day prior with 1.6 L of dark jackie-colored fluid drained. Patient was discharged on inpatient hospice facility on 06/07/2021 Assessment: 1. 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 Nonalcoholic fatty liver disease with cirrhosis 3. Ascites 4. Coagulopathy 5. Thrombocytopenia 6. History of esophageal varices 7. Essential hypertension 8. COPD 9. Paroxysmal A. fib 10. Congestive heart failure with preserved ejection fraction 11. Pulmonary hypertension with RVSP of 45 12. Restless leg syndrome 13. Physical deconditioning 14. Coronary artery disease with history of non-STEMI on 11/27/2011 as well as CABG 15. Status post pacemaker placement for conduction system disorder 16. Left bundle branch block 17. Physical deconditioning Hospital course; as documented above ABG / Lab / Microbiology Data Result Diagrams: 06/07/21 05:57 06/07/21 05:57 Discharge Plan Admission Admit Date/Time: 06/04/21 20:46 Primary Reason for Your Visit: End Stage Cirrhosis Attending Provider: Lucio Alaniz Primary Care Provider: Toya Mark Discharge Orders/Prescriptions Prescriptions: New furosemide 40 mg Tablet 40 mg PO BIDLX Qty: 0 RF: 0 lorazepam 0.5 mg Tablet 0.5 mg PO Q4H PRN PRN (Reason: Anxiety) Qty: 0 RF: 0 morphine concentrate 10 mg/0.5 mL Syringe 5 mg sublingual Q2H PRN PRN (Reason: Pain Score 6-10) Qty: 0 RF: 0 Continued spironolactone 25 mg Tablet 25 mg PO BID Qty: 60 RF: 0 Discontinued cholecalciferol (vitamin D3) 2,000 unit tablet 2,000 unit PO DAILY RF: 0 nitroglycerin [Nitrostat] 0.4 mg tablet, sublingual 0.4 mg SUBLINGUAL Q5-15M PRN (Reason: Cardiac/Chest Pain) RF: 0 metformin 500 mg tablet extended release 24 hr 500 mg PO DAILY RF: 0 pantoprazole 40 mg tablet,delayed release (DR/EC) 40 mg PO DAILY PRN PRN (Reason: GERD) RF: 0 magnesium oxide 400 mg (241.3 mg magnesium) tablet 400 mg PO DAILY RF: 0 furosemide 40 mg tablet 40 mg PO DAILY RF: 0 aspirin [Adult Aspirin Regimen] 81 mg tablet,delayed release (DR/EC) 81 mg PO DAILY RF: 0 losartan 100 mg tablet 50 mg PO DAILY Qty: 0 RF: 0 potassium chloride 10 mEq tablet extended release 10 meq PO RF: 0 Referrals / Follow Up: Toya Mark DO [Primary Care Provider] - Disposition Disposition (needs filled in before D/C Order can be placed): Hospice in Medical Facility Charges/Coding Visit Charges Inpatient E&M: 86279 Disch Hosp Hospital Course Operations None
--- NOTE | 2021-06-07 11:55 | NURSING ---
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
[2021-06-09 13:13] LABS: Pathologist Comment/Body Fluid Reviewed
[2021-06-09 19:07] LABS: pH, Body Fluid 11254 7.5 (Not Estab.)
== END 2021-06-07 12:42 | disposition hospice, inpatient (51) | DRG 441 ==
LOC: ED 17:19 → PCU 22:35
PROVIDERS: Nurse Practitioner Family; Admitting Provider Internal Medicine; Emergency Provider Student in an Organized Health Care Education/Training Program; PCP Internal Medicine; Visit Provider Internal Medicine
DX: K75.81 Nonalcoholic steatohepatitis (NASH) (principal); J96.21 Acute and chronic respiratory failure with hypoxia; I50.33 Acute on chronic diastolic (congestive) heart failure; J94.8 Other specified pleural conditions; I85.10 Secondary esophageal varices without bleeding; I42.8 Other cardiomyopathies; R18.8 Other ascites; D68.9 Coagulation defect, unspecified; J45.901 Unspecified asthma with (acute) exacerbation; J90 Pleural effusion, not elsewhere classified; D69.6 Thrombocytopenia, unspecified; E11.9 Type 2 diabetes mellitus without complications; E78.5 Hyperlipidemia, unspecified; F41.9 Anxiety disorder, unspecified; G25.81 Restless legs syndrome; I11.0 Hypertensive heart disease with heart failure; Z68.27 Body mass index [BMI] 27.0-27.9, adult; E66.9 Obesity, unspecified; I25.10 Atherosclerotic heart disease of native coronary artery without angina pectoris; I25.2 Old myocardial infarction; I27.20 Pulmonary hypertension, unspecified; I44.7 Left bundle-branch block, unspecified; I48.0 Paroxysmal atrial fibrillation; I49.5 Sick sinus syndrome; J44.9 Chronic obstructive pulmonary disease, unspecified; K21.9 Gastro-esophageal reflux disease without esophagitis; K74.60 Unspecified cirrhosis of liver; K43.9 Ventral hernia without obstruction or gangrene; M19.90 Unspecified osteoarthritis, unspecified site; Z66 Do not resuscitate; Z95.1 Presence of aortocoronary bypass graft; Z87.19 Personal history of other diseases of the digestive system; Z79.84 Long term (current) use of oral hypoglycemic drugs; Z79.82 Long term (current) use of aspirin; Z79.899 Other long term (current) drug therapy
CPT/HCPCS: 32555; 36415; 71045; 71046; 80048; 80053; 80076; 82945; 83605; 83615; 83735; 83880; 83986; 84100; 84156; 84157; 84484; 85025; 85610; 85730; 87040; 87070; 87075; 87205; 88108; 88305; 88313; 89050; 93005; 94640; 97802; 99285; A4216; J1940

== ENCOUNTER → 2024-02-20 23:59 | Outpatient (RCR) | payer MEDICARE, SELFPAY ==
[2021-05-27 15:52] LABS: Anion Gap 8 (5-15); BUN 39 mg/dL (7-18); BUN/Creat Ratio 31.5 RATIO (10-20); Calcium,Total 9.1 mg/dL (8.5-10.1); Chloride 103 mmol/L (98-107); Creatinine, Serum 1.24 mg/dL (0.55-1.02); EST Glomerular Filtration Rate 44 mL/min (>60); Est Glom Filt Rate - Afr Amer 53 mL/min (>60); Glucose 209 mg/dL (74-106); Potassium 3.9 mmol/L (3.5-5.1); Sodium Level 140 mmol/L (136-145)
== END ==
LOC: HH 05-27 14:26
PROVIDERS: PCP Internal Medicine; Visit Provider Internal Medicine
DX: Z79.899 Other long term (current) drug therapy (principal)
CPT/HCPCS: 80048